=== PATIENT | male | born 1940 | race Caucasian/White ===

== ENCOUNTER → 2023-07-18 08:32 | Outpatient (REF) | payer MEDICARE, SELFPAY ==
[2023-07-18 12:38] LABS: % Basophils 0.5 % (0-2); % Eosinophils 3.6 % (0-6); % Immature Granulocytes 0.3 % (0-0.5); % Lymphocytes 19.4 % (20.5-51.1); % Monocytes 10.6 % (1.7-9.3); % Neutrophils 65.6 % (42.2-75.2); Absolute Eosinophils 0.1 10^3/uL (0-0.7); Absolute Lymphocytes 0.8 10^3/uL (1.2-3.4); Absolute Monocytes 0.4 10^3/uL (0.1-0.6); Absolute Neutrophils 2.5 10^3/uL (1.4-6.5); Hematocrit 30.8 % (39.0-52.0); Hemoglobin 10.4 g/dL (13.0-18.0); Mean Corp Hgb Conc. 33.8 g/dL (33.0-37.0); Mean Corpuscular Hgb 32.5 pg (27.0-31.0); Mean Corpuscular Volume 96.3 fL (80.0-94.0); Mean Platelet Volume 10.2 fL (7.4-10.4); Nucleated Red Blood Cells % 0 % (-); Platelet Count 110 10^3/uL (130-400); White Blood Cell Count 3.9 10^3/uL (4.8-10.8)
[2023-07-18 12:47] LABS: INR 1.18
[2023-07-18 13:00] LABS: ALT (SGPT) 14 U/L (0-50); AST (SGOT) 27 U/L (17-59); Albumin 3.2 g/dl (3.5-5.0); Alkaline Phosphatase 40 U/L (38-126); Blood Urea Nitrogen 20 mg/dl (9-20); Calcium 9.2 mg/dl (8.4-10.2); Carbon Dioxide 22 mmol/L (22-30); Chloride 103 mmol/L (98-107); Glucose 106 mg/dl (70-99); Potassium 4.1 mmol/L (3.5-5.1); Sodium 135 mmol/L (135-145); Total Bilirubin 1.3 mg/dl (0.2-1.3); eGFR 53.84
[2023-07-18 14:50] LABS: Glycohemoglobin (HgbA1c) 5.5 % (4.0-5.6)
[2023-07-18 19:21] LABS: AFP Male/Tumor Marker 1.27 ng/ml
== END ==
LOC: HWLAB 08:32
PROVIDERS: ATTENDING PHYSICIAN Family Medicine
DX: K70.31 Alcoholic cirrhosis of liver with ascites (principal); D64.9 Anemia, unspecified; D69.6 Thrombocytopenia, unspecified; I10 Essential (primary) hypertension; R73.01 Impaired fasting glucose
CPT/HCPCS: 36415; 80053; 82105; 83036; 85025; 85610

== ENCOUNTER → 2023-07-23 10:48 | Outpatient (REF) | payer MEDICARE, SELFPAY ==
[2023-07-23 13:18] LABS: % Basophils 0.2 % (0-2); % Eosinophils 1.8 % (0-6); % Immature Granulocytes 0.2 % (0-0.5); % Monocytes 11.9 % (1.7-9.3); % Neutrophils 70.9 % (42.2-75.2); Absolute Eosinophils 0.1 10^3/uL (0-0.7); Absolute Lymphocytes 0.7 10^3/uL (1.2-3.4); Absolute Monocytes 0.6 10^3/uL (0.1-0.6); Absolute Neutrophils 3.5 10^3/uL (1.4-6.5); Hematocrit 32.3 % (39.0-52.0); Hemoglobin 10.8 g/dL (13.0-18.0); Mean Corp Hgb Conc. 33.4 g/dL (33.0-37.0); Mean Corpuscular Hgb 32.5 pg (27.0-31.0); Mean Corpuscular Volume 97.3 fL (80.0-94.0); Mean Platelet Volume 10.5 fL (7.4-10.4); Nucleated Red Blood Cells % 0 % (-); Platelet Count 119 10^3/uL (130-400); Red Blood Cell Count 3.32 10^6/uL (4.70-6.10); Red Cell Dist. Width 13.9 % (11.5-14.5); White Blood Cell Count 4.9 10^3/uL (4.8-10.8)
[2023-07-23 13:47] LABS: ALT (SGPT) 12 U/L (0-50); AST (SGOT) 26 U/L (17-59); Albumin 3.4 g/dl (3.5-5.0); Alkaline Phosphatase 40 U/L (38-126); Blood Urea Nitrogen 23 mg/dl (9-20); Calcium 9.3 mg/dl (8.4-10.2); Carbon Dioxide 24 mmol/L (22-30); Chloride 104 mmol/L (98-107); Glucose 107 mg/dl (70-99); Potassium 4.6 mmol/L (3.5-5.1); Sodium 137 mmol/L (135-145); Total Bilirubin 0.9 mg/dl (0.2-1.3); Total Protein 6.2 g/dl (6.3-8.2); eGFR 49.25
[2023-07-23 14:15] LABS: PSA, Total - Diagnostic < 0.06 ng/ml (0.0-4.0)
== END ==
LOC: HWLAB 10:48
PROVIDERS: ATTENDING PHYSICIAN Internal Medicine Hematology & Oncology; FAMILY PHYSICIAN Family Medicine
DX: C61 Malignant neoplasm of prostate (principal); C79.51 Secondary malignant neoplasm of bone; D50.9 Iron deficiency anemia, unspecified
CPT/HCPCS: 36415; 80053; 84153; 85025

== ENCOUNTER → 2023-09-12 08:21 | Outpatient (REF) | payer MEDICARE, SELFPAY | LOC: HWRAD 08:21 | PROVIDERS: ATTENDING PHYSICIAN Family Medicine | DX: R06.89 Other abnormalities of breathing (principal) | CPT/HCPCS: 71046 ==

== ENCOUNTER → 2023-09-23 09:53 | Outpatient (REF) | payer MEDICARE, SELFPAY ==
[2023-09-23 10:24] VITALS: BP 136/68; BP_SYST 81
[2023-09-23 11:21] VITALS: BP 154/64
[2023-09-23 12:13] LABS: Body Fluid Glucose 108 mg/dl; Body Fluid LDH < 90 U/L; Body Fluid Protein 2.4 g/dl
[2023-09-23 12:31] LABS: Body Fluid WBC 224 /CUMM
[2023-09-23 12:45] LABS: Body Fluid Second Tech EM
== END ==
LOC: RADI 09:53
PROVIDERS: ATTENDING PHYSICIAN Family Medicine
DX: J90 Pleural effusion, not elsewhere classified (principal); R06.02 Shortness of breath
CPT/HCPCS: 88305; 32555; 71045; 82945; 83615; 84157; 87015; 87070; 87205; 88112; 89051

== ENCOUNTER → 2023-10-04 09:06 | Outpatient (REF) | payer MEDICARE, SELFPAY | LOC: HWRAD 09:06 | PROVIDERS: ATTENDING PHYSICIAN Family Medicine | DX: J90 Pleural effusion, not elsewhere classified (principal) | CPT/HCPCS: 71046 ==

== ENCOUNTER → 2023-10-15 11:02 | Outpatient (REF) | payer MEDICARE, SELFPAY ==
[2023-10-15 15:35] LABS: % Basophils 0.3 % (0-2); % Eosinophils 3.5 % (0-6); % Immature Granulocytes 0.3 % (0-0.5); % Lymphocytes 15.1 % (20.5-51.1); % Monocytes 11.5 % (1.7-9.3); % Neutrophils 69.3 % (42.2-75.2); Absolute Eosinophils 0.2 10^3/uL (0-0.7); Absolute Lymphocytes 0.9 10^3/uL (1.2-3.4); Absolute Monocytes 0.7 10^3/uL (0.1-0.6); Hematocrit 32.6 % (39.0-52.0); Hemoglobin 10.8 g/dL (13.0-18.0); Mean Corp Hgb Conc. 33.1 g/dL (33.0-37.0); Mean Corpuscular Hgb 31.8 pg (27.0-31.0); Mean Corpuscular Volume 95.9 fL (80.0-94.0); Mean Platelet Volume 10.2 fL (7.4-10.4); Nucleated Red Blood Cells % 0 % (-); Platelet Count 120 10^3/uL (130-400); Red Cell Dist. Width 14.7 % (11.5-14.5); White Blood Cell Count 5.8 10^3/uL (4.8-10.8)
[2023-10-15 15:42] LABS: ALT (SGPT) 11 U/L (0-50); AST (SGOT) 27 U/L (17-59); Albumin 3.3 g/dl (3.5-5.0); Alkaline Phosphatase 41 U/L (38-126); Blood Urea Nitrogen 26 mg/dl (9-20); Calcium 9.1 mg/dl (8.4-10.2); Carbon Dioxide 24 mmol/L (22-30); Chloride 104 mmol/L (98-107); Glucose 95 mg/dl (70-99); Potassium 4.3 mmol/L (3.5-5.1); Sodium 134 mmol/L (135-145); Total Bilirubin 1.1 mg/dl (0.2-1.3); Total Protein 6.2 g/dl (6.3-8.2); eGFR 49.25
[2023-10-15 16:11] LABS: PSA, Total - Diagnostic < 0.06 ng/ml (0.0-4.0)
== END ==
LOC: HWLAB 11:02
PROVIDERS: ATTENDING PHYSICIAN Internal Medicine Hematology & Oncology; FAMILY PHYSICIAN Family Medicine
DX: C61 Malignant neoplasm of prostate (principal); C79.51 Secondary malignant neoplasm of bone
CPT/HCPCS: 36415; 80053; 84153; 85025

== ENCOUNTER → 2023-10-29 10:05 | Outpatient (REF) | payer MEDICARE, SELFPAY | LOC: HWRAD 10:05 | PROVIDERS: ATTENDING PHYSICIAN Family Medicine | DX: J90 Pleural effusion, not elsewhere classified (principal) | CPT/HCPCS: 71046 ==

== ENCOUNTER → 2023-12-05 08:22 | Outpatient (REF) | payer MEDICARE, SELFPAY ==
[2023-12-05 09:34] LABS: % Basophils 0.4 % (0-2); % Eosinophils 2.6 % (0-6); % Immature Granulocytes 0.4 % (0-0.5); % Lymphocytes 15.9 % (20.5-51.1); % Neutrophils 69.7 % (42.2-75.2); Absolute Eosinophils 0.1 10^3/uL (0-0.7); Absolute Lymphocytes 0.8 10^3/uL (1.2-3.4); Absolute Monocytes 0.6 10^3/uL (0.1-0.6); Absolute Neutrophils 3.5 10^3/uL (1.4-6.5); Hematocrit 31.4 % (39.0-52.0); Hemoglobin 10.4 g/dL (13.0-18.0); Mean Corp Hgb Conc. 33.1 g/dL (33.0-37.0); Mean Corpuscular Hgb 32.1 pg (27.0-31.0); Mean Corpuscular Volume 96.9 fL (80.0-94.0); Mean Platelet Volume 9.9 fL (7.4-10.4); Nucleated Red Blood Cells % 0 % (-); Platelet Count 107 10^3/uL (130-400); Red Blood Cell Count 3.24 10^6/uL (4.70-6.10); Red Cell Dist. Width 14.5 % (11.5-14.5); White Blood Cell Count 5.1 10^3/uL (4.8-10.8)
[2023-12-05 10:22] LABS: ALT (SGPT) 12 U/L (0-50); AST (SGOT) 29 U/L (17-59); Albumin 3.6 g/dl (3.5-5.0); Alkaline Phosphatase 43 U/L (38-126); Blood Urea Nitrogen 25 mg/dl (9-20); Calcium 9.1 mg/dl (8.4-10.2); Carbon Dioxide 25 mmol/L (22-30); Chloride 106 mmol/L (98-107); Glucose 101 mg/dl (70-99); Potassium 4.8 mmol/L (3.5-5.1); Sodium 138 mmol/L (135-145); Total Bilirubin 1.5 mg/dl (0.2-1.3); Total Protein 6.5 g/dl (6.3-8.2); eGFR 59.26
== END ==
LOC: HWLAB 08:22
PROVIDERS: ATTENDING PHYSICIAN Family Medicine
DX: J90 Pleural effusion, not elsewhere classified (principal); R63.4 Abnormal weight loss; K70.31 Alcoholic cirrhosis of liver with ascites
CPT/HCPCS: 36415; 71046; 80053; 85025

== ENCOUNTER → 2023-12-18 09:49 | Outpatient (REF) | payer MEDICARE, SELFPAY ==
[2023-12-18 12:10] LABS: % Basophils 0.7 % (0-2); % Eosinophils 2.5 % (0-6); % Immature Granulocytes 0.2 % (0-0.5); % Monocytes 10.2 % (1.7-9.3); % Neutrophils 71.4 % (42.2-75.2); Absolute Eosinophils 0.1 10^3/uL (0-0.7); Absolute Lymphocytes 0.9 10^3/uL (1.2-3.4); Absolute Monocytes 0.6 10^3/uL (0.1-0.6); Absolute Neutrophils 4.1 10^3/uL (1.4-6.5); Hematocrit 31.3 % (39.0-52.0); Hemoglobin 10.3 g/dL (13.0-18.0); Mean Corp Hgb Conc. 32.9 g/dL (33.0-37.0); Mean Corpuscular Volume 97.2 fL (80.0-94.0); Mean Platelet Volume 9.9 fL (7.4-10.4); Nucleated Red Blood Cells % 0 % (-); Platelet Count 116 10^3/uL (130-400); Red Blood Cell Count 3.22 10^6/uL (4.70-6.10); Red Cell Dist. Width 14.2 % (11.5-14.5); White Blood Cell Count 5.7 10^3/uL (4.8-10.8)
[2023-12-18 12:21] LABS: INR 1.09; PT 14.1 Sec (11.4-14.6)
[2023-12-18 12:22] LABS: ALT (SGPT) 13 U/L (0-50); AST (SGOT) 30 U/L (17-59); Albumin 3.7 g/dl (3.5-5.0); Alkaline Phosphatase 43 U/L (38-126); Blood Urea Nitrogen 25 mg/dl (9-20); Calcium 8.9 mg/dl (8.4-10.2); Carbon Dioxide 25 mmol/L (22-30); Chloride 105 mmol/L (98-107); Glucose 102 mg/dl (70-99); Potassium 4.5 mmol/L (3.5-5.1); Sodium 137 mmol/L (135-145); Total Bilirubin 1.4 mg/dl (0.2-1.3); Total Protein 6.5 g/dl (6.3-8.2); eGFR 49.25
[2023-12-18 13:05] LABS: AFP Male/Tumor Marker 1.23 ng/ml
== END ==
LOC: HWRAD 09:49
PROVIDERS: ATTENDING PHYSICIAN Internal Medicine Gastroenterology; FAMILY PHYSICIAN Family Medicine
DX: K74.60 Unspecified cirrhosis of liver (principal)
CPT/HCPCS: 36415; 76700; 80053; 82105; 85025; 85610

== ENCOUNTER → 2024-01-14 11:15 | Outpatient (REF) | payer MEDICARE, SELFPAY ==
[2024-01-14 15:43] LABS: % Basophils 0.4 % (0-2); % Eosinophils 2.8 % (0-6); % Immature Granulocytes 0.6 % (0-0.5); % Lymphocytes 16.8 % (20.5-51.1); % Monocytes 10.6 % (1.7-9.3); % Neutrophils 68.8 % (42.2-75.2); Absolute Eosinophils 0.2 10^3/uL (0-0.7); Absolute Lymphocytes 0.9 10^3/uL (1.2-3.4); Absolute Monocytes 0.6 10^3/uL (0.1-0.6); Absolute Neutrophils 3.6 10^3/uL (1.4-6.5); Mean Corp Hgb Conc. 34.5 g/dL (33.0-37.0); Mean Corpuscular Hgb 32.8 pg (27.0-31.0); Mean Corpuscular Volume 95.1 fL (80.0-94.0); Mean Platelet Volume 10.5 fL (7.4-10.4); Nucleated Red Blood Cells % 0 % (-); Platelet Count 118 10^3/uL (130-400); Red Blood Cell Count 3.05 10^6/uL (4.70-6.10); Red Cell Dist. Width 14.2 % (11.5-14.5); White Blood Cell Count 5.3 10^3/uL (4.8-10.8)
[2024-01-14 15:50] LABS: ALT (SGPT) 13 U/L (0-50); AST (SGOT) 28 U/L (17-59); Albumin 3.5 g/dl (3.5-5.0); Alkaline Phosphatase 41 U/L (38-126); Blood Urea Nitrogen 26 mg/dl (9-20); Calcium 9.1 mg/dl (8.4-10.2); Carbon Dioxide 26 mmol/L (22-30); Chloride 106 mmol/L (98-107); Glucose 106 mg/dl (70-99); Sodium 138 mmol/L (135-145); Total Bilirubin 0.9 mg/dl (0.2-1.3); Total Protein 6.2 g/dl (6.3-8.2); eGFR 53.84
[2024-01-14 16:22] LABS: PSA, Total - Diagnostic < 0.06 ng/ml (0.0-4.0)
== END ==
LOC: HWLAB 11:15
PROVIDERS: ATTENDING PHYSICIAN Internal Medicine Hematology & Oncology; FAMILY PHYSICIAN Family Medicine
DX: C61 Malignant neoplasm of prostate (principal); C79.51 Secondary malignant neoplasm of bone
CPT/HCPCS: 36415; 80053; 84153; 85025

== ENCOUNTER 2024-04-02 09:26 | Inpatient (IN) | payer MEDICARE, SELFPAY ==
[2024-04-01] VITALS (10 sets, daily range): BP systolic 110–150; BP diastolic 58–101; PULSE 70–81; BMI 18.9
--- NOTE | 2024-04-01 11:18 | ED.GENMED ---
History of Present Illness
General
Chief Complaint: Rectal Bleeding
Source: patient
Time Seen by Provider: 04/01/24 11:05
History of Present Illness
History of Present Illness:
84-year-old male with past medical history of hypertension, previous prostate cancer and now with radiation proctitis, liver cirrhosis presenting to the emergency department for evaluation of rectal bleeding that has been gradually worsening over
the last 2 weeks, patient noting that initially he would only have 1 bowel movement per day with blood but over the last 48 hours notes he has had 4 or more bowel movements with blood and describes the blood to be bright red in color. Patient
reports that he had a history of an AVM about 20 years ago which required repair but states at the time he was having dark stools. He denies any abdominal pain associated with this. Denies any fevers, chills, rigors. He is also denying any
lightheadedness, dizziness, chest pain, shortness of breath, exertional dyspnea. Patient is not on any anticoagulants.
Past History
Past History
ED Past Medical History: Cancer (Prostate with metastases to the bone, SCC frontal scalp and bone, thrombocytopenia, radiation proctitis), HTN and Other (Esophageal stricture, BPH)
ED Past Surgical History: Urological and Other (Resection of skin cancer)
Social History
Tobacco: Non-smoker
Alcohol: None
Drug: None
Personal:
Living: with family
Review of Systems
Review of Systems
All Other Systems: ROS reviewed and negative except as documented in HPI and ROS
Phy Exam
Physical Exam
Physical Exam:
GENERAL: Alert , thin and appears older than stated age
EYE: clear conjunctiva b/l
HEAD: NCAT
ENT: o/p clr, mmm.
CARDIAC: Regular rate and rhythm .
LUNGS: Clear breath sounds bilaterally, no acute respiratory distress, no wheezes/rales/rhonchi
ABDOMEN: Soft, without focal tenderness, no r/g, no cvat
Rectal exam: Light brown stool, trace positive, no external hemorrhoid
NEUROLOGICAL: Alert and oriented
SKIN: Warm and dry, skin intact.
MUSCULOSKELETAL: No edema, well perfused.
PSYCH: Normal and appropriate interaction.
Scores
Heart Failure Risk
Heart Failure Risk Score: Not Applicable
Heart Score for Chest Pain Patients
STEMI patient?: Not applicable
Withdrawal Assessment of Alcohol
Withdrawal Assessment Completed?: Not applicable
Course
Orders/Labs/Results
Orders:
Orders
04/01/24 11:13
Type+Screen Urgent
Complete Blood Count/With Diff Urgent
Comprehensive Metabolic Panel Urgent
PTT Urgent
Prothrombin Time Urgent
Abnormal Lab Results
04/01/24
11:13
WBC 3.5 L 10^3/uL
(4.8-10.8)
RBC 2.97 L 10^6/uL
(4.70-6.10)
Hgb 10.0 L g/dL
(13.0-18.0)
Hct 28.8 L %
(39.0-52.0)
MCV 97.0 H fL
(80.0-94.0)
MCH 33.7 H pg
(27.0-31.0)
Plt Count 87 L 10^3/uL
(130-400)
Absolute Lymphs (auto) 0.6 L 10^3/uL
(1.2-3.4)
Lymphocytes % 16.5 L %
(20.5-51.1)
Monocytes % 11.7 H %
(1.7-9.3)
BUN 30 H mg/dl
(9-20)
Creatinine 1.4 H mg/dL
(0.7-1.3)
Glucose 104 H mg/dl
(70-99)
Total Bilirubin 1.5 H mg/dl
(0.2-1.3)
Alkaline Phosphatase 32 L U/L
(38-126)
04/01/24 11:13
04/01/24 11:13
Vital Signs
Initial and Last Documented VS:
Initial Vital Signs
Temp Pulse Resp BP Pulse Ox
98.5 F 73 22 126/66 100
04/01/24 09:56 04/01/24 09:56 04/01/24 09:56 04/01/24 09:56 04/01/24 09:56
Last Documented Vital Signs
Temp Pulse Resp BP Pulse Ox
98.5 F 66 12 116/58 99
04/01/24 09:56 04/01/24 12:45 04/01/24 12:45 04/01/24 12:00 04/01/24 12:45
MDM/Problems Addressed
Differential Diagnosis Includes:
Internal/external hemorrhoidal bleeding, diverticular bleed, less concern for upper GI bleed, anemia, less concern for infectious diarrhea
MDM/Problems Addressed:
84-year-old male presenting to the emergency department for evaluation of increasingly bloodied stools over the last 2 weeks. History of radiation proctitis. Patient notes that he has had hemorrhoids in the past. There is also a history of a
small bowel AVM. Patient currently asymptomatic. Hemodynamically patient is stable. Will check labs. Patient known to Dr. Sosa from colorectal surgery and known to GI here as well. Given his age combined with chronic comorbidities patient may
require admission for further evaluation.
Chronic conditions affecting care: Other (Radiation proctitis)
*Pulse Oximetry
Patient hypoxic: no
*Critical Care Note
Total Time (30-74mins, 75-104mins- exclusive of procedures): Not Applicable
Data Reviewed
Review of Other/Old Records Reveals: Labs and Records
Patient Management
Discussion with other providers: Hospitalist
Escalation/DeEscalation of care consider admission/obs:
Patient has a chronic leukopenia. His hemoglobin is 10 which she has been around this in the past but also has had hemoglobins around 11 or 12. Patient also has a mild HANY. Given his age combined with presenting symptom as well as worsening
symptoms over the last 2 weeks will admit for hemoglobin trending as well as possible colorectal consult. Hospitalist team is aware and accepts for continued evaluation and treatment.
ED Attending Note
-
Portions of this chart may have been created with voice recognition software.� Occasional wrong word or��sound alike� substitutions may have occurred due to the inherent limitations of voice recognition software.
Discharge Plan
Departure
Patient Disposition: Admit
Date of Disposition: 04/01/24
Time of Disposition: 12:39
Presentation/result/management discussed w/ accepting MD/DO: Hospitalist
Discharge Problem:
Rectal bleeding, Anemia, HANY (acute kidney injury)
Prescriptions:
No Action
loperamide 2 MG capsule
2 mg PO Q4HPRN PRN (Reason: diarrhea )
omeprazole 20 MG capsule,delayed release(DR/EC)
20 mg PO DAILY
PreserVision AREDS 1 CAP capsule
1 cap PO DAILY
Xgeva 120 MG/1.7 ML solution
120 mg INJ [id number]
Xtandi 40 MG capsule
120 mg PO DAILY
vitamin B complex [B Complete] Tablet
1 tab PO DAILY
diphenhydramine-acetaminophen [Tylenol PM Extra Strength] 25-500 mg Tablet
1 tab PO HSPRN PRN (Reason: sleep)
leuprolide [Lupron] 1 mg/0.2 mL Kit
7.5 mg SC [id number]
Calcium 600 + D(3) 600 mg-5 mcg (200 unit) Capsule
1 cap PO DAILY
furosemide [Lasix] 20 mg tablet
20 mg PO DAILY
spironolactone 50 mg tablet
50 mg PO DAILY
Referrals:
Homar Nguyễn MD [Family Provider] -
Interventions
Interventions:
*Risk Screen - Suicide Last Done: 04/01/24 09:56
*General Assessment Last Done: 04/01/24 09:56
*Neglect/Abuse Screening Last Done: 04/01/24 09:56
*ED COVID-19 Vaccine History Last Done: 04/01/24 11:17
CL-Zvgzmh-Bjhgtxtblg Assessment Last Done: 04/01/24 11:17
ED- Cardiac Assessment Last Done: 04/01/24 11:17
ED- Pulmonary Assessment Last Done: 04/01/24 11:17
Discharge Date and Time
Print Language: JAPANESE
[2024-04-01 11:31] LABS: % Basophils 0.3 % (0-2); % Eosinophils 3.4 % (0-6); % Immature Granulocytes 0.3 % (0-0.5); % Lymphocytes 16.5 % (20.5-51.1); % Monocytes 11.7 % (1.7-9.3); % Neutrophils 67.8 % (42.2-75.2); Absolute Eosinophils 0.1 10^3/uL (0-0.7); Absolute Lymphocytes 0.6 10^3/uL (1.2-3.4); Absolute Monocytes 0.4 10^3/uL (0.1-0.6); Absolute Neutrophils 2.4 10^3/uL (1.4-6.5); Hematocrit 28.8 % (39.0-52.0); Mean Corp Hgb Conc. 34.7 g/dL (33.0-37.0); Mean Corpuscular Hgb 33.7 pg (27.0-31.0); Nucleated Red Blood Cells % 0 % (-); Platelet Count 87 10^3/uL (130-400); Red Blood Cell Count 2.97 10^6/uL (4.70-6.10); Red Cell Dist. Width 14.1 % (11.5-14.5); White Blood Cell Count 3.5 10^3/uL (4.8-10.8)
[2024-04-01 11:40] LABS: ALT (SGPT) 15 U/L (0-50); AST (SGOT) 28 U/L (17-59); Albumin 3.5 g/dl (3.5-5.0); Alkaline Phosphatase 32 U/L (38-126); Blood Urea Nitrogen 30 mg/dl (9-20); Calcium 9.5 mg/dl (8.4-10.2); Carbon Dioxide 26 mmol/L (22-30); Chloride 106 mmol/L (98-107); Glucose 104 mg/dl (70-99); Potassium 4.4 mmol/L (3.5-5.1); Sodium 142 mmol/L (135-145); Total Bilirubin 1.5 mg/dl (0.2-1.3); Total Protein 6.3 g/dl (6.3-8.2); eGFR 48.95
[2024-04-01 11:50] LABS: INR 1.11; PT 14.4 Sec (11.4-14.6)
--- NOTE | 2024-04-01 13:05 | HPS.HSE ---
Family Physician
-
Family Physician: Homar Nguyễn
Chief Complaint
-
bright red blood per rectum
History of Present Illness
Mr. Michael Guy is a 84 yo man with hx metastatic prostate CA, prior GI bleed with AVM and radiation proctitis, liver cirrhosis likely 2/2 history alcohol use, presents to the ER with complaint of rectal bleeding.
Patient states that he has had radiation proctitis and intermittent bleeding for many years. Two weeks ago frequency increased to once every other day, filled up toilet bowl. Then since Saturday has increased to daily and twice a day. Bowel
movements bloody. No fevers/chills. No abdominal pain. No chest pain or shortness of breath. No LE swelling.
He did not have decreased appetite but didn't eat since yesterday lunch and didn't drink anything this morning in preparation for possible procedure.
Medical History
Past Medical History
Past Medical History: Reports Other
Additional Past Medical History:
Prostate Cancer with Metastatic Disease to Bone
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
Depression
Radiation Proctitis
Past Surgical History: Reports Other
Additional Past Surgical History:
Skin Cancer Excision / Plastic Surgery
T&A
Social History
Tobacco: Former Smoker (Quit at age 40, but cites heavy use prior to that of 2 ppd. Total of 40+ pack years.)
Alcohol: Former (History of excessive alcohol intake (drank 'all day') and quit this 2 years ago when metastatic disease diagnosed. Now one drink per week.)
Drug: None
Employment: Retired
Family History
Family History: Other (Brother: Appendiceal Cancer)
Allergies / Home Medications
Allergies reflects when Allergies were last updated in [facility].
Home Medications with original date entered in [facility]
Allergy/Medication List:
Allergies
Allergy/AdvReac Type Severity Reaction Status Date / Time
aspirin AdvReac bleeding Verified 04/01/24 09:55
ciprofloxacin [From Cipro] AdvReac anxiety, Verified 04/01/24 09:55
trembling,
palpatations
ciprofloxacin HCl AdvReac anxiety, Verified 04/01/24 09:55
[From Cipro] trembling,
palpatations
Home Medications
denosumab 120 mg/1.7 mL (70 mg/mL) subcutaneous solution (Xgeva) 120 mg INJ [id number] prostate cancer 11/24/20
enzalutamide 40 mg capsule (Xtandi) 120 mg PO DAILY prostate cancer 11/24/20
loperamide 2 mg capsule 2 mg PO Q4HPRN PRN diarrhea 11/24/20
omeprazole 20 mg capsule,delayed release 20 mg PO DAILY Gastrointestinal issue 11/24/20
vitamins A,C,W-ybhh-tdtlzd 4,296 mcg-226 mg-90 mg capsule (PreserVision AREDS) 1 cap PO DAILY Supplement 11/24/20
calcium 600 mg (as carbonate)-vitamin D3 5 mcg (200 unit) capsule (Calcium 600 + D(3)) 1 cap PO DAILY Supplement 04/01/24
diphenhydramine 25 mg-acetaminophen 500 mg tablet (Tylenol PM Extra Strength) 1 tab PO HSPRN PRN sleep 04/01/24
furosemide 20 mg tablet (Lasix) 20 mg PO DAILY Fluid Retention/Swelling 04/01/24
leuprolide 1 mg/0.2 mL subcutaneous kit 7.5 mg SC [id number] prostate cancer 04/01/24
spironolactone 50 mg tablet 50 mg PO DAILY Blood Pressure 04/01/24
vitamin B complex 1 tab PO DAILY supplement 04/01/24
Review of Systems
-
History Source: Patient
A 12 point ROS was completed and negative except as noted: Yes
Physical Exam
Vital Signs
Vital Signs
Temp Pulse Resp BP Pulse Ox
98.5 F 66 12 116/58 99
04/01/24 09:56 04/01/24 12:45 04/01/24 12:45 04/01/24 12:00 04/01/24 12:45
Physical Exam
General: No Apparent Distress and Other (frail appearing)
HEENT: PERRLA
Respiratory: Clear, Wheezes and Decreased Breath Sounds (right lung base)
Cardiac: S1/S2 and Regular Rhythm
GI: Soft and Non Tender
Musculoskeletal: No Edema
Skin: Warm and Dry; No Rash
Psych: Calm
Laboratory Results
-
04/01/24 11:13
04/01/24 11:13
Laboratory Results
PT 14.4 Sec (11.4-14.6) 04/01/24 11:13
INR 1.11 04/01/24 11:13
APTT 33.0 Sec (23.4-35.0) 04/01/24 11:13
Total Bilirubin 1.5 mg/dl (0.2-1.3) H 04/01/24 11:13
AST 28 U/L (17-59) 04/01/24 11:13
ALT 15 U/L (0-50) 04/01/24 11:13
Alkaline Phosphatase 32 U/L (38-126) L 04/01/24 11:13
Data Reviewed
-
Diagnostic Radiology: Report Reviewed by me
Lab Data: Labs Reviewed by me
Impression/Plan
-
Mr. Michael Guy is a 84 yo man with hx metastatic prostate CA, prior GI bleed with AVM and radiation proctitis, liver cirrhosis likely 2/2 history alcohol use, presents to the ER with complaint of rectal bleeding.
Triage VS: T 98.5, P 73, RR 22, BP 126/66, SpO2 100%
Labs: WBC 3.5, Hg 10.0 (baseline), PLT 87, Na 142, K+ 4.4, BUN 30, Cr 1.4, T. Bili 1.5, AST 28, ALT 15, Alk Phos 32
Bright red blood per rectum
Hx Radiation Proctitis
-patient presents with increased frequency up to twice a day; reassuring Hg stable and VSS
-admit to observation
-trend Hg; s/p type and screen
-patient is not on blood thinners
-clears
-GI consult
Hx Metastatic Prostate CA
-patient on Lupron, Xgeva, Xtandi
Hx Alcoholic Liver disease/cirrhosis
-hold VOLUNTEER SERVICES DIRECTOR lasix/spironolactone in setting of bleed and possible need for prep and NPO
GERD
-VOLUNTEER SERVICES DIRECTOR PPI
DVT PPx SCD
DNR - discussed on admission
--- NOTE | 2024-04-01 14:04 | CON.GI ---
Addendum entered and electronically signed by Edwige James Do, MD 04/01/24 17:03:
I saw and examined the patient.
The HASSOCK MAKER's note was reviewed and I agree with the note.
Comment: Michael is an 84yo M with h/o compensated ETOH cirrhosis and prostate cancer metastatic to the bones who presents for intermittent rectal bleeding. He has remote h/o XRT over 10yrs ago. Denies AC use. There is fecal urgency and leakage.
Vitals stable, exam yellow stool lax sphincter tone. Labs reviewed Hbg 10
Impression
- Rectal bleeding
ddx radiation proctitis, rectal varix or hemorrhoidal
- Fecal incontinence
- ETOH cirrhosis
- Prostate cancer mets to bone and ? pleural effusion
Recommendations
- Golyle prep today
- CLD NPO at [place]
- Plan for colonoscopy with APC tomorrow
- Serial H/H
Will follow with you
Original Note:
Consultation
-
Date/Time Consultation Requested: 04/01/24 1330
Date/Time Consultation Performed: 04/01/24 1400
Requesting Provider: Cynthia Vaughan MD
Performing Provider: TANVI Ace, Edwige Roche MD
Reason for Consultation: rectal bleeding
Medical History
Chief Complaint / HPI
Chief Complaint: rectal bleeding
History of Present Illness:
Pt is 84yo presents with hx prostate CA with prior radiation current therapy( Leuprolide, Xgeva, Xtandi) with mets, squamous cell CA, CKD, AI, Ecoli sepsis/diverticulitis, prior GI bleeding, prior noted AVM radiation proctitis, chronic
diarrhea with Imodium use, cirrhosis with grade I EV on EGD 2021, hx paracentesis several years ago, effusion with prior thoracentesis, humphries's with current admission to ER with rectal bleeding. Pt admits to 10-12 BM daily with use of Imodium
as needed. Stools are loose with feeling of complete evacuation. He states he generally will see streaks of blood in stools and now noted over last 2 week with increased rectal bleeding with entire bowl of blood initially every other day now twice
daily. He did have colonoscopy [address] Bell with noted diverticulosis and 4mmpolyp in sigmoid TA polyp, Erythematous granular mucosa in the sigmoid colon,A few non-bleeding colonic angiectasias consistent with radiation proctitis. Pt also
admits to hx anoscopy done in office with Dr. Sosa with noted similar change of radiation proctitis review of topical therapy.
Pt otherwise admits to pill dysphagia and will get occasional abdominal pain but GERD, nausea, vomiting, constipation or black stools. Pt also with Ct 2021 with adherent stool vs polyp.
-
Past Medical History
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
(aortic insufficiency), Psychiatric (depression) and Other (radiation proctitis, radiation cystitis, ,chronic diarrhea, AVM, cirrhosis, humphries's esophagus, colon polyps, pleural effusion with prior thoracentesis last several months ago, ecoli
sepsis with diverticulitis )
Past Surgical History: Tonsilectomy and Other (mohs and plastic surgery)
Social History
Tobacco: Former Smoker
Alcohol: Former (quit 2-3 years ago)
Drug: None
Personal:
Living: With Family
Employment: Retired
Family History
Family History: Other (brother with colon and appendiceal CA)
Allergies / Home Medications
Allergy/AdvReac Type Severity Reaction Status Date / Time
aspirin AdvReac bleeding Verified 04/01/24 09:55
ciprofloxacin [From Cipro] AdvReac anxiety, Verified 04/01/24 09:55
trembling,
palpatations
ciprofloxacin HCl AdvReac anxiety, Verified 04/01/24 09:55
[From Cipro] trembling,
palpatations
�Medication �Instructions �Recorded
denosumab 120 mg/1.7 mL (70 mg/mL) 120 mg INJ [id number] prostate cancer 11/24/20
subcutaneous solution (Xgeva)
enzalutamide 40 mg capsule (Xtandi) 120 mg PO DAILY prostate cancer 11/24/20
loperamide 2 mg capsule 2 mg PO Q4HPRN PRN diarrhea 11/24/20
omeprazole 20 mg capsule,delayed 20 mg PO DAILY Gastrointestinal 11/24/20
release issue
vitamins A,C,C-cfgt-gyaufs 4,296 1 cap PO DAILY Supplement 11/24/20
mcg-226 mg-90 mg capsule
(PreserVision AREDS)
calcium 600 mg (as 1 cap PO DAILY Supplement 04/01/24
carbonate)-vitamin D3 5 mcg (200
unit) capsule (Calcium 600 + D(3))
diphenhydramine 25 1 tab PO HSPRN PRN sleep 04/01/24
mg-acetaminophen 500 mg tablet
(Tylenol PM Extra Strength)
furosemide 20 mg tablet (Lasix) 20 mg PO DAILY Fluid 04/01/24
Retention/Swelling
leuprolide 1 mg/0.2 mL 7.5 mg SC [id number] prostate cancer 04/01/24
subcutaneous kit
spironolactone 50 mg tablet 50 mg PO DAILY Blood Pressure 04/01/24
vitamin B complex 1 tab PO DAILY supplement 04/01/24
Review of Systems
-
History Source: Patient and Family
EENT: Reports No Symptoms
Respiratory: Reports Trouble Breathing (at times)
Cardiac: Reports No Symptoms
Abdomen/GI: Reports Abdominal Pain, Diarrhea and Bloody Stools
: Reports No Symptoms
Musculoskeletal: Reports No Symptoms
Skin: Reports No Symptoms
Neurological: Reports Weakness
Endocrine: Reports No Symptoms
Hematologic/Lymphatic: Reports Bleeding
Vital Signs
Temp Pulse Resp BP Pulse Ox
98.5 F 66 12 116/58 99
04/01/24 09:56 04/01/24 12:45 04/01/24 12:45 04/01/24 12:00 04/01/24 12:45
Physical Exam
Exam
General: Well Developed, Well Nourished and No Apparent Distress
HEENT: Normocephalic and Anicteric
Respiratory: Other (mild decreased right lung )
Cardiac: Regular Rhythm
GI: Soft, Non Tender and Non Distended
Rectal: Other (per Dr. Roche lax sphincter tone yellow stool, no external skin tags or hemorrhoids, no heme test done)
Genito-urinary: No Costovertebral Tender
Musculoskeletal: No Clubbing and No Cyanosis
Skin: Warm and Dry
Neuro: Awake, Alert and AO x 3
Psych: Calm
Results
WBC 3.5 10^3/uL (4.8-10.8) L 04/01/24 11:13
Hgb 10.0 g/dL (13.0-18.0) L 04/01/24 11:13
Hct 28.8 % (39.0-52.0) L 04/01/24 11:13
MCV 97.0 fL (80.0-94.0) H 04/01/24 11:13
Plt Count 87 10^3/uL (130-400) L 04/01/24 11:13
Absolute Neuts (auto) 2.4 10^3/uL (1.4-6.5) 04/01/24 11:13
PT 14.4 Sec (11.4-14.6) 04/01/24 11:13
INR 1.11 04/01/24 11:13
APTT 33.0 Sec (23.4-35.0) 04/01/24 11:13
Sodium 142 mmol/L (135-145) 04/01/24 11:13
Potassium 4.4 mmol/L (3.5-5.1) 04/01/24 11:13
Chloride 106 mmol/L (98-107) 04/01/24 11:13
Carbon Dioxide 26 mmol/L (22-30) 04/01/24 11:13
BUN 30 mg/dl (9-20) H 04/01/24 11:13
Creatinine 1.4 mg/dL (0.7-1.3) H 04/01/24 11:13
Calcium 9.5 mg/dl (8.4-10.2) 04/01/24 11:13
Total Bilirubin 1.5 mg/dl (0.2-1.3) H 04/01/24 11:13
AST 28 U/L (17-59) 04/01/24 11:13
ALT 15 U/L (0-50) 04/01/24 11:13
Alkaline Phosphatase 32 U/L (38-126) L 04/01/24 11:13
Diagnostic Image Results:
12/2023 US abdomen
1. Mildly nodular hepatic capsular contour and diffuse mildly heterogeneous hepatic echotexture consistent with the given history of cirrhosis. No suspicious focal hepatic lesions identified sonographically.
2. Trace perihepatic ascites and borderline splenomegaly, question portal hypertension. Flow in the main portal vein remains hepatopetal.
3. Cholelithiasis. No findings highly suspicious for acute cholecystitis. There is some mild gallbladder wall thickening, probable combination of underdistention and ascites.
4. Limited evaluation of midline structures secondary to overlying bowel gas as above.
2021 CT Abd/pelvis W Iv Cont; CT Chest Angio W/wo Iv Contras
Moderate to large volume ascites.
Findings suspicious for cirrhosis.
Diverticulosis without acute diverticulitis. No focal collection or abscess. No bowel obstruction. No obstructive uropathy.
Cholelithiasis.
Small to moderate right and small left pleural effusion.
Stable diffuse ectasia of the ascending aorta, measuring up to 4.5 cm. No focal aneurysmal dilatation. No evidence of aortic dissection.
Stable osteosclerotic metastatic disease.
1.5 cm soft tissue nodule along the splenic flexure colonic margin, which may be related to adherent stool. Polyp cannot be excluded. Consider further evaluation with follow-up colonoscopy.
Prior GI Procedures:
EGD: 2021 - Grade I esophageal varices.
- Normal stomach.
- A few duodenal polyps. Biopsied. bx neg
- Normal second portion of the duodenum.
Colonoscopy: [address] Bell with noted diverticulosis and 4mmpolyp in sigmoid TA polyp, Erythematous granular mucosa in the sigmoid colon,A few non-bleeding colonic angiectasias consistent with radiation proctitis
Assessment / Plan
-
Pt is 84yo presents with hx prostate CA with prior radiation with current therapy( Leuprolide, Xgeva, Xtandi) with mets, squamous cell CA, CKD, Ecoli sepsis/diverticulitis, AI, prior GI bleeding, prior noted AVM radiation proctitis, chronic
diarrhea with Imodium use, cirrhosis with grade I EV on EGD 2021, hx paracentesis several years ago, effusion with prior thoracentesis, humphries's with current admission to ER with rectal bleeding. Pt admits to 10-12 BM daily with use of Imodium
as needed. Stools are loose with feeling of complete evacuation. He states he generally will see streaks of blood in stools and now noted over last 2 week with increased rectal bleeding with entire bowl of blood initially every other day now twice
daily. He did have colonoscopy [address] Bell with noted diverticulosis and 4mmpolyp in sigmoid TA polyp, Erythematous granular mucosa in the sigmoid colon,A few non-bleeding colonic angiectasias consistent with radiation proctitis. Pt also
admits to hx anoscopy done in office with Dr. Sosa with noted similar change of radiation proctitis review of topical therapy. On admission hbg 10, platelets 87,000, creat 1.4.
-rectal bleeding
-hx metastatic prostate CA to bone -- prior radiation current Leuprolide, Xgeva, Xtandi
-cirrhosis with hx grade I EV 2021, paracentesis 2021, no HE, AFP 1.23 12/2023
-chronic diarrhea
-anemia
-hx prior noted colonic angioectasia c/w radiation proctitis
-CT 2021 with 1.5 cm soft tissue nodule along splenic flexure adherent stool vs polyp
-thrombocytopenia
other medical problems:
-squamous cell CA
- hx GI bleed
-colon polyp
-humphries's
-Ecoli sepsis diverticulitis
-pleural effusion with prior thoracentesis
-Prior ETOH abuse quit 2-3 years ago
-GERD
-CKD
-aortic insufficiency
PLAN:
etiology of bleeding related to radiation proctitis, hemorrhoids, polyps, rectal varices vs other
plan for colonoscopy tomorrow
if radiation proctitis noted reviewed with pt can consider APC during procedure
hbg stable at 10 cont to trend current MELD
ok for clear diet today
reviewed options as concern for anesthesia but now agreeable to proceed
OP follow up with Dr. Carreon with continued follow for cirrhosis -- current MELD 11
will follow
-
-
Thank you for consultation and allowing me to participate in the patient's care. Please call the salesperson burial needs GI physician during the after hours with any questions or concerns.
[2024-04-01] MEDS: NULYTELY SOLUTION 4 LITERS PO (16:04)
--- NOTE | 2024-04-01 20:25 | PTCARENOTE ---
Patient arrived via stretcher. AAOx3, VSS. Pt ambulated into the room. Incontinent of loose stool. No blood observed in liquid stools. Pt oriented to the unit. Discussed plan of care and NPO status after midnight. Call interiano is within reach.
[2024-04-01 20:48] LABS: Hematocrit 30.2 % (39.0-52.0); Hemoglobin 10.5 g/dL (13.0-18.0)
[2024-04-02] VITALS (11 sets, daily range): BP systolic 89–125; BP diastolic 50–106; BMI 18.9
[2024-04-02 06:04] LABS: Hematocrit 26.4 % (39.0-52.0); Hemoglobin 9.2 g/dL (13.0-18.0); Mean Corp Hgb Conc. 34.8 g/dL (33.0-37.0); Mean Corpuscular Hgb 32.5 pg (27.0-31.0); Mean Corpuscular Volume 93.3 fL (80.0-94.0); Mean Platelet Volume 10.4 fL (7.4-10.4); Platelet Count 78 10^3/uL (130-400); Red Blood Cell Count 2.83 10^6/uL (4.70-6.10)
[2024-04-02 06:36] LABS: ALT (SGPT) 16 U/L (0-50); AST (SGOT) 34 U/L (17-59); Albumin 3.3 g/dl (3.5-5.0); Alkaline Phosphatase 27 U/L (38-126); Blood Urea Nitrogen 30 mg/dl (9-20); Carbon Dioxide 25 mmol/L (22-30); Chloride 105 mmol/L (98-107); Estimated Creatinine Clearance 37 ml/min; Glucose 79 mg/dl (70-99); Potassium 4.3 mmol/L (3.5-5.1); Sodium 140 mmol/L (135-145); Total Bilirubin 1.6 mg/dl (0.2-1.3); Total Protein 5.8 g/dl (6.3-8.2); eGFR 58.89
[2024-04-02] MEDS: PROTONIX 40 MG PO (08:15)
[2024-04-02] MEDS: OCUVITE SOFTGEL 1 CAP PO (08:15)
--- NOTE | 2024-04-02 09:18 | W.PN.HOSP.TC ---
Today's Communication/Plan
-
f/w GI recommendations
monitor H&H
Assessment / Plan
Assessment / Plan
Physical Exam
General: No Apparent Distress and Other (frail appearing)
HEENT: PERRLA
Respiratory: Clear, Wheezes and Decreased Breath Sounds (right lung base)
Cardiac: S1/S2 and Regular Rhythm
GI: Soft and Non Tender
Musculoskeletal: No Edema
Skin: Warm and Dry; No Rash
Psych: Calm
Mr. 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
#Acute blood loss anemia
Bright red blood per rectum
Hx Radiation Proctitis
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
x of Secondary esophageal varices
-ddx radiation proctitis, rectal varix or hemorrhoidal
HGB on admission 10.0, down to 9.2
-s/p type and screen
-patient is not on blood thinners
- No abd pain, had bowel prep, for colonoscopy 04/02
Appreciate GI help
# Chronic thrombocytopenia
# HANY
Creatinine on admission 1.4, coming down to 1.2 today
No flank pain
# Hx Metastatic Prostate CA
Primary oncologist Dr Blackwood and DR Quinteros
-patient on Lupron, Xgeva, Xtandi
Hx Alcoholic Liver cirrhosis
Hx of ascites s/p paracentesis
Thrombocytopenia
-held SUBSTATION WIREMAN lasix/spironolactone in setting of bleed and possible need for prep and NPO
GERD
-SUBSTATION WIREMAN PPI
DVT PPx SCD
DNR - discussed on admission
Total time spent to see the patient on the floor, examine the patient, review data and lab results, discuss treatment plan with patient, nursing staff around 55 minutes
Anticipated Discharge: 24 - 48 hours
Subjective/Interval History
-
Date of Service: April 02, 2024
No chest pain
No sob
No headache
No rectal bleeding, took the Glycol
Objective Data
-
Labs:
Laboratory Results
04/02/24
04:39
WBC 3.0 L
Hgb 9.2 L
Hct 26.4 L
Plt Count 78 L
Sodium 140
Potassium 4.3
Chloride 105
Carbon Dioxide 25
BUN 30 H
Creatinine 1.2
Glucose 79
Calcium 9.0
Total Bilirubin 1.6 H
AST 34
ALT 16
Alkaline Phosphatase 27 L
Vital Signs:
Vital Signs
Temp Pulse Resp BP Pulse Ox
98.0 F 73 18 114/70 98
04/01/24 23:46 04/01/24 23:46 04/01/24 23:46 04/01/24 23:46 04/01/24 23:46
--- NOTE | 2024-04-02 10:25 | PTCARENOTE ---
Dr Roche evaluated patient in PACU for abdominal cramping ( #10/). Instructed to keep patient in PACU until flatus is passed. Instructed to turn patient side to side to expedite flatus, RN assisted patient with this process. No pain medication
ordered at this time. Dr Roche to re-eval patient pain level.
--- NOTE | 2024-04-02 11:27 | W.PN.UPDATE ---
Update Note
Progress Note Update
Post colonoscopy patient updated with results. D/w hospitalist who did contact oncology and colorectal surgery.
Patient later in post op area reported 9-10/10 abd pain
However vitals stable, abdominal exam soft, and he appears comfortable
Recommend ambulation and moving side to side to pass air/gas
AXR upright ordered to r/o free air.
Will follow with you
--- NOTE | 2024-04-02 11:35 | CON.CRS ---
Consultation
-
Date/Time Consultation Requested: 04/02/2024, 11:00
Date/Time Consultation Performed: 04/02/2024, 13:30
Requesting Provider: Esperanza Bang MD
Performing Provider: Elver Sosa MD
Reason for Consultation: colon mass
Medical History
-
Chief Complaint: Rectal bleeding
History of Present Illness:
84-year-old male with a PMH of stage IV prostate cancer, presents to [facility] on 04/01/2024 complaining of rectal bleeding. The patient has had diarrhea upwards of 10-15 times per day for the past several months. He has stage IV prostate
cancer and has bony mets. He is currently on Lupron, Xgeva and Xtandi and is managed by Dr. Blackwood. His previous abdominal surgery included a left groin hernia repair. He underwent a colonoscopy today by Dr. Roche and a large partially obstructing mass
in the descending colon around 50cm from anal verge. Afterwards, the patient complained of severe abdominal pain. Abdominal xray showed free air under the liver. At the bedside, the patient is shaking and complaining of severe LLQ pain. He currently
states his pain is a 9/10 and he has the chills. We have been asked for further surgical evaluation.
Past Medical History
Past Medical History: Cancer (stage IV prostate cancer, (bone mets on lupron/xgeva/xteandi) squamous cell cancer (heck/neck)), Hypercholesterolemia, Psychiatric (depression), Valvular Disease (aortic insufficiency) and Other (radiation proctitis,
renal failure, AVM, cirrhosis, humphries's esophagus)
Past Surgical History: Tonsilectomy and Other (mohs/plastic surgery)
Social History
Tobacco: Former Smoker
Alcohol: Former
Drug: None
Personal:
Living: With Family
Family History
Family History: Cancer (brother- colon and appendiceal cancer)
Allergies / Home Medications
Allergy/AdvReac Type Severity Reaction Status Date / Time
aspirin AdvReac bleeding Verified 04/01/24 09:55
ciprofloxacin [From Cipro] AdvReac anxiety, Verified 04/01/24 09:55
trembling,
palpatations
ciprofloxacin HCl AdvReac anxiety, Verified 04/01/24 09:55
[From Cipro] trembling,
palpatations
�Medication �Instructions �Recorded �Confirmed �Type
denosumab 120 mg/1.7 mL (70 mg/mL) 120 mg INJ [id number] prostate cancer 11/24/20 04/01/24 History
subcutaneous solution (Xgeva)
enzalutamide 40 mg capsule (Xtandi) 120 mg PO DAILY prostate cancer 11/24/20 04/01/24 History
loperamide 2 mg capsule 2 mg PO Q4HPRN PRN diarrhea 11/24/20 04/01/24 History
omeprazole 20 mg capsule,delayed 20 mg PO DAILY Gastrointestinal 11/24/20 04/01/24 History
release issue
vitamins A,C,Q-dsry-jcxfbe 4,296 1 cap PO DAILY Supplement 11/24/20 04/01/24 History
mcg-226 mg-90 mg capsule
(PreserVision AREDS)
calcium 600 mg (as 1 cap PO DAILY Supplement 04/01/24 04/01/24 History
carbonate)-vitamin D3 5 mcg (200
unit) capsule (Calcium 600 + D(3))
diphenhydramine 25 1 tab PO HSPRN PRN sleep 04/01/24 04/01/24 History
mg-acetaminophen 500 mg tablet
(Tylenol PM Extra Strength)
furosemide 20 mg tablet (Lasix) 20 mg PO DAILY Fluid 04/01/24 04/01/24 History
Retention/Swelling
leuprolide 1 mg/0.2 mL 7.5 mg SC [id number] prostate cancer 04/01/24 04/01/24 History
subcutaneous kit
spironolactone 50 mg tablet 50 mg PO DAILY Blood Pressure 04/01/24 04/01/24 History
vitamin B complex 1 tab PO DAILY supplement 04/01/24 04/01/24 History
Review of Systems
-
History Source: Patient
Abdomen/GI: Abdominal Pain, Diarrhea and Bloody Stools
A 10 point review of systems was completed, and was negative except as per HPI.
Physical Exam
Vital Signs
Temp 97.6 F 04/02/24 11:13
Pulse 77 04/02/24 11:13
Resp Rate 18 04/02/24 11:13
Blood pressure 115/58 04/02/24 11:13
SaO2 100 04/02/24 11:13
04/01/24 04/02/24 04/03/24
06:59 06:59 06:59
Actual Weight 59.874 kg
Body Mass Index (BMI) 18.9
Lab Results / Allergies
04/02/24 04:39
WBC 3.0 10^3/uL (4.8-10.8) L 04/02/24 04:39
Hgb 9.2 g/dL (13.0-18.0) L 04/02/24 04:39
Hct 26.4 % (39.0-52.0) L 04/02/24 04:39
Plt Count 78 10^3/uL (130-400) L 04/02/24 04:39
Abs Immat Gran (auto) 0.0 10^3/uL (0-0.05) 04/01/24 11:13
Neutrophils % 67.8 % (42.2-75.2) 04/01/24 11:13
Allergy/AdvReac Type Severity Reaction Status Date / Time
aspirin AdvReac bleeding Verified 04/01/24 09:55
ciprofloxacin [From Cipro] AdvReac anxiety, Verified 04/01/24 09:55
trembling,
palpatations
ciprofloxacin HCl AdvReac anxiety, Verified 04/01/24 09:55
[From Cipro] trembling,
palpatations
Physical Exam
General: Pain and Chills
GI: Tender (LLQ - severe)
Skin: Warm and Dry
Neuro: AO x 3
Psych: Calm
Data Reviewed
-
Medical Tests (Nuc Med, Echo etc): Other (colonoscopy report)
Labs: Labs Reviewed by me and Discussed with Physician
Old Records: Reviewed
Assessment / Plan
-
Assessment: 84 yo male with stage IV prostate cancer with a descending colon mass s/p colonoscopy with biopsies today with free air under the liver
Plan:
-Urgent OR
-NPO
-IV antibiotics
-TEDs/SCDs ordered
-Blood it application support analyst to OR
-Platelets it application support analyst the OR
-Wound RN for stoma marking
[2024-04-02] MEDS: DILAUDID 0.5 MG IV (12:15)
[2024-04-02] MEDS: NSS 500 IV (12:17)
--- NOTE | 2024-04-02 12:21 | PTCARENOTE ---
Patient returned to the GI lab with complaints of severe abdominal pain - diffuse in nature. Abdominal xray done. Hospitalist made aware. 500 ml IV bolus of NSS started. Dilaudid 0.5 mg IV given for pain. Blood consent obtained my MD. Awaiting
results of xray. Patient does have some bloody rectal discharge.
--- NOTE | 2024-04-02 12:32 | W.PN.UPDATE ---
Addendum entered and electronically signed by Esperanza Bang MD 04/02/24 13:22:
Addendum:
Perforated bowel
Patient is going to OR
c/w NPO, IV Zosyn, IV PPI, IVF for now
Transfer to high level care/ ICU-[facility]
will follow closely and manage.
Appreciate surgery help
Original Note:
Update Note
Progress Note Update
I was informed by Dr Roche about pt's post procedure abdominal pain
Saw the patient in 404-1
Pt is in distress, complaining of severe abd pain
Fresh blood per rectum , small amount
Abdomen is diffusely tender, not distended.
Bp 147/ 64
A/P Possible post op perforation, exacerbation of rectal bleeding due to colonic mass that was seen, bleeding from biopsy site Vs others
Stat NS Bolus
Will give Stat IV Dilaudid for pain
H& H checks
Cardiac tele monitoring
Blood consent signed by the patient
X ra of abdomen possible free air seen
Will transfer to higher level of care
Will follow with surgery and GI
Total critical time spent to see the patient on the floor, examine the patient, review data and lab results, discuss treatment plan with patient, GI doctor, oncology, nursing staff around 75 minutes
--- NOTE | 2024-04-02 12:37 | W.PN.UPDATE ---
Update Note
Progress Note Update
D/w radiologist. There is small volume of free air on AXR left lateral decub
Patient shivering and continued abd pain
Evaluated bedside with colorectal surgery and recommendation is for urgent surgery to treat colonic mass, rectal bleeding and perforation
Will transfer pt to ICU/higher level of care.
Two calls made to Talia went to left . Also called daughter listed and left message.
Hospitalist, RN and colorectal team updated.
--- NOTE | 2024-04-02 12:42 | PTCARENOTE ---
Abdominal xray with free air in abdomen. GI and Colorectal surgery at bedside. Patient placed on tele. Currently - Stach/heart rate 108. Patient with tremors of upper body.
[2024-04-02] MEDS: ZOSYN 50 IV ×2 (12:54→18:42)
[2024-04-02 13:09] LABS: Hemoglobin 11.4 g/dL (13.0-18.0)
[2024-04-02] MEDS: D5/0.9% SODIUM CHLORIDE 1000 IV (13:30)
--- NOTE | 2024-04-02 13:33 | WOUNDNOTE ---
[facility] RN NOTE: Patient visited for bilateral stoma marking. Patient c/o of lower abdominal pain and tenderness and was shivering during assessment. Procedure and rationale for stoma siting explained to patient and family. The recuts abdominal muscle
was located and care was taken to avoid creases and folds. Patient and family made aware that surgeon will make final determination of stoma placement. TT with Jodi MEHTA to notify that best place for stoma is below umbilical line due to many
folds in the upper quadrant. Will continue to follow with patient after surgery.
--- NOTE | 2024-04-02 13:43 | PTCARENOTE ---
Report called to OR. Patient will go to ICU after surgery. Vital signs stable.
--- NOTE | 2024-04-02 14:17 | CM ---
Alert awake oriented patient who lives with his Talia in [place] [facility] who lives in an apartment. He is independent in driving and in all activities of daily living.He had colonoscopy this am and will need to be transferred
to ICU with further surgery. LM with and daughter with no call back.
No VN hx / No SNF history
Pharmacy [facility]
PCP DR Zhong
PLAN Will depend on course of hospital stay
--- NOTE | 2024-04-02 14:32 | CM ---
Alert awake oriented patient who lives with his Talia in [facility] independent [facility] who lives in an apartment. He is independent in driving and in all activities of daily living.He had colonoscopy this am and will need to be transferred
to ICU with further surgery. LM with and daughter with no call back.
No VN hx / No SNF history
Pharmacy [facility]
PCP DR Zhong
PLAN Will depend on course of hospital stay
--- NOTE | 2024-04-02 14:40 | CON.INTV ---
Consultation
Consultation Request
Date/Time Consultation Requested: 04/02/2024-3 PM
Date/Time Consultation Performed: 04/02/2024-4 PM
Requesting Provider: Hospitalist
Performing Provider: Dr. Cotto
Reason for Consultation: Postoperative critical care management
Medical History
-
Chief Complaint: Bowel perforation
History of Present Illness:
84-year-old male with a history of stage IV prostate cancer with bone mets, hyperlipidemia, depression, radiation proctitis, cirrhosis and Paulino's esophagus who presented with significant diarrhea for several months and underwent colonoscopy noted
to have a large partially obstructing mass descending colon noted to have perforation and went to the OR-manager relocation consulted for postoperative critical care management 04/02/2024.
Past Medical History
Past Medical History: None (Prostate cancer stage IV with bony mets status post radiation on Lupron/Xgeva/Xtandi. Radiation proctitis. Squamous cell cancer skin. Hyperlipidemia. Depression. Aortic insufficiency. AVM. Cirrhosis. Paulino's
esophagus. Tonsillectomy.)
Social History
Tobacco: Former Smoker
Alcohol: Former
Drug: None
Personal:
Living: With Family
Occupational Exposures: No known asbestos exposure
Environmental Exposures: No known tuberculosis exposure
Family History
Family History: Other (Brother-colon and appendiceal cancer.)
Allergies / Home Medications
Allergies
Allergy/AdvReac Type Severity Reaction Status Date / Time
aspirin AdvReac bleeding Verified 04/01/24 09:55
ciprofloxacin [From Cipro] AdvReac anxiety, Verified 04/01/24 09:55
trembling,
palpatations
ciprofloxacin HCl AdvReac anxiety, Verified 04/01/24 09:55
[From Cipro] trembling,
palpatations
Home Medications
�Medication �Instructions �Recorded �Confirmed �Last Taken �Type
denosumab 120 mg/1.7 mL (70 mg/mL) 120 mg INJ [id number] prostate cancer 11/24/20 04/01/24 1 Month Ago History
subcutaneous solution (Xgeva) ~12/09/21
enzalutamide 40 mg capsule (Xtandi) 120 mg PO DAILY prostate cancer 11/24/20 04/01/24 03/31/24 History
loperamide 2 mg capsule 2 mg PO Q4HPRN PRN diarrhea 11/24/20 04/01/24 11/21/20 History
omeprazole 20 mg capsule,delayed 20 mg PO DAILY Gastrointestinal 11/24/20 04/01/24 03/31/24 History
release issue
vitamins A,C,H-nmxs-nqxijz 4,296 1 cap PO DAILY Supplement 11/24/20 04/01/24 03/31/24 History
mcg-226 mg-90 mg capsule
(PreserVision AREDS)
calcium 600 mg (as 1 cap PO DAILY Supplement 04/01/24 04/01/24 03/31/24 History
carbonate)-vitamin D3 5 mcg (200
unit) capsule (Calcium 600 + D(3))
diphenhydramine 25 1 tab PO HSPRN PRN sleep 04/01/24 04/01/24 Unknown History
mg-acetaminophen 500 mg tablet
(Tylenol PM Extra Strength)
furosemide 20 mg tablet (Lasix) 20 mg PO DAILY Fluid 04/01/24 04/01/24 03/31/24 History
Retention/Swelling
leuprolide 1 mg/0.2 mL 7.5 mg SC [id number] prostate cancer 04/01/24 04/01/24 Unknown History
subcutaneous kit
spironolactone 50 mg tablet 50 mg PO DAILY Blood Pressure 04/01/24 04/01/24 03/31/24 History
vitamin B complex 1 tab PO DAILY supplement 04/01/24 04/01/24 03/31/24 History
Review of Systems
-
Unable to Obtain full review of systems at this time due to: Other (Per HPI)
Vitals / Labs / Diagnostic Testing
Vital Signs
Temp Pulse Resp BP Pulse Ox
97.6 F 77 18 115/58 99
04/02/24 11:13 04/02/24 11:13 04/02/24 11:13 04/02/24 11:13 04/02/24 12:40
Lab Data
04/02/24 04:39
Diagnostic Testing:
Physical Exam
-
Exam:
Well-nourished and well-developed in no apparent distress
HEENT-atraumatic, normocephalic, oral tracheal intubation
Neck-supple, no JVD, no bruit
Heart-regular rate and rhythm-no murmurs, rubs or gallops
Chest-clear to auscultation, no wheezes, crackles, somewhat barrel chested
Abdomen-soft, nontender, nondistended, no hepatosplenomegaly
Extremities-no cyanosis, clubbing, edema and good peripheral pulses
Integument-intact, no rashes, lesions or ecchymosis
Neurology-alert and oriented, nonfocal motor and sensory exam
Assessment
-
84-year-old male with a history of stage IV prostate cancer with bone mets, hyperlipidemia, depression, radiation proctitis, cirrhosis and Paulino's esophagus who presented with significant diarrhea for several months and underwent colonoscopy noted
to have a large partially obstructing mass descending colon noted to have perforation and went to the OR-manager relocation consulted for postoperative critical care management 04/02/2024.
Colonic mass status post colonoscopy/suspected perforation
Emergent OR 04/02/2024-
Fmwikb-qmnafgbetj-cienjdoxcy 10.0
Leukopenia-WBC 3.0
Thrombocytopenia-platelets 78
Mild hyperglycemia
HANY-improved
Elevated total bilirubin
Nodular opacifications posterior lung funes measuring up to 1.2 cm on chest x-ray 11/2023
Conditions present prior to admission:
Prostate cancer stage IV with bony mets status post radiation on Lupron/Xgeva/Xtandi.
Radiation proctitis.
Squamous cell cancer skin.
Hyperlipidemia.
Depression.
Aortic insufficiency.
AVM.
Cirrhosis-former drinker
Former smoker
COPD
Right pleural effusion--1700 mL transudate 09/2023
Paulino's esophagus.
Cholelithiasis
Tonsillectomy.
Plan
Patient will be monitored closely postoperatively in the surgical intensive care unit
Ventilator settings reviewed
Spontaneous breathing trial
Check ABG
Hope to extubate
Aspiration precautions
VAP prevention protocol
Incentive spirometry
Nebulizers if needed-likely history of COPD-currently not bronchospastic
Surgery following-correspondence reviewed
Status post OR
Nasogastric tube per surgery
Wound nurse for stoma
Gastroenterology following
Colonoscopy noted-biopsy pending as well as operative pathology
Follow hemoglobin
Transfuse as needed
Monitor thrombocytopenia-again transfuse as needed
Intravenous fluids
Monitor renal function
DVT prophylaxis
GI prophylaxis
Nutrition per surgery and gastroenterology
Early mobilization
Most recent chest x-ray with 3 nodular opacifications 11/2023-CT chest recommended, repeat chest x-ray this admission reviewed-outpatient pulmonary xqyewi-fp-broxfd has COPD as well
Critical care statement: A total of 55 minutes of critical care time was provided for this patient today. This includes management of unstable vital signs, evaluation of the patient at bedside, reviewing the patient's pertinent medical records
including radiographs, microbiology, laboratory evaluations, and discussion with primary team, consultants, pharmacy, nutrition, physical therapy, case management, charge nurse, critical care nursing, and respiratory therapy.
Diagnostic data:
Chest x-ray-01/04/2022-new pleural-based mass versus right hemidiaphragm eventration versus loculated pleural effusion, COPD changes, osteopenia, mild osteoblastic metastatic disease
Chest x-ray 12/05/2023-small right pleural effusion, 3 nodular opacifications posterior lung funes measuring up to 1.2 cm, repeat CT chest recommended
CT chest 01/08/2022-large volume ascites, suspicious for cirrhosis, diverticulosis, cholelithiasis, moderate right and small left pleural effusion, no pulmonary emboli, no hilar or mediastinal mass or enlarged adenopathy
Thoracentesis 09/23/23-successful 1700 mL clear fluid removal from the right
Echocardiogram 01/09/2022-EF 60-65%, no severe valvular disease
Data Reviewed
-
EKG: Report reviewed by me
Radiology: Report reviewed by me
CT Scan: Report reviewed by me
Ultrasound: Report reviewed by me
Medical Tests (Nuc Med, Echo etc): Report reviewed by me
Labs: Labs reviewed by me
Old Records: Reviewed
Critical Care Time (in minutes): 55
[2024-04-02 16:11] LABS: B.E. - POC -4.6 mmol/L; Glucose - POC 106 mg/dl (70-99); HCO3 - POC 21 mmol/L (21-29); Hematocrit - POC 27 % PCV (42-52); Hemodilution- POC Yes; Hemoglobin Calculated - POC 9.1; Ionized Calcium - POC 1.02 mmol/L (1.12-1.27); Lactate - POC 1.53 mmol/L (0.36-0.75); O2 Saturation %Calculated-POC 99.7 % (92-96); PCO2 - POC 37 mmHg (35-45); PO2 - POC 211 mmHg (80-100); Sodium - POC 140 mmol/L (135-145); pH - POC 7.35 (7.35-7.45)
--- NOTE | 2024-04-02 17:49 | W.OR.COLCA ---
Addendum entered and electronically signed by Robert Regalado MD 04/02/24 19:16:
Correction: was loop rather than an end ileostomy.
Addendum entered and electronically signed by Robert Regalado MD 04/02/24 18:23:
Attempted to contact patient's unsuccessfully. Spoke to patient's daughter, Luly, on phone and updated.
Original Note:
Colon Cancer Post Op Note
Immediate Post Op
Primary Surgeon: Tez Regalado MD
Assisting Surgeon: Jackie Caputo MD
Pre-op Diagnosis: pneumoperitoneum
Post-op Diagnosis: same
Procedure Performed: 1) exploratory laparotomy 2) abdominal colectomy with ileostomy
Anesthesia Type: general plus local
Specimen / Cultures: abdominal colon
Estimated Blood Loss: 750 cc
Complications: no immediate
Operative Findings: 1) perforation of cecum 2) intestinal malrotation 3) splenic flexure mass with associated tattoo 4) small bowel adhesion to rectosigmoid junction 3) very oozy during operation
Colon Resection
Colon Resection
Operation performed with curative intent: No
Tumor Location: Splenic Flexure
Total Abdominal Colectomy: Ileocolic, Right Colic and Middle Colic
[2024-04-02] MEDS: NORMOSOL-R/PLASMALYTE-A 1000 IV ×2 (18:26→23:10)
[2024-04-02] MEDS: DILAUDID 0.25 MG IV (18:42)
--- NOTE | 2024-04-02 18:44 | W.PN.UPDATE ---
Update Note
Progress Note Update
I d/w surgery Dr Regalado , s/p colectomy with ileostomy
Blood loss during surgery
Will order 2 units of blood, consent signed by patient prior to surgery
Pressure support as needed to keep MAP around 65
c/w IVF
Rechecked H&H
Remains critical and intubated, receiving full resuscitative measures (patient agreed)
Check ABG post op and in AM
Chest x ray in AM
Blood work in AM
Will d/w java integration developer
[2024-04-02 18:48] LABS: % Basophils 0.2 % (0-2); % Eosinophils 0.1 % (0-6); % Immature Granulocytes 0.3 % (0-0.5); % Lymphocytes 9.7 % (20.5-51.1); % Monocytes 8.2 % (1.7-9.3); % Neutrophils 81.5 % (42.2-75.2); Absolute Lymphocytes 0.9 10^3/uL (1.2-3.4); Absolute Monocytes 0.8 10^3/uL (0.1-0.6); Absolute Neutrophils 7.9 10^3/uL (1.4-6.5); Hematocrit 24.5 % (39.0-52.0); Hemoglobin 8.5 g/dL (13.0-18.0); Mean Corp Hgb Conc. 34.7 g/dL (33.0-37.0); Mean Corpuscular Hgb 30.9 pg (27.0-31.0); Mean Corpuscular Volume 89.1 fL (80.0-94.0); Mean Platelet Volume 9.4 fL (7.4-10.4); Nucleated Red Blood Cells % 0 % (-); Platelet Count 177 10^3/uL (130-400); Red Blood Cell Count 2.75 10^6/uL (4.70-6.10); Red Cell Dist. Width 14.7 % (11.5-14.5); White Blood Cell Count 9.6 10^3/uL (4.8-10.8)
--- NOTE | 2024-04-02 18:56 | PTCARENOTE ---
Pt received to ICU bed 3368 direct back from OR.
Pt intubated on vent A/C 14/500/60%/5. FiO2 weaned to 40%. SpO2 100% at this time.
Sinus tach with first degree. No edema. Received on 4 mcg/min Levophed, weaned to 3mcg/min. BP via left radial a-line.
New colostomy RLQ. Midline incision with aqualcel C/D/I. NGT to low intermittent suction.
Hicks draining jagjit urine.
[2024-04-02 19:03] LABS: Blood Urea Nitrogen 25 mg/dl (9-20); Calcium 6.7 mg/dl (8.4-10.2); Carbon Dioxide 17 mmol/L (22-30); Chloride 108 mmol/L (98-107); Estimated Creatinine Clearance 50 ml/min; Glucose 129 mg/dl (70-99); Magnesium 1.6 mg/dl (1.6-2.3); Potassium 4.2 mmol/L (3.5-5.1); Sodium 139 mmol/L (135-145); eGFR > 60.00
--- NOTE | 2024-04-02 19:40 | W.PN.UPDATE ---
Update Note
Progress Note Update
Patient currently intubated/ postoperative. Code status discussed with the daughter Luly and changed to full code at the mean time as the patient currently intubated post operative.
--- NOTE | 2024-04-02 20:00 | PTCARENOTE ---
Resumed care of pt this evening. Received pt intubated on vent, settings: 14/500/.40/+5. Pt is drowsy but is arousable to verbal and tactile stimuli. Pt is also able to nod and shake head to yes or no questions. Pt is able to move all 4 extremities.
Pt tolerating vent settings satting at 100% pulse ox. On auscultation pt lungs sound diminished TO. Pt is NSR on tele monitor, has no edema, and pedal pulses are present bilaterally via doppler. Pt is NPO per order. NGT in the right nare and is
connected to low intermittent suctioning. Pt's BS are hypoactive. Abdomen is round and tender. Ileostomy stoma is red and budded. Pt has corley in place draining jagjit colored urine. Pt has a midline abdominal surgical incision that is covered w/ an
aquacell dressing. Some small shadowing is noted on the aquacell dressing.
[2024-04-02] MEDS: CALCIUM GLUCONATE 100 IV (21:10)
[2024-04-02 21:13] LABS: B.E. -6.1 mmol/L; HCO3 18.8 mmol/L (21-28); PCO2 34 mmHg (35-48); PO2 178 mmHg (83-108); pH 7.35 (7.35-7.45)
[2024-04-02 21:25] LABS: PT 16.2 Sec (11.4-14.6)
[2024-04-02 21:26] LABS: APTT 35.5 Sec (23.4-35.0)
[2024-04-02] MEDS: SUBLIMAZE 50 MCG IV (22:46)
[2024-04-03] VITALS (67 sets, daily range): BP systolic 67–131; BP diastolic 45–97; BMI 20.1
[2024-04-03] MEDS: ZOSYN 50 IV ×4 (00:12→18:05)
[2024-04-03 01:04] LABS: Hematocrit 25.4 % (39.0-52.0); Hemoglobin 9.2 g/dL (13.0-18.0)
[2024-04-03] MEDS: SUBLIMAZE 50 MCG IV ×3 (02:34→05:38)
[2024-04-03 04:57] LABS: B.E. -3.8 mmol/L; HCO3 20.4 mmol/L (21-28); PCO2 33 mmHg (35-48); PO2 157 mmHg (83-108)
[2024-04-03 04:58] LABS: O2 Therapy 40%
[2024-04-03 05:24] LABS: Hematocrit 24.8 % (39.0-52.0); Hemoglobin 8.9 g/dL (13.0-18.0); Mean Corp Hgb Conc. 35.9 g/dL (33.0-37.0); Mean Corpuscular Hgb 31.7 pg (27.0-31.0); Mean Corpuscular Volume 88.3 fL (80.0-94.0); Platelet Count 191 10^3/uL (130-400); Red Blood Cell Count 2.81 10^6/uL (4.70-6.10); Red Cell Dist. Width 14.7 % (11.5-14.5); White Blood Cell Count 19.7 10^3/uL (4.8-10.8)
[2024-04-03 05:39] LABS: Blood Urea Nitrogen 28 mg/dl (9-20); Calcium 7.4 mg/dl (8.4-10.2); Carbon Dioxide 19 mmol/L (22-30); Chloride 105 mmol/L (98-107); Estimated Creatinine Clearance 45 ml/min; Glucose 163 mg/dl (70-99); Magnesium 1.7 mg/dl (1.6-2.3); Potassium 4.2 mmol/L (3.5-5.1); Sodium 138 mmol/L (135-145); eGFR > 60.00
[2024-04-03] MEDS: NORMOSOL-R/PLASMALYTE-A 1000 IV (05:47)
--- NOTE | 2024-04-03 06:00 | PTCARENOTE ---
Pt on levo gtt. Titrated up to 6 mcg/min per protocol.
--- NOTE | 2024-04-03 06:37 | W.PN.HOSP.TC ---
Addendum entered and electronically signed by Esperanza Bang MD 04/03/24 12:01:
Addendum
Echo findings d/w Hand Miter Operator
LV thrombus noted
will d /w surgery about AC
Will consult cardiology
End
Original Note:
Today's Communication/Plan
-
Continue to treat with IVF, IV Abx, Pressure support
Possible extubation
Pain control
Will follow
Assessment / Plan
Assessment / Plan
Physical Exam
General: No Apparent Distress and Other (frail appearing)
HEENT: PERRLA
Respiratory: Clear, Wheezes and Decreased Breath Sounds (right lung base)
Cardiac: S1/S2 and Regular Rhythm
GI: Soft and Non Tender
Musculoskeletal: No Edema
Skin: Warm and Dry; No Rash
Psych: Calm
Mr. 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
# Acute bowel perforation post colonoscopy
s/p exploratory laparotomy, abdominal colectomy with loop ileostomy by Dr Regalado on 04/02 for perforated cecum, intestinal malrotation, splenic flexure mass, small bowel adhesion
continue post op care with bowel rest until resuming function
Order IVF, replace electrolytes as appropriate, will follow blood work until stabilizing
C/W IV Zosyn
Appreciate colorectal Surgery help
# Shock
Hard to blame one reason, I think it is a combination of hypovolemic/ hemorrhagic / septic shock/ also sedative medicine can play a role
Will do Echocardiogram to know LVEF, Last echo in 2021 showed normal LVEF.
Treating with transfusion, IVF, IV Abx, and we controlled source of bleeding ( tumor is out)
Will wean off Levophed as possible.
#Acute blood loss anemia
He presented with bright red blood per rectum and blood loss during the surgery
Order blood transfusion. Goal to keep HGB around 7.5- 8 ( hx of cirrhosis)
S/p platelet transfusion, 2 units
HGB seems to stabilize
# Operative and post op intubation
Will try to extubate today, he is following commands, although he is on pressure support for now
# Hx Radiation Proctitis
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
Hx of Secondary esophageal varices
Order IV PPI
# Chronic thrombocytopenia
Plt count is good
# HANY
Creatinine on admission 1.4, coming down to 1.2 today
No flank pain
# Hx Metastatic Prostate CA
Primary oncologist Dr Blackwood and DR Quinteros
-patient on Lupron, Xgeva, Xtandi, holding for now
Updated Dr Blackwood.
Hx Alcoholic Liver cirrhosis
Hx of ascites s/p paracentesis
Thrombocytopenia
-held RURAL CARRIER ASSOCIATE lasix/spironolactone in setting of bleeding, NPO
# Hypocalcemia, replace
#GERD
- PPI
DVT PPx SCD
DNR - discussed on admission
Total time spent to see the patient on the floor, examine the patient, review data and lab results, discuss treatment plan with patient, nursing staff around 55 minutes
Anticipated Discharge: > 48 hours
Subjective/Interval History
-
Date of Service: April 03, 2024
Post op intubated
reports abd discomfort and Endotrac tube discomfort
Objective Data
-
Labs:
Laboratory Results
04/02/24 04/02/24 04/02/24
18:28 19:23 21:03
WBC 9.6 Cancelled
Hgb 8.5 L D Cancelled
Hct 24.5 L Cancelled
Plt Count 177 D Cancelled
PT 16.2 H
INR 1.30
APTT 35.5 H
HCO3 18.8 L
Sodium 139
Potassium 4.2
Chloride 108 H
Carbon Dioxide 17 L
BUN 25 H
Creatinine 0.9
Glucose 129 H
Calcium 6.7 L* D
04/03/24 04/03/24
00:56 04:46
WBC 19.7 H
Hgb 9.2 L 8.9 L
Hct 25.4 L 24.8 L
Plt Count 191
PT
INR
APTT
HCO3 20.4 L
Sodium 138
Potassium 4.2
Chloride 105
Carbon Dioxide 19 L
BUN 28 H
Creatinine 1.0
Glucose 163 H
Calcium 7.4 L
Vital Signs:
Vital Signs
Temp Pulse Resp BP Pulse Ox
97.6 F 100 19 99/59 100
04/03/24 03:18 04/03/24 06:00 04/03/24 06:00 04/03/24 06:00 04/03/24 06:00
I&O
04/01/24 04/02/24 04/03/24
06:59 06:59 06:59
Intake Total / 2010.
Output Total 680 / 680
Balance 1331.5 / 1331.5
[2024-04-03] MEDS: D5/0.9% SODIUM CHLORIDE 1000 IV ×2 (08:40→16:47)
[2024-04-03 08:44] LABS: Absolute Neutrophils -Man Diff 16.1 10^3/uL (1.4-6.5); Anisocytosis 1+; Band Neutrophils 23 % (0-3); Lymphocytes 3 % (20-51); Metamyelocytes 7 % (-); Monocytes 8 % (2-9); Normal RBC Morphology No; Platelets Checked Yes; Segmented Neutrophils 59 % (42-75)
[2024-04-03] MEDS: PROTONIX IV 40 MG IV (08:44)
[2024-04-03 08:45] LABS: Ovalocytes 1+; Total Cells Counted 100
[2024-04-03] MEDS: NSS (PRESERVATIVE FREE) 10 ML IV (08:45)
[2024-04-03] MEDS: FLUSH (NSS) 1 FLUSH IV ×2 (08:47→16:13)
--- NOTE | 2024-04-03 08:54 | W.PN.CRS1 ---
Today's Communication / Plan
-
extubate per upper marker
lovenox
continue ngt if extubated
wean levophed gtt
continue zosyn
Assessment/Plan
-
POD#1 1) exploratory laparotomy 2) abdominal colectomy with ileostomy
-Hgb 8.9 from 9.2. Likey from blood loss anemia (750ml loss in OR).
-Extubate per pulmonology. Currently on a spontaneous breathing trial.
-OOB with PT if extubated.
-Wound RN for stoma care. Continue stoma benjie until outpatient.
-Keep corley for I/O's today.
-Start Lovenox for DVT prophylaxis. TEDS/SCDS in place.
-If extubated, remain NPO on IVFS. Keep NGT if extubated.
-Pain control: on fentanyl gtt (due to intubation).
-Wean Levophed gtt as tolerated
-Continue IV Zosyn.
-OR pathology pending.
Subjective Data
Procedure
04/02/24- 1) exploratory laparotomy 2) abdominal colectomy with ileostomy
Subjective Data
Date of Service: April 03, 2024
Patient is intubated but awake. He is able to nod 'yes' or 'no'. When asked if he has pain, he says yes. He is motioning that he wants the ETT out.
Objective Data
-
Vital Signs
Temp Pulse Resp BP Pulse Ox
97.6 F 99 16 99/59 100
04/03/24 08:30 04/03/24 08:02 04/03/24 08:02 04/03/24 06:00 04/03/24 08:02
Intake & Output
04/02/24 04/03/24 04/04/24
06:59 06:59 06:59
Intake Total
Output Total 680 / 680
Balance 1331.5 / 1331.5
Intake:
IV fluids (Total) 196. /
Levo 161.5 / 161.5
Normosol-R/Plasmalyte-A 1,000 1800 / 1800
ml @ 150 mls/hr IV .[id number] SHEBA
Rx#:[id number]
IV piggybacks 50 / 50
Output:
Urine, Voided 680 / 680
Other:
Number of approximated MODERATE 2
amounts of urine
Number of unmeasured liquid
stools
Rectum 5
Lab Results
04/03/24 04:46
04/03/24 04:46
Physical Exam
-
General: No Acute Distress and AOx3
Abdomen: Soft, Non Distended, Tender (around incision) and Other (ostomy warm and pink with stoma benjie in place, no flatus or bowel movements in the bag)
Skin: Warm and Dry
--- NOTE | 2024-04-03 09:00 | PTCARENOTE ---
Rec'd pt at 0800 resting in bed. Dozing at intervals but easily awakens and is alert and appropriate. Soft wrist restraints on for pt safety but currently is cooperative. Admits to very slight abd soreness but mostly c/o throat pain. Explanations
given to pt. [place]. Nodding and gesturing appropriately. Skin is pale wm and dry. Respirs- rec'd pt intubated . #8 Ett 24 cm daniela. - changed to the center of the mouth. BS are sl decreased throughout. Pt was on AC settings overnight but at 0800
changed to CPAP 5/PS 5 wean and currently tolerating well with RR 12-13 and TV 380-520. Sats 98%. ABG sent at [address] in the 102-104 range. + pulses. as documented. No edema. L Radial A line is intact-site wnl. Zeroed and
recalibrated. Waveform as documented. Good CMS checks to distal extrem. Congruent with cuff BP. VS as documented. Rec'd pt on IV Levophed at 7 mcg with goal of MAP >65- currently at 7 mcg as MAP's tending to run 61-62. Abd is sl tender. No BS
auscultated. R nare salem NG at 55 cm - small amt of tannish drainage to low intermittent suction. Irrigated without diff. RLQ ileostomy with small amt of brownish drainage. Stoma is pink/budded- has red rubber tube within soma. Midline abd incision
with Aquacell dressing that has some shadowing of old drainage. Hicks intact for yellow urine. IV Levophed infusing via L wrist IV site along with IV fluids- changed to D5NS at 125 ml/hr. Capped ints intact RAC and R hand sites wnl. Turned and
repositioned. Mouth care given. Plan of care reviewed with pt. Call interiano in reach.
[2024-04-03 09:07] LABS: B.E. -3.1 mmol/L; HCO3 20.6 mmol/L (21-28); PCO2 31 mmHg (35-48); PO2 161 mmHg (83-108); pH 7.43 (7.35-7.45)
--- NOTE | 2024-04-03 10:00 | PTCARENOTE ---
Tolerating wean. Will update Dr. Cotto on ABG results. ECHO being done presently.
--- NOTE | 2024-04-03 10:00 | CARDSERVDEF ---
Echocardiogram with Definity completed after protocol screening completed. Allergies verified.
Patent IV site: __R AC___
IV site flushed with 0.9% NaCl pre and post administration.
Diluted bolus method utilized to enhance visualization of ventricular roth.
Total volume given: __2__ mL
Patient tolerated all procedures well without complications.
--- NOTE | 2024-04-03 10:32 | PTCARENOTE ---
Extubated at 1020 to 2l nc with sats of 98%. Initally on extubation coughed up a large amt of thick tannish secretions with old blood. States he was just frustrated that he couldn't talk with the tube in. Speech is clear. Restraints removed
[2024-04-03] MEDS: DILAUDID 0.25 MG IV ×3 (11:50→21:25)
--- NOTE | 2024-04-03 11:50 | PTCARENOTE ---
Tolerating 2L nc with sats of 98%, Medicated currently with Dilaudid 0.25 mg IV for c/o 5/10 abd pain. Complete CHG bath given. Mouth care given. Pt remains very oriented and asks questions. Abd dressing is unchanged. Remains on IV Levophed
currently at 8 mcg. Assessment unchanged otherwise. NG flushes without diff but no drainage. Urine outputs as documented.
--- NOTE | 2024-04-03 12:11 | W.PN.GI.CBS2 ---
Addendum entered and electronically signed by Osbaldo Whitehead MD 04/03/24 15:32:
I saw and examined the patient.
The MARKETING ROTATION ASSOCIATE or PA's note was reviewed and I agree with the note.
Comment:
This patient is a 4-year-old man who is status post perforation with a finding of a colon mass and a prior history of prostate cancer. Currently he is doing well. He is not intubated and has no acute complaints.
abd: bandage and ostomy
impression:
cirrhosis
colon mass
colonic perforation
plan:
continue antibiotics
await path
other management per surgery
Original Note:
Today's Communication / Plan
-
events of 04/02 as above
now in ICU s/p extubation and doing well -- still on pressor support
cont post -op per surgery, NGT/NPO etc
cont abx
wean pressors as tolerated
await path
trend labs-- repeat MELD in AM with hx cirrhosis MELD 11 prior to surgery
support given and updated Dr. Carreon -- known OP GI following
Assessment / Plan
-
Pt is 84yo presents with hx prostate CA with prior radiation with current therapy( Leuprolide, Xgeva, Xtandi) with mets, squamous cell CA, CKD, Ecoli sepsis/diverticulitis, AI, prior GI bleeding, prior noted AVM radiation proctitis, chronic
diarrhea with Imodium use, cirrhosis with grade I EV on EGD 2021, hx paracentesis several years ago, effusion with prior thoracentesis, humphries's with current admission to ER with rectal bleeding and increased stool frequency with use of Imodium
and need for depends. He has been recommended colonoscopy Dr. Carreon with prior abnormal CT 2021 with concern for soft tissue nodularity in splenic flexure. 04/02 s/p colon with partially obs mass unable to pass, post x ray with small amount
free air, s/p exp lap ileostomy for cecal perf, malrotation and splenic flex mass, SB adhesions
04/02 colonoscopy - large internal hemorrhoids, lax sphincter tone, large partially obstructing mass descending colon unable to reach past transverse colon diverticulosis
04/02 abd X ray-Findings suspicious for small volume free air.
04/02 s/p exp lap, colectomy with ileostomy, perforation of cecum, intestinal malrotation, splenic flexure mass with tattoo, SB adhesion at rectosigmoid Junction, oozing during surgery
) exploratory laparotomy 2) abdominal colectomy with ileostomy
-s/p colonoscopy for bleeding with concern for perforation with mass and exp lap with ileostomy
-rectal bleeding with chronic diarrhea prior to admission
-hx metastatic prostate CA to bone -- prior radiation current Leuprolide, Xgeva, Xtandi
-cirrhosis with hx grade I EV 2021, paracentesis 2021, no HE, AFP 1.23 12/2023
-anemia
-hx prior noted colonic angioectasia c/w radiation proctitis
-CT 2021 with 1.5 cm soft tissue nodule along splenic flexure adherent stool vs polyp
-thrombocytopenia
other medical problems:
-squamous cell CA
- hx GI bleed
-colon polyp
-humphries's
-Ecoli sepsis diverticulitis
-pleural effusion with prior thoracentesis
-Prior ETOH abuse quit 2-3 years ago
-GERD
-CKD
-aortic insufficiency
PLAN:
events of 04/02 as above
now in ICU s/p extubation and doing well -- still on pressor support
cont post -op per surgery, NGT/NPO etc
cont abx
wean pressors as tolerated
await path
trend labs-- repeat MELD in AM with hx cirrhosis MELD 11 prior to surgery
support given and updated Dr. Carreon -- known OP GI following
Subjective
Subjective
Date of Service: April 03, 2024
NPO, no stool in ileostomy, s/p extubation and remains awake and alert
Objective
Data Reviewed
Laboratory Data:
Laboratory Results
04/03/24 04:46
04/03/24 04:46
Laboratory Results
PT 16.2 Sec (11.4-14.6) H 04/02/24 21:03
INR 1.30 04/02/24 21:03
APTT 35.5 Sec (23.4-35.0) H 04/02/24 21:03
Magnesium 1.7 mg/dl (1.6-2.3) 04/03/24 04:46
Total Bilirubin 1.6 mg/dl (0.2-1.3) H 04/02/24 04:39
AST 34 U/L (17-59) 04/02/24 04:39
ALT 16 U/L (0-50) 04/02/24 04:39
Alkaline Phosphatase 27 U/L (38-126) L 04/02/24 04:39
Vital Signs and I&O:
Vital Signs
Temp Pulse Resp BP Pulse Ox
98.2 F 95 22 98/63 100
04/03/24 11:59 04/03/24 11:00 04/03/24 11:00 04/03/24 11:00 04/03/24 11:00
I&O
04/02/24 04/03/24 04/04/24
06:59 06:59 06:59
Intake Total 2010.5 / 2184.0 673.8 / 673.8
Output Total 680 / 680 225 / 225
Balance 1331.5 / 1504.0 448.8 / 448.8
Physical Exam
Physical Exam
HEENT: Anicteric and Moist mucous membranes
Cardiology: Normal Sinus Rhythm
Pulmonary: Clear
GI: Soft, Non Distended and Tender (minimal -- mid abdominal incision intact with dressing, no drainage in ileostomy)
Extremities: No Edema
Neuro: Non Focal
--- NOTE | 2024-04-03 13:00 | PTCARENOTE ---
Pain 3/ post Dilaudid. Capped int dc'd from RAC due to leaking. Getting 1800 on IS. Levophed at 9 mcg to maintain MAP's. [place] MAP's tend to run a little lower than the cuff MAP's- will update Dr. Cotto. Pt states he normally has a somewhat low
bP.
--- NOTE | 2024-04-03 13:12 | WOUNDNOTE ---
[facility] RN NOTE: Reviewed chart and met with patient. Patient is s/p exploratory laparotomy and abdominal colectomy with ileostomy. Patient is awake and alert and asking appropriate questions. Midline dressing intact and stoma is light pink and slightly
budded. Stoma supplies ordered to room and booklet of information left for patient. Patient gave permission to order [employer] Secure Start kit to home. KIRK Rubalcava given update. Will continue to follow with patient.
--- NOTE | 2024-04-03 13:19 | CM ---
Addendum entered by Jason Benoit 04/03/24 16:01:
Eliquis 5mg BID walls checked:
30 day supplies - $120.00 co-pay
90 day supplies - $249.00 co-pay
30 day free coupon provided.
Original Note:
CM following re: discharge planning.
Discussed in rounds, reviewed pt's chart, met with pt. Per rounds meeting, pt intubated yesterday s/p operation, pt extubated this morning, remains NPO, NGT in place, continue supportive care.
Pt reports she lives with spouse at [facility], has 3 supportive children. 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 No DME, VN or SNF history.
PT and OT will evaluate the pt when clinically appropriate to determine a level of care at discharge.
D/c plan: pt possibly will need SNF level of care at [facility]. PT/OT evaluations pending.
CM will follow with discharge plan updates as hospitalization progresses
--- NOTE | 2024-04-03 14:00 | PTCARENOTE ---
INt removed from R wrist due to leaking and infiltration at the site <1inch. Family in to see pt and updated. Per Dr. Kirti bland to use cuff BP's for MAP's
[2024-04-03] MEDS: LEVOPHED 250 IV ×2 (14:02→21:24)
--- NOTE | 2024-04-03 14:30 | PTCARENOTE ---
Weaned to RA at 1430 and currently sats are 97%
--- NOTE | 2024-04-03 14:49 | CON.CAR ---
Addendum entered and electronically signed by Tanmay Man DO 04/03/24 18:13:
I saw and examined the patient.
The Public Events Facilities Rental Manager's note was reviewed and I agree with the note.
Comment:
Patient is a 84M with history of met prostate CA, cirrhosis, GERD, HTN, Paulino's, prior ETOH use who underwent colonoscopy 04/02 found to have partial obstructing mass of desc colon. Patient found to have evidence of colonic perforation and
underwent surgery (exlap colectomy, ileostomy). Post-operatively, patient noted to have hypotension, EF 40% with global hypokinesis and concern for LV thrombus. Patient reports chronic SOB but denies cp, palpitations, PND, orthopnea, edema,
distention or weakness. Patient without prior dumper bulk system but wishes to follow with our office, specifically Dr King whom his follows with as well.
Patient will likely need further evaluation for etiology of CM. For now, conservative therapy. When able and no longer hypotensive, patient to benefit from initiation of GDMT in staged fashion.
With concern for LV thrombus, patient to start OAC when able from surgical perspective. Eventual repeat TTE as OP for reassessment of LV function and thrombus.
Monitor on telemetry
Further recommendations to follow clinical course
Original Note:
Consultation
Consultation Request
Date/Time Consultation Requested: 04/03/2024
Date/Time Consultation Performed: 04/03/2024 at 1445
Requesting Provider: Dr. Bang
Performing Provider: Sofie Conley PA-C for Dr. Man
Reason for Consultation: LV thrombus on echo, reduced EF
Medical History
-
History of Present Illness:
HPI: Michael is an 84 year old male with PMH of metastatic prostate cancer, cirrhosis, GERD, HTN, Paulino's esophagus, and prior ETOH abuse who presented to [facility] for evaluation of rectal bleeding. He underwent colonoscopy 04/02 for evaluation and was
noted to have a partially obstructing mass in the descending colon. Post-procedurally, he was noted to have abdominal pain that continued to worsen and abdominal xray showed evidence of free air. He ultimately was seen by colorectal surgery and
underwent exploratory laparotomy with colectomy and ileostomy. Given shock and persistent hypotension, echo was ordered to assess EF. Echo 04/03 showed EF 40% with small, 1.0 cm LV thrombus. Cardiology consulted for evaluation. Patient reports he
has had chronic SOB for 5 years that has been unchanged. He denies any chest pain, dizziness, lightheadedness, or SOB. Currently only complaints are abdominal discomfort related to recent surgery as well as some soreness in his mouth, likely from
intubation.
PMH:
Metastatic prostate cancer
h/o XRT, on lupron, Xgeva, Xtandi
h/o cirrhosis
GERD
Paulino's Esophagus
HTN
h/o ETOH abuse
Past Medical History
Past Medical History: Other (In HPI)
Past Surgical History: Other (colectomy w/ ileostomy 04/02/2024, hernia repair 05/2022, cataract surgery, skin cancer excision)
Social History
Tobacco: Non-Smoker
Alcohol: Former
Drug: None
Personal:
Living: With Family
Employment: Retired
Family History
Family History: Cancer
Allergies / Home Medications
Allergy/AdvReac Type Severity Reaction Status Date / Time
aspirin AdvReac bleeding Verified 04/01/24 09:55
ciprofloxacin [From Cipro] AdvReac anxiety, Verified 04/01/24 09:55
trembling,
palpatations
�Medication �Instructions �Recorded �Confirmed �Type
denosumab 120 mg/1.7 mL (70 mg/mL) 120 mg INJ [id number] prostate cancer 11/24/20 04/01/24 History
subcutaneous solution (Xgeva)
enzalutamide 40 mg capsule (Xtandi) 120 mg PO DAILY prostate cancer 11/24/20 04/01/24 History
loperamide 2 mg capsule 2 mg PO Q4HPRN PRN diarrhea 11/24/20 04/01/24 History
omeprazole 20 mg capsule,delayed 20 mg PO DAILY Gastrointestinal 11/24/20 04/01/24 History
release issue
vitamins A,C,U-nzep-ddraax 4,296 1 cap PO DAILY Supplement 11/24/20 04/01/24 History
mcg-226 mg-90 mg capsule
(PreserVision AREDS)
calcium 600 mg (as 1 cap PO DAILY Supplement 04/01/24 04/01/24 History
carbonate)-vitamin D3 5 mcg (200
unit) capsule (Calcium 600 + D(3))
diphenhydramine 25 1 tab PO HSPRN PRN sleep 04/01/24 04/01/24 History
mg-acetaminophen 500 mg tablet
(Tylenol PM Extra Strength)
furosemide 20 mg tablet (Lasix) 20 mg PO DAILY Fluid 04/01/24 04/01/24 History
Retention/Swelling
leuprolide 1 mg/0.2 mL 7.5 mg SC [id number] prostate cancer 04/01/24 04/01/24 History
subcutaneous kit
spironolactone 50 mg tablet 50 mg PO DAILY Blood Pressure 04/01/24 04/01/24 History
vitamin B complex 1 tab PO DAILY supplement 04/01/24 04/01/24 History
Review of Systems
-
History Source: Patient
All other systems: Negative unless noted
Physical Exam
Vital Signs
Temp Pulse Resp BP Pulse Ox
98.2 F 95 22 98/63 98
04/03/24 11:59 04/03/24 11:00 04/03/24 11:00 04/03/24 11:00 04/03/24 14:00
Lab Results
04/03/24 04:46
04/03/24 04:46
Physical Exam
General: Well Developed, Well Nourished and No Apparent Distress
HEENT: Normocephalic, Anicteric and Moist Mucous Membranes
Respiratory: Clear and Non Labored Respirations
Cardiac: S1/S2 and Regular Rhythm
Musculoskeletal: No Clubbing, No Cyanosis and No Edema
Skin: Warm and Dry
Neuro: AO x 3 and Nonfocal/Grossly Intact
Psych: Calm
Impression / Plan
-
PCP: Dr. Patiño
Resource Specialist Teacher: None, follows w/ Dr. King
Impression:
Presented with rectal bleeding
Anemia
Cardiomyopathy, EF 40% by echo 04/03
LV thrombus
Colonic mass, perforated cecum s/p colectomy and ileostomy
Metastatic prostate cancer
h/o XRT, on lupron, Xgeva, Xtandi
h/o cirrhosis
GERD
Paulino's Esophagus
HTN
h/o ETOH abuse
Echo 01/09/2022: EF 60 to 65%, trace MR
Echo 04/03/2024: EF 40%, akinesis of the distal myocardial segments with apical dyskinesis with aneurysmal formation with small LV thrombus present at the apex, approximately 1.0 cm, trivial anterior pericardial effusion, mildly dilated aortic root,
measuring 4.4 cm at sinus of Valsalva
Plan:
-Presented with rectal bleeding. Found to have partially obstructing mass on colonoscopy.
-Severe pain post procedure, xray findings concerning for free air. Found to have perforation of the cecum during exploratory laparotomy, and underwent colectomy with ileostomy 04/02/2024.
-Ongoing hypotension and shock, on levophed. Echo checked to assess EF and found to have LV thrombus with EF 40%
-Would recommend starting AC for LV thrombus once safe from a surgical standpoint, likely 48h post op.
-Hgb 8.9 04/03. Follow closely. He has received 1 unit PRBCs, 2 units platelets this admission.
-Will have CM assess the cost of Eliquis 5mg BID. Follow up echo as OP to reassess.
-EF newly reduced, down to 40% by echo 04/03. On spironolactone as OP due to cirrhosis, on hold currently due to shock, hypotension.
-Ideally once BP improves and off pressors, would start beta louise and uptitrate GDMT as able.
-EKG reviewed, SR with 1st degree AV block.
-Continue post op care
HPI: Michael is an 84 year old male with PMH of metastatic prostate cancer, cirrhosis, GERD, HTN, Paulino's esophagus, and prior ETOH abuse who presented to [facility] for evaluation of rectal bleeding. He underwent colonoscopy 04/02 for evaluation and was
noted to have a partially obstructing mass in the descending colon. Post-procedurally, he was noted to have abdominal pain that continued to worsen and abdominal xray showed evidence of free air. He ultimately was seen by colorectal surgery and
underwent exploratory laparotomy and was found to have perforation of the cecum and underwent colectomy and ileostomy. Given shock and persistent hypotension, echo was ordered to assess EF. Echo 04/03 showed EF 40% with small, 1.0 cm LV thrombus.
Cardiology consulted for evaluation. Patient reports he has had chronic SOB for 5 years that has been unchanged. He denies any chest pain, dizziness, lightheadedness, or SOB. Currently only complaints are abdominal discomfort related to recent
surgery as well as some soreness in his mouth, likely from intubation.
Data Reviewed
-
EKG: Tracing Personally Visualized and interpreted
Radiology: Report Reviewed by me
Medical Tests (Nuc Med, Echo etc): Report Reviewed by me
Labs: Labs Reviewed by me
Old Records: Reviewed
--- NOTE | 2024-04-03 14:55 | PTCARENOTE ---
WOC RN in to speak with pt and family
--- NOTE | 2024-04-03 15:07 | PN.CDI ---
Addendum entered and electronically signed by Esperanza Bang MD 04/03/24 15:31:
cachexia
Original Note:
CDI
- -
CDI:
Physician Documentation Request
Admit Date: 04/02/24 09:26
Dear Doctor Merritt
Please review the following and provide your response in the progress notes.
Clinical Indicators:
Height: 5 ft 10 in
Weight:132
BMI:18.9
Other Clinical Notes:' (frail appearing)'
If possible, please provide an associated diagnosis related to the abnormal BMI, such as:
BMI < or = to 19
Underweight
Cachectic
- Other
Use of terms such as suspected, likely, concern for, or probable (associated with a specific diagnosis that is being evaluated, monitored, or treated as if it exists) are acceptable and can be coded in the inpatient setting, when documented at the
time of discharge.
Thank you,
Sharron Amaral RN
CDI Specialist
[place] [facility]
Please use your independent medical judgment in providing your response.
--- NOTE | 2024-04-03 15:09 | PN.CDI ---
Addendum entered and electronically signed by Esperanza Bang MD 04/03/24 15:31:
Pancytopenia
Original Note:
CDI
- -
CDI:
Physician Documentation Request
Admit Date: 04/02/24 09:26
Dear Doctor Merritt,
Please review the following and provide your response in the progress notes.
Clinical Indicators:
Pt admitted with rectal bleeding/ ABLA/ Chronic Thrombocytopenia
Trended labs below
Laboratory Tests
04/01/24 04/02/24
11:13 04:39
WBC 3.5 L 3.0 L
Hgb 10.0 L 9.2 L
Hct 28.8 L 26.4 L
Plt Count 87 L 78 L
Please provide a diagnosis for the above lab findings:
Pancytopenia
ABLA/Thrombocytopenia only
Other
Use of terms such as suspected, likely, concern for, or probable (associated with a specific diagnosis that is being evaluated, monitored, or treated as if it exists) are acceptable and can be coded in the inpatient setting, when documented at the
time of discharge.
Thank you,
Sharron Amaral RN
CDI Specialist
[place] [facility]
Please use your independent medical judgment in providing your response.
--- NOTE | 2024-04-03 17:00 | PTCARENOTE ---
Family in to visit and updated. Pt resting. Overall assessment is unchanged. Remains on RA with sats of 97%. VS as documented. Ok given to use cuff BP if needed for MAP's- Levophed weaned back down to 8 mcg at 1500 and Bp was ok then Medicated with
Dilaudid 0.25 mg IV at 1615 and Bp at 1634 dipped to the 70's via danna and 67 syst via cuff with MAP's in the 50's. Levophed put back up to 9 mcg and with some stimulation BP back up. as documented. Currently MAP 68 via cuff. Infusing via L wrist
IV site. New #22 capped int placed R wrist with excellent blood return. ABd dressing unchanged. ABd with very few hypoactive BS. NG draining small amt of tannish drainage. Hicks draining yellow urine. Ileostomy stoma is pink. Small amt of brownish
drainage. Repostioned. Call interiano in reach. Mouth care given.
--- NOTE | 2024-04-03 17:00 | PTCARENOTE ---
Family in to visit and updated. Pt resting. Overall assessment is unchanged. Remains on RA with sats of 97%. VS as documented. Ok given to use cuff BP if needed for MAP's- Levophed weaned back down to 8 mcg at 1500 and Bp was ok then Medicated with
Dilaudid 0.25 mg IV at 1615 and Bp at 1634 dipped to the 70's via danna and 67 syst via cuff with MAP's in the 50's. Levophed put back up to 9 mcg and with some stimulation BP back up. as documented. Currently MAP 68 via cuff. Infusing via L wrist
IV site. New #22 capped int placed R wrist with excellent blood return. ABd dressing unchanged. ABd with very few hypoactive BS. NG draining small amt of tannish drainage. Hicks draining yellow urine. Ileostomy stoma is pink. Small amt of bloody
brownish drainage. Repostioned. Call interiano in reach. Mouth care given.
[2024-04-03] MEDS: LOVENOX 40 MG SC (18:05)
--- NOTE | 2024-04-03 18:26 | PTCARENOTE ---
Resting, states pain med helped him and feels better. VS as documented. Remains on 9 mcg of Levophed. No other changes.
--- NOTE | 2024-04-03 18:50 | PTCARENOTE ---
Dr. Regalado in and updated.
--- NOTE | 2024-04-03 20:00 | PTCARENOTE ---
Pt Aox3, PERRY, ST on monitor HR 105-112, RA, c/o 5/10 lower abdominal pain at incision site. PRN mediation. Remains on Levophed 9mcg/33.8 mls. Left Carbon maintaining MAP 65. D5NS infusing @ 125ml/hr. Midline incision with Aquacel dressing with old
drainage. Scant jagjit output from colostomy. NGT to LIS clear brown output, irrigated with tap water. Hicks in place adequate urine output. Pt assisted with turn to sleep on right side. Pt able to make small adjustments to positioning.
[2024-04-04] VITALS (35 sets, daily range): BP systolic 85–166; BP diastolic 44–118; BMI 21.0
--- NOTE | 2024-04-04 00:30 | PTCARENOTE ---
Levophed titrated based on danna MAP. PRN pain meds, otherwise assessment unchanged.
[2024-04-04] MEDS: D5/0.9% SODIUM CHLORIDE 1000 IV ×3 (00:36→19:59)
[2024-04-04] MEDS: ZOSYN 50 IV ×5 (00:36→23:50)
[2024-04-04] MEDS: LEVOPHED 250 IV ×2 (02:07→06:30)
[2024-04-04] MEDS: DILAUDID 0.25 MG IV ×5 (02:07→21:13)
[2024-04-04 04:32] LABS: Hemoglobin 7.4 g/dL (13.0-18.0); Mean Corp Hgb Conc. 36.5 g/dL (33.0-37.0); Mean Corpuscular Hgb 32.7 pg (27.0-31.0); Mean Corpuscular Volume 89.8 fL (80.0-94.0); Mean Platelet Volume 9.7 fL (7.4-10.4); Platelet Count 118 10^3/uL (130-400); Red Blood Cell Count 2.26 10^6/uL (4.70-6.10); Red Cell Dist. Width 14.7 % (11.5-14.5); White Blood Cell Count 14.3 10^3/uL (4.8-10.8)
[2024-04-04 04:33] LABS: Hematocrit 21.1 % (39.0-52.0)
[2024-04-04 04:34] LABS: INR 1.43; PT 17.3 Sec (11.4-14.6)
[2024-04-04 04:50] LABS: ALT (SGPT) 15 U/L (0-50); AST (SGOT) 35 U/L (17-59); Albumin 2.1 g/dl (3.5-5.0); Alkaline Phosphatase < 20 U/L (38-126); Blood Urea Nitrogen 26 mg/dl (9-20); Calcium 6.8 mg/dl (8.4-10.2); Carbon Dioxide 21 mmol/L (22-30); Chloride 108 mmol/L (98-107); Estimated Creatinine Clearance 43 ml/min; Glucose 186 mg/dl (70-99); Potassium 3.3 mmol/L (3.5-5.1); Sodium 136 mmol/L (135-145); Total Bilirubin 2.9 mg/dl (0.2-1.3); Total Protein 4.3 g/dl (6.3-8.2); eGFR > 60.00
[2024-04-04 05:53] LABS: Magnesium 1.8 mg/dl (1.6-2.3)
[2024-04-04] MEDS: CALCIUM GLUCONATE 130 MG IV (06:04)
[2024-04-04] MEDS: KCL 270 MEQ IV (06:29)
--- NOTE | 2024-04-04 06:45 | W.PN.HOSP.TC ---
Today's Communication/Plan
-
Replace calcium and potassium, recheck bmp
Goal to start Systemic AC once safe. Likely 04/05
wean off Levophed if possible
IV Abx
Assessment / Plan
Assessment / Plan
Physical Exam
General: No Apparent Distress and Other (frail appearing)
HEENT: PERRLA, NG
Respiratory: Clear, Wheezes and Decreased Breath Sounds
Cardiac: S1/S2 and Regular Rhythm
GI: Soft and Non Tender, + ileostomy
Musculoskeletal: No Edema
Skin: Warm and Dry; No Rash
Psych: Calm
Mr. 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
# Acute bowel perforation post colonoscopy
s/p exploratory laparotomy, abdominal colectomy with loop ileostomy by Dr Regalado on 04/02 for perforated cecum, intestinal malrotation, splenic flexure mass, small bowel adhesion
continue post op care with bowel rest until resuming function
Ordered IVF, replace electrolytes as appropriate, will follow blood work until stabilizing
C/W IV Zosyn
NG on suction,
Appreciate colorectal Surgery help
# LV Thrombus
Possible chronic in LV
Goal to start Systemic AC once safe. Likely 04/05
# Shock
Hard to blame one reason, I think it is a combination of hypovolemic/ hemorrhagic / septic shock/
Echo showed LVEF 40%, Last echo in 2021 showed normal LVEF.
Treating with transfusion, Gentle IVF, IV Abx, and we controlled source of bleeding ( tumor is out)
Will wean off Levophed as possible.
#Acute blood loss anemia
He presented with bright red blood per rectum and blood loss during the surgery
Order blood transfusion for today, total 1 unit RBCs, 2 units platelets
Goal to keep HGB around 8 ( hx of cirrhosis)
# Operative and post op intubation
Extubated on 04/03
# Hx Radiation Proctitis
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
Hx of Secondary esophageal varices
Ordered IV PPI
# Chronic thrombocytopenia/ pancytopenia
Plt count is good
WBC is up to 14.3 post shock
# HANY
Creatinine on admission 1.4, coming down to 1.2 today
No flank pain
# Hx Metastatic Prostate CA
Primary oncologist Dr Blackwood and DR Quinteros
-patient on Lupron, Xgeva, Xtandi, holding for now
Updated Dr Blackwood.
Hx Alcoholic Liver cirrhosis
Hx of ascites s/p paracentesis
Thrombocytopenia
-held SCHOOL AIDE lasix/spironolactone in setting of bleeding, NPO
# Hypokalemia, replace
# Hypocalcemia, replace
#GERD
- PPI
DVT PPx SCD
DNR - discussed on admission
Total time spent to see the patient on the floor, examine the patient, review data and lab results, discuss treatment plan with patient and family, nursing staff around 55 minutes
Anticipated Discharge: > 48 hours
Subjective/Interval History
-
Date of Service: April 04, 2024
No fevers
Still on Levophed
Objective Data
-
Labs:
Laboratory Results
04/04/24 04/04/24
04:13 12:00
WBC 14.3 H
Hgb 7.4 L
Hct 21.1 L
Plt Count 118 L D
PT 17.3 H
INR 1.43
Sodium 136 Pending
Potassium 3.3 L Pending
Chloride 108 H Pending
Carbon Dioxide 21 L Pending
BUN 26 H Pending
Creatinine 1.1 Pending
Glucose 186 H Pending
Calcium 6.8 L* Pending
Total Bilirubin 2.9 H D
AST 35
ALT 15
Alkaline Phosphatase < 20 L
Vital Signs:
Vital Signs
Temp Pulse Resp BP Pulse Ox
98.6 F 106 26 116/64 91
04/03/24 23:45 04/04/24 04:40 04/04/24 04:40 04/04/24 04:30 04/04/24 04:40
I&O
04/02/24 04/03/24 04/04/24
06:59 06:59 06:59
Intake Total 2011.5 / 2184.0 4328.1 / 4328.1
Output Total 680 / 680 1485 / 1485
Balance 1331.5 / 1504.0 2843.1 / 2843.1
--- NOTE | 2024-04-04 07:32 | W.PN.INTV ---
Today's Communication / Plan
Recommendations
Transfuse
Wean norepinephrine
Tolerated extubation
Monitor throat pain-likely related to nasogastric tube and ET tube
Norepinephrine wean
If able to be weaned off norepinephrine then could be downgraded to telemetry-call pulmonary if respiratory issues arise
Assessment
-
84-year-old male with a history of stage IV prostate cancer with bone mets, hyperlipidemia, depression, radiation proctitis, cirrhosis and Paulino's esophagus who presented with significant diarrhea for several months and underwent colonoscopy noted
to have a large partially obstructing mass descending colon noted to have perforation and went to the OR-oil pipe inspector helper consulted for postoperative critical care management 04/02/2024.
Colonic mass status post colonoscopy/suspected perforation
Emergent OR 04/02/2024-
Uvywqo-uhcehaatzr-szecfnzopq 10.0
Leukopenia-WBC 3.0
Thrombocytopenia-platelets 78
Mild hyperglycemia
HANY-improved
Elevated total bilirubin
Nodular opacifications posterior lung funes measuring up to 1.2 cm on chest x-ray 11/2023
Conditions present prior to admission:
Prostate cancer stage IV with bony mets status post radiation on Lupron/Xgeva/Xtandi.
Radiation proctitis.
Squamous cell cancer skin.
Hyperlipidemia.
Depression.
Aortic insufficiency.
AVM.
Cirrhosis-former drinker
Former smoker
COPD
Right pleural effusion--1700 mL transudate 09/2023
Paulino's esophagus.
Cholelithiasis
Tonsillectomy.
Plan
Respiratory status improved-tolerated extubation-still critical on pressors
Wean FiO2
Aspiration precautions
Incentive spirometry encouraged
Nebulizers if needed-likely history of COPD-currently not bronchospastic
Surgery following-correspondence reviewed
Status post OR
Nasogastric tube per surgery
Wound nurse for stoma
Gastroenterology following
Colonoscopy noted-biopsy pending as well as operative pathology
Follow hemoglobin
Transfuse as needed-will receive additional unit PRBC today
Monitor thrombocytopenia-again transfuse as needed
Resume systemic anticoagulation when safe-likely 04/05/2024
Intravenous fluids
Monitor renal function
Norepinephrine wean
If throat pain persist-suspect related to nasogastric tube and endotracheal tube then consider ENT evaluation
DVT prophylaxis
GI prophylaxis
Nutrition per surgery and gastroenterology
Early mobilization
If able to be weaned off norepinephrine then transfer out of ICU-call pulmonary if respiratory issues arise
Most recent chest x-ray with 3 nodular opacifications 11/2023-CT chest recommended, repeat chest x-ray this admission reviewed-outpatient pulmonary [id number] has COPD as well
Critical care statement: A total of 40 minutes of critical care time was provided for this patient today. This includes management of unstable vital signs, evaluation of the patient at bedside, reviewing the patient's pertinent medical records
including radiographs, microbiology, laboratory evaluations, and discussion with primary team, consultants, pharmacy, nutrition, physical therapy, case management, charge nurse, critical care nursing, and respiratory therapy.
Diagnostic data:
Chest x-ray-01/04/2022-new pleural-based mass versus right hemidiaphragm eventration versus loculated pleural effusion, COPD changes, osteopenia, mild osteoblastic metastatic disease
Chest x-ray 12/05/2023-small right pleural effusion, 3 nodular opacifications posterior lung funes measuring up to 1.2 cm, repeat CT chest recommended
CT chest 01/08/2022-large volume ascites, suspicious for cirrhosis, diverticulosis, cholelithiasis, moderate right and small left pleural effusion, no pulmonary emboli, no hilar or mediastinal mass or enlarged adenopathy
Thoracentesis 09/23/23-successful 1700 mL clear fluid removal from the right
Echocardiogram 01/09/2022-EF 60-65%, no severe valvular disease
Echocardiogram 04/03/2024: EF 40%, akinesis of the distal myocardial segments with apical dyskinesis with aneurysmal formation with small LV thrombus present at the apex, approximately 1.0 cm, trivial anterior pericardial effusion, mildly dilated
aortic root, measuring 4.4 cm at sinus of Valsalva
Subjective Dataa
Subjective Data
Date of Service:
Date of Service: April 04, 2024
Chief Complaint: Tool And Die Repair Follow Up, Pulmonary Follow Up and Vent Management Follow Up
Subjective:
Tolerated extubation, complains of a sore throat, no complaints of shortness of breath, abdominal pain controlled,
Review of Systems
General: Other (Per HPI)
Objective Data
Data Reviewed
Vital Signs / I&O / Oxygen:
Vital Signs
Temp Pulse Resp BP Pulse Ox
99.9 F 106 26 116/64 91
04/04/24 07:00 04/04/24 04:40 04/04/24 04:40 04/04/24 04:30 04/04/24 04:40
Intake and Output
04/03/24 04/04/24 04/05/24
06:59 06:59 06:59
Intake Total 2011.5 / 2184.0 4328.1 / 4328.1
Output Total 680 / 680 1485 / 1485
Balance 1331.5 / 1504.0 2843.1 / 2843.1
SaO2 [CPAP/PSV] 98
SaO2 [A/C] 100
SaO2 91
Nasal Cannula flow liters per 1
minute
Physical Exam
General: Respiratory Distress (n) and Comfortable
HEENT: Normocephalic, Anicteric and Moist Mucous Membranes
Cardiovascular: Regular Rhythm
Respiratory: Wheeze (n), Crackles (n), Rhonchi (n), Non-Labored Respirations, Accessory Resp Muscle Use (n) and Stridor (n)
GI: Soft, Distended and Tender
Neurology: Awake, Alert and No Motor Deficits
Skin: Warm, Good Color, Cyanosis (n), Jaundice (n) and Rash (n)
Labs/Micro/Reports
Lab Data
04/04/24 04:13
Laboratory Results
04/03/24 04/04/24
08:57 04:13
PT 17.3 H
INR 1.43
pH 7.43
pCO2 31 L
pO2 161 H
HCO3 20.6 L
O2 Delivery Level
--- NOTE | 2024-04-04 07:58 | W.PN.CARDCBS ---
Today's Communication / Plan
-
Wean vasopressors as tolerated; would initiate BB therapy first when able
Hbg downtrending; may require further transfusion; given thrombus, start OAC when safely able
Impression / Plan
-
PCP: Dr. Patiño
Pulp Grinder: None, follows w/ Dr. King
Impression:
Presented with rectal bleeding
Anemia, worsening
- Hbg 8.9 04/03 now 7.4 04/04
Cardiomyopathy, EF 40% by echo 04/03
LV thrombus
Colonic mass, perforated cecum s/p colectomy and ileostomy
Metastatic prostate cancer
h/o XRT, on lupron, Xgeva, Xtandi
h/o cirrhosis
GERD
Paulino's Esophagus
HTN
h/o ETOH abuse
Echo 01/09/2022: EF 60 to 65%, trace MR
Echo 04/03/2024: EF 40%, akinesis of the distal myocardial segments with apical dyskinesis with aneurysmal formation with small LV thrombus present at the apex, approximately 1.0 cm, trivial anterior pericardial effusion, mildly dilated aortic root,
measuring 4.4 cm at sinus of Valsalva
Plan:
-Presented with rectal bleeding. Found to have partially obstructing mass on colonoscopy.
-Severe pain post procedure, xray findings concerning for free air. Found to have perforation of the cecum during exploratory laparotomy, and underwent colectomy with ileostomy 04/02/2024.
-Ongoing hypotension and shock, on levophed. Echo checked to assess EF and found to have LV thrombus with EF 40%
-Would recommend starting AC for LV thrombus once safe from a surgical standpoint, likely 48h post op.
-Hgb 8.9 04/03. Follow closely. He has received 1 unit PRBCs, 2 units platelets this admission.; may require further transfusion, defer to surgical service
-Will have CM assess the cost of Eliquis 5mg BID. Follow up echo as OP to reassess.
-EF newly reduced, down to 40% by echo 04/03. On spironolactone as OP due to cirrhosis, on hold currently due to shock, hypotension.
-Ideally once BP improves and off pressors, would start beta louise and initiate GDMT as able.
-EKG reviewed, SR with 1st degree AV block. tele SR/ST
-Continue post op care
HPI: Michael is an 84 year old male with PMH of metastatic prostate cancer, cirrhosis, GERD, HTN, Paulino's esophagus, and prior ETOH abuse who presented to [facility] for evaluation of rectal bleeding. He underwent colonoscopy 04/02 for evaluation and was
noted to have a partially obstructing mass in the descending colon. Post-procedurally, he was noted to have abdominal pain that continued to worsen and abdominal xray showed evidence of free air. He ultimately was seen by colorectal surgery and
underwent exploratory laparotomy and was found to have perforation of the cecum and underwent colectomy and ileostomy. Given shock and persistent hypotension, echo was ordered to assess EF. Echo 04/03 showed EF 40% with small, 1.0 cm LV thrombus.
Cardiology consulted for evaluation. Patient reports he has had chronic SOB for 5 years that has been unchanged. He denies any chest pain, dizziness, lightheadedness, or SOB. Currently only complaints are abdominal discomfort related to recent
surgery as well as some soreness in his mouth, likely from intubation.
Progress Note - Pulp Grinder
Subjective
Date of Service: April 04, 2024
Patient seen and examined this morning. No acute events overnight. Patient reporting abdominal pain. Denies cp, sob, palpitations, or weakness. Remains on levophed for BP support. Tele SR/ST. Hbg 7.4 from 8.9.
Objective
Labs:
04/04/24 04:13
Labs
Hgb 7.4 g/dL (13.0-18.0) L 04/04/24 04:13
Hct 21.1 % (39.0-52.0) L 04/04/24 04:13
Plt Count 118 10^3/uL (130-400) L D 04/04/24 04:13
PT 17.3 Sec (11.4-14.6) H 04/04/24 04:13
INR 1.43 04/04/24 04:13
APTT 35.5 Sec (23.4-35.0) H 04/02/24 21:03
Sodium 136 mmol/L (135-145) 04/04/24 04:13
Potassium 3.3 mmol/L (3.5-5.1) L 04/04/24 04:13
BUN 26 mg/dl (9-20) H 04/04/24 04:13
Creatinine 1.1 mg/dL (0.7-1.3) 04/04/24 04:13
Glucose 186 mg/dl (70-99) H 04/04/24 04:13
Vital Signs and I&O:
Vital Signs
Temp Pulse Resp BP Pulse Ox
99.9 F 106 26 116/64 91
04/04/24 07:00 04/04/24 04:40 04/04/24 04:40 04/04/24 04:30 04/04/24 04:40
Vital Signs
Temp Pulse Resp BP Pulse Ox
99.9 F 106 26 116/64 91
04/04/24 07:00 04/04/24 04:40 04/04/24 04:40 04/04/24 04:30 04/04/24 04:40
Intake & Output
04/02/24 04/03/24 04/04/24 04/05/24
06:59 06:59 06:59 06:59
Intake Total 2010.5 / 2184.0 4328.1 / 4328.1
Output Total 680 / 680 1485 / 1485
Balance 1331.5 / 1504.0 2843.1 / 2843.1
Physical Exam
Physical Exam
GENERAL: no acute distress, cacectic
EYE: sclera anicteric
NECK: Supple, no JVD
ENT: normal nose, moist mucosal membranes; NGT in place
CARDIAC: Regular rate and rhythm, +S1/S2, no murmur, rubs, or gallops
CHEST/PULMONARY: Normal effort, clear breath sounds; distant
ABDOMEN: hypoactive sounds, tender to palpation
NEUROLOGICAL: Alert and oriented x3
SKIN: Warm and dry, no rash
PSYCH: Normal and appropriate interaction.
[2024-04-04] MEDS: PROTONIX IV 40 MG IV (08:17)
[2024-04-04] MEDS: NSS (PRESERVATIVE FREE) 10 ML IV (08:17)
--- NOTE | 2024-04-04 08:30 | PTCARENOTE ---
Assumed care of pt at 0715 following shift report. Pt asleep- woken to name for assessment and care. Ox3, conversation appropriate. Reports continued generalized abdominal discomfort and pain in roof of mouth s/p ETT. Pt aware of timing for next prn
pain med. Comfort care provided. Oral care, Hicks hygiene and physical assessment completed. Tapering Levophed gtt per ordered parameters. Call interiano w/in pt reach and safe environment provided. Phone call received from pt's daughter- updated as
requested and questions answered.
--- NOTE | 2024-04-04 11:30 | PTCARENOTE ---
Pt resting quietly in bed- requesting pain med prior to time due. TT sent to Colorectal surgery PA about pt's pain control- new orders received. Pt repositioned and comfort care provided. No change from previous assessment findings. Pt's and
daughter here to visit.
[2024-04-04] MEDS: OFIRMEV 100 IV ×3 (12:05→23:54)
--- NOTE | 2024-04-04 13:56 | W.PN.GS2 ---
Addendum entered and electronically signed by Keshawn Gant MD 04/04/24 15:56:
I saw and examined the patient.
The Fiberglass Tube Molder's note was reviewed and I agree with the note.
Comment: Pain improved. Stoma producing liquid stool and flatus, minimal NGT output, denies n/v. Clamp trial initiated. Would start sips and chips if he passes. Hb trending down to 7.4 today, would hold AC until stable, SCDs for DVT ppx.
Original Note:
Today's Communication / Plan
-
NGT clamping trial
Assessment / Plan
-
84 yo male with a history of metastatic prostate cancer (tx XRT, lupron, xgeva, xtandi, cirrhosis and prior ETOH who initially presented for colonoscopy on 04/02 with partially obstructing mass of the descending colon noted with bowel perforation
during procedure taken for emergent surgery.
POD #2 exploratory laparotomy with total abdominal colectomy and diverting loop ileostomy
Afebrile
Pressors still being weaned, mild tachycarida
Extubated and on 2L NC
Pain present but decreased from previous with analgesic adjustments
NGT with minimal output; stoma functioning with flatus/liquid stool in appliance
Echo with LV thrombus
Acute anemia secondary to expected procedural losses and hemodilution; transfuse one unit this am. Previously received platelets x2 and 1 unit of PRBC's on 04/02.
--Clamp NGT and remove if tolerates/residuals low later this evening
--NPO with ice chips for comfort
--Follow CBC's
--Hold full AC until h/h stable post op
--Multimodal analgesics: ofirmev/dilaudid
--Continue to wean pressors
--Healthcare Consulting Manager, cable armorer, GI and hospitalist following as well
Subjective Data
-
Date of Service: April 04, 2024
Patient seen and examined at bedside with family present. Notes severe pain yesterday which is improving slowly (03/26 to 11/24). Reports he had mouth pain which is gone. Denies n/v.
Objective Data
-
Intake and Output
04/03/24 04/04/24 04/05/24
06:59 06:59 06:59
Intake Total 2011.5 / 2184.0 4328.1 / 4498.1 834.5 / 834.5
Output Total 680 / 680 1485 / 1585 290 / 290
Balance 1331.5 / 1504.0 2843.1 / 2913.1 544.5 / 544.5
Intake:
IV fluids (Total) 1961.5 / 2134.0 3988.1 / 4158.1 517.0 / 517.0
D5/0.9% Sodium Chloride 1,000 2750 / 2875 375 / 375
ml @ 125 mls/hr IV .Q8H [facility] Rx#
:[id number]
Levo 161.5 / 184.0 938.1 / 983.1 142.0 / 142.0
Normosol-R/Plasmalyte-A 1,000 1800 / 1950 300 / 300
ml @ 150 mls/hr IV .Q6H40M [facility]
Rx#:[id number]
IV piggybacks 50 / 50 150 / 150 67.5 / 67.5
Amount instilled into GI Tube ( 190 / 190
Total)
[place] Sump 190 / 190
Blood Product Amount Infused ( 250 / 250
mL)
Packed Rbc Leukoreduced Unit 250 / 250
[id number]
Output:
Gastrointestinal tube output ( 50 / 50
Total)
[place] Sump 50 / 50
Urine, Hicks 1435 / 1535 290 / 290
Urine, Voided 680 / 680
Vital Signs
Temp Pulse Resp BP Pulse Ox
98.4 F 102 24 105/44 96
04/04/24 12:27 04/04/24 12:27 04/04/24 12:27 04/04/24 12:27 04/04/24 11:00
Lab Results
04/04/24 04:13
Calcium 6.8 mg/dl (8.4-10.2) L* 04/04/24 04:13
Magnesium 1.8 mg/dl (1.6-2.3) 04/04/24 04:13
Total Bilirubin 2.9 mg/dl (0.2-1.3) H D 04/04/24 04:13
AST 35 U/L (17-59) 04/04/24 04:13
ALT 15 U/L (0-50) 04/04/24 04:13
Alkaline Phosphatase < 20 U/L (38-126) L 04/04/24 04:13
Total Protein 4.3 g/dl (6.3-8.2) L D 04/04/24 04:13
Albumin 2.1 g/dl (3.5-5.0) L 04/04/24 04:13
Physical Exam
-
NAD
ABD soft, generalized tenderness to light palpation, ND
Stoma pink/viable with flexible bridge and productive of stool/flatus
NGT with low output light gastric outputs
--- NOTE | 2024-04-04 15:07 | PTCARENOTE ---
Dr Gant in room to see pt. NGT clamped at 1445 per verbal order. Pt in chair position in bed. Attempted to wean down Levophed- currently at 6mcg/min- while maintaining MAP >65. IV Team RN to room to place Midline- pt tolerated well and Levophed
relocated to infuse through midline. Lt radial Joan remains in place; waveform wnl- leveled and zero balanced. Pt's and daughter gone home at this time. Pt encouraged in using IS- pulling [phone]. Call laisha w/in pt reach.
[2024-04-04 15:17] LABS: Blood Urea Nitrogen 22 mg/dl (9-20); Calcium 7.5 mg/dl (8.4-10.2); Carbon Dioxide 18 mmol/L (22-30); Chloride 111 mmol/L (98-107); Estimated Creatinine Clearance 50 ml/min; Glucose 153 mg/dl (70-99); Potassium 4.1 mmol/L (3.5-5.1); Sodium 135 mmol/L (135-145); eGFR > 60.00
[2024-04-04] MEDS: LOVENOX 40 MG SC (18:07)
--- NOTE | 2024-04-04 19:48 | PTCARENOTE ---
Pt AOx3, NSR/ST on monitor, pain well controlled with Ofirmev. Levophed titrated for MAP >65. 2Lit o2 sats 92-94%, lungs diminished, encouraging IS. Right nare NGT Clamped, will check residual at 2100. Pt denies N/V. Abdominal incision intact, old
drainage. Ileostomy out put green bile. Hicks in place, jagjit urine. Hicks care complete. Pt appears comfortable at this time, Q2hour turns with pillows.
--- NOTE | 2024-04-04 21:29 | PTCARENOTE ---
NGT with no residual, pt has NO nausea or vomiting. NGT pulled at 2130. Pt also passed small gelatinous blood tinged mucus via rectum.
[2024-04-05] VITALS (29 sets, daily range): BP systolic 85–128; BP diastolic 45–87; BMI 21.8
[2024-04-05] MEDS: D5/0.9% SODIUM CHLORIDE IV ×2 (00:07→18:15)
[2024-04-05] MEDS: LEVOPHED 250 IV (01:00)
[2024-04-05] MEDS: D5/0.9% SODIUM CHLORIDE 1000 IV (04:00)
[2024-04-05] MEDS: DILAUDID 0.25 MG IV (04:06)
[2024-04-05 05:05] LABS: Hematocrit 23.9 % (39.0-52.0); Hemoglobin 8.4 g/dL (13.0-18.0); Mean Corp Hgb Conc. 35.1 g/dL (33.0-37.0); Mean Corpuscular Hgb 31.6 pg (27.0-31.0); Mean Corpuscular Volume 89.8 fL (80.0-94.0); Red Blood Cell Count 2.66 10^6/uL (4.70-6.10); Red Cell Dist. Width 15.3 % (11.5-14.5); White Blood Cell Count 6.2 10^3/uL (4.8-10.8)
[2024-04-05 05:08] LABS: Blood Urea Nitrogen 18 mg/dl (9-20); Calcium 7.3 mg/dl (8.4-10.2); Carbon Dioxide 18 mmol/L (22-30); Chloride 112 mmol/L (98-107); Estimated Creatinine Clearance 50 ml/min; Glucose 146 mg/dl (70-99); Magnesium 1.8 mg/dl (1.6-2.3); Potassium 3.6 mmol/L (3.5-5.1); Sodium 138 mmol/L (135-145); eGFR > 60.00
[2024-04-05 05:37] LABS: Mean Platelet Volume 10.1 fL (7.4-10.4)
[2024-04-05 05:38] LABS: Platelet Count 66 10^3/uL (130-400)
[2024-04-05] MEDS: ZOSYN 50 IV ×4 (06:08→23:35)
--- NOTE | 2024-04-05 06:54 | W.PN.HOSP.TC ---
Today's Communication/Plan
-
DC A line if possible
Star low dose Midodrine
Wean off Levophed/ Patient runs low BP at baseline
Out of bed protocol
Surgery recommends to hold on AC for today
Assessment / Plan
Assessment / Plan
Physical Exam
General: No Apparent Distress and Other (frail appearing)
HEENT: PERRLA, off NG, nasal O2
Respiratory: Clear, Wheezes and Decreased Breath Sounds
Cardiac: S1/S2 and Regular Rhythm
GI: Soft and Non Tender, + ileostomy
Musculoskeletal: No Edema
Skin: Warm and Dry; No Rash
Psych: Calm
Mr. 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
# Acute bowel perforation post colonoscopy
s/p exploratory laparotomy, abdominal colectomy with loop ileostomy by Dr Regalado on 04/02 for perforated cecum, intestinal malrotation, splenic flexure mass, small bowel adhesion
continue post op care with bowel rest until resuming function
Ordered IVF, replace electrolytes as appropriate, Can try liquids
C/W IV Zosyn, total 5 days, day # 3
WBC normalized
OR culture no growth,
NG is removed
Appreciate colorectal Surgery help
# LV Thrombus
Possible chronic in LV
Goal to start Systemic AC, will reach out to surgery today
# Shock
Hard to blame one reason, I think it is a combination of hypovolemic/ hemorrhagic / septic shock/
Echo showed LVEF 40%, Last echo in 2021 showed normal LVEF.
S/P 3 units total of RBCs transfusion, IVF, IV Abx and we controlled source of bleeding ( tumor is out)
Will wean off Levophed as possible. Start oral Midodrine
#Acute blood loss anemia
He presented with bright red blood per rectum and blood loss during the surgery
Order blood transfusion for today, total 1 unit RBCs, 2 units platelets
Goal to keep HGB around 8 ( hx of cirrhosis)
# Operative and post op intubation
Extubated on 04/03
# Hx Radiation Proctitis
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
Hx of Secondary esophageal varices
Ordered IV PPI
# Chronic thrombocytopenia/ pancytopenia
Plt count is good
WBC is up to 14.3 post shock
# HANY
Creatinine on admission 1.4, coming down to 1.2 today
No flank pain
# Hx Metastatic Prostate CA
Primary oncologist Dr Blackwood and DR Quinteros
-patient on Lupron, Xgeva, Xtandi, holding for now
Updated Dr Blackwood.
Hx Alcoholic Liver cirrhosis
Hx of ascites s/p paracentesis
Thrombocytopenia
-held OUT OF TOWN COLLECTION CLERK lasix/spironolactone in setting of bleeding, NPO
# Hypokalemia, replace
# Hypocalcemia, replace
#GERD
- PPI
DVT PPx SCD
DNR - discussed on admission
Total time spent to see the patient on the floor, examine the patient, review data and lab results, discuss treatment plan with patient and family, nursing staff around 55 minutes
Anticipated Discharge: > 48 hours
Subjective/Interval History
-
Date of Service: April 05, 2024
Objective Data
-
Labs:
Laboratory Results
04/05/24
04:18
WBC 6.2
Hgb 8.4 L
Hct 23.9 L
Plt Count 66 L D
Sodium 138
Potassium 3.6
Chloride 112 H
Carbon Dioxide 18 L
BUN 18
Creatinine 1.0
Glucose 146 H
Calcium 7.3 L
Vital Signs:
Vital Signs
Temp Pulse Resp BP Pulse Ox
98.0 F 92 24 92/59 93
04/05/24 03:38 04/05/24 06:45 04/05/24 06:45 04/04/24 13:19 04/05/24 06:45
I&O
04/03/24 04/04/24 04/05/24
06:59 06:59 06:59
Intake Total 2011.5 / 2184.0 4328.1 / 4498.1 3910.0 / 3910.0
Output Total 680 / 680 1485 / 1585 1465 / 1465
Balance 1331.5 / 1504.0 2843.1 / 2913.1 2445.0 / 2445.0
--- NOTE | 2024-04-05 07:47 | W.PN.INTV ---
Today's Communication / Plan
Recommendations
Wean pressors
Wean oxygen
Antibiotics
Activity of diet per surgery
If able to be weaned off pressors then transfer out of ICU-call pulmonary if respiratory issues arise
Assessment
-
84-year-old male with a history of stage IV prostate cancer with bone mets, hyperlipidemia, depression, radiation proctitis, cirrhosis and Paulino's esophagus who presented with significant diarrhea for several months and underwent colonoscopy noted
to have a large partially obstructing mass descending colon noted to have perforation and went to the OR-aeronautical project engineer consulted for postoperative critical care management 04/02/2024.
Colonic mass status post colonoscopy/suspected perforation
Emergent OR 04/02/2024-
Lcgssq-pedsblmcps-fcyfdmqeck 10.0
Leukopenia-WBC 3.0
Thrombocytopenia-platelets 78
Mild hyperglycemia
HANY-improved
Elevated total bilirubin
Nodular opacifications posterior lung funes measuring up to 1.2 cm on chest x-ray 11/2023
Conditions present prior to admission:
Prostate cancer stage IV with bony mets status post radiation on Lupron/Xgeva/Xtandi.
Radiation proctitis.
Squamous cell cancer skin.
Hyperlipidemia.
Depression.
Aortic insufficiency.
AVM.
Cirrhosis-former drinker
Former smoker
COPD
Right pleural effusion--1700 mL transudate 09/2023
Paulino's esophagus.
Cholelithiasis
Tonsillectomy.
Plan
Remains critically ill on pressors
Wean FiO2
Aspiration precautions
Incentive spirometry encouraged
Nebulizers if needed-likely history of COPD-currently not bronchospastic
Surgery following-correspondence reviewed
Status post OR
Nasogastric tube per surgery
Wound nurse for stoma
Discontinue arterial line
Wean and norepinephrine
Low-dose midodrine initiated
Gastroenterology following
Colonoscopy noted-biopsy pending as well as operative pathology
Follow hemoglobin
Transfuse as needed-will receive additional unit PRBC today
Monitor thrombocytopenia-again transfuse as needed
Resume systemic anticoagulation when safe-likely 04/05/2024
Intravenous fluids
Monitor renal function
If throat pain persist-suspect related to nasogastric tube and endotracheal tube then consider ENT evaluation
DVT prophylaxis-on Lovenox
GI prophylaxis-on pantoprazole
Nutrition per surgery and gastroenterology
Early mobilization
If able to be weaned off norepinephrine then transfer out of ICU-call pulmonary if respiratory issues arise
Most recent chest x-ray with 3 nodular opacifications 11/2023-CT chest recommended, repeat chest x-ray this admission reviewed-outpatient pulmonary [id number] has COPD as well
Critical care statement: A total of 40 minutes of critical care time was provided for this patient today. This includes management of unstable vital signs, evaluation of the patient at bedside, reviewing the patient's pertinent medical records
including radiographs, pressor management, microbiology, laboratory evaluations, and discussion with primary team, consultants, pharmacy, nutrition, physical therapy, case management, charge nurse, critical care nursing, and respiratory therapy.
Diagnostic data:
Chest x-ray-01/04/2022-new pleural-based mass versus right hemidiaphragm eventration versus loculated pleural effusion, COPD changes, osteopenia, mild osteoblastic metastatic disease
Chest x-ray 12/05/2023-small right pleural effusion, 3 nodular opacifications posterior lung funes measuring up to 1.2 cm, repeat CT chest recommended
CT chest 01/08/2022-large volume ascites, suspicious for cirrhosis, diverticulosis, cholelithiasis, moderate right and small left pleural effusion, no pulmonary emboli, no hilar or mediastinal mass or enlarged adenopathy
Thoracentesis 09/23/23-successful 1700 mL clear fluid removal from the right
Echocardiogram 01/09/2022-EF 60-65%, no severe valvular disease
Echocardiogram 04/03/2024: EF 40%, akinesis of the distal myocardial segments with apical dyskinesis with aneurysmal formation with small LV thrombus present at the apex, approximately 1.0 cm, trivial anterior pericardial effusion, mildly dilated
aortic root, measuring 4.4 cm at sinus of Valsalva
Subjective Dataa
Subjective Data
Date of Service:
Date of Service: April 05, 2024
Chief Complaint: Lens Matcher Follow Up, Pulmonary Follow Up and Vent Management Follow Up
Subjective:
Feels better with nasogastric tube out, less throat pain, some mild shortness of breath, no chest pain
Review of Systems
General: Other (Per HPI)
Objective Data
Data Reviewed
Vital Signs / I&O / Oxygen:
Vital Signs
Temp Pulse Resp BP Pulse Ox
97.4 F 92 24 92/59 93
04/05/24 07:00 04/05/24 06:45 04/05/24 06:45 04/04/24 13:19 04/05/24 06:45
Intake and Output
04/04/24 04/05/24 04/06/24
06:59 06:59 06:59
Intake Total 4328.1 / 4498.1 3910.0 / 3910.0
Output Total 1485 / 1585 1465 / 1465
Balance 2843.1 / 2913.1 2445.0 / 2445.0
SaO2 [CPAP/PSV] 98
SaO2 [A/C] 100
SaO2 93
Nasal Cannula flow liters per 2
minute
Physical Exam
General: Respiratory Distress (n) and Comfortable
HEENT: Normocephalic, Anicteric and Moist Mucous Membranes
Cardiovascular: Regular Rhythm
Respiratory: Wheeze (n), Crackles (n), Rhonchi (n), Non-Labored Respirations, Accessory Resp Muscle Use (n) and Stridor (n)
GI: Soft, Distended and Tender
Neurology: Awake, Alert and No Motor Deficits
Skin: Warm, Good Color, Cyanosis (n), Jaundice (n) and Rash (n)
Labs/Micro/Reports
Lab Data
04/05/24 04:18
04/05/24 04:18
--- NOTE | 2024-04-05 08:10 | W.PN.CARDCBS ---
Today's Communication / Plan
-
GDMT when able; levophed remains at 2
Monitor PLT/HH; currently stable without signs of bleeding; OAC for thrombus when OK with surgery
Impression / Plan
-
PCP: Dr. Patiño
Pecan Grower: None, follows w/ Dr. King
Impression:
Presented with rectal bleeding
Anemia, worsening
- Hbg 8.9 04/03 now 7.4 04/04, 8.4 04/05
Thrombocytopenia
- Plt 66 04/05 (prev 118; history of low plt during this admission)
Cardiomyopathy, EF 40% by echo 04/03
LV thrombus
Colonic mass, perforated cecum s/p colectomy and ileostomy
Metastatic prostate cancer
h/o XRT, on lupron, Xgeva, Xtandi
h/o cirrhosis
GERD
Paulino's Esophagus
HTN
h/o ETOH abuse
Echo 01/09/2022: EF 60 to 65%, trace MR
Echo 04/03/2024: EF 40%, akinesis of the distal myocardial segments with apical dyskinesis with aneurysmal formation with small LV thrombus present at the apex, approximately 1.0 cm, trivial anterior pericardial effusion, mildly dilated aortic root,
measuring 4.4 cm at sinus of Valsalva
Plan:
-Presented with rectal bleeding. Found to have partially obstructing mass on colonoscopy.
-Severe pain post procedure, xray findings concerning for free air. Found to have perforation of the cecum during exploratory laparotomy, and underwent colectomy with ileostomy 04/02/2024.
-Ongoing hypotension and shock, on levophed. Echo checked to assess EF and found to have LV thrombus with EF 40%
-Would recommend starting AC for LV thrombus once safe from a surgical standpoint, likely 48h post op.
-Hgb 8.9 04/03, 8.4 04/05. Follow closely. He has received 1 unit PRBCs, 2 units platelets this admission.; may require further transfusion, defer to surgical service
-Will have CM assess the cost of Eliquis 5mg BID. Follow up echo as OP to reassess.
-EF newly reduced, down to 40% by echo 04/03. On spironolactone as OP due to cirrhosis, on hold currently due to shock, hypotension which has been improving
-Ideally once BP improves and off pressors, would start beta louise and initiate GDMT as able.
-EKG reviewed, SR with 1st degree AV block. tele SR/ST
-Continue post op care
HPI: Michael is an 84 year old male with PMH of metastatic prostate cancer, cirrhosis, GERD, HTN, Paulino's esophagus, and prior ETOH abuse who presented to [facility] for evaluation of rectal bleeding. He underwent colonoscopy 04/02 for evaluation and was
noted to have a partially obstructing mass in the descending colon. Post-procedurally, he was noted to have abdominal pain that continued to worsen and abdominal xray showed evidence of free air. He ultimately was seen by colorectal surgery and
underwent exploratory laparotomy and was found to have perforation of the cecum and underwent colectomy and ileostomy. Given shock and persistent hypotension, echo was ordered to assess EF. Echo 04/03 showed EF 40% with small, 1.0 cm LV thrombus.
Cardiology consulted for evaluation. Patient reports he has had chronic SOB for 5 years that has been unchanged. He denies any chest pain, dizziness, lightheadedness, or SOB. Currently only complaints are abdominal discomfort related to recent
surgery as well as some soreness in his mouth, likely from intubation.
Progress Note - Pecan Grower
Subjective
Date of Service: April 05, 2024
Patient seen and examined. No acute events overnight. Patient reporting improved abdominal pain. No cp, sob, or weakness. Notes pain with back on position changes. NGT removed 04/04. On Levophed 2
Objective
Labs:
04/05/24 04:18
04/05/24 04:18
Labs
Hgb 8.4 g/dL (13.0-18.0) L 04/05/24 04:18
Hct 23.9 % (39.0-52.0) L 04/05/24 04:18
Plt Count 66 10^3/uL (130-400) L D 04/05/24 04:18
PT 17.3 Sec (11.4-14.6) H 04/04/24 04:13
INR 1.43 04/04/24 04:13
APTT 35.5 Sec (23.4-35.0) H 04/02/24 21:03
Sodium 138 mmol/L (135-145) 04/05/24 04:18
Potassium 3.6 mmol/L (3.5-5.1) 04/05/24 04:18
BUN 18 mg/dl (-) 04/05/24 04:18
Creatinine 1.0 mg/dL (0.7-1.3) 04/05/24 04:18
Glucose 146 mg/dl (70-99) H 04/05/24 04:18
Vital Signs and I&O:
Vital Signs
Temp Pulse Resp BP Pulse Ox
97.4 F 92 24 92/59 93
04/05/24 07:00 04/05/24 06:45 04/05/24 06:45 04/04/24 13:19 04/05/24 06:45
Vital Signs
Temp Pulse Resp BP Pulse Ox
97.4 F 92 24 92/59 93
04/05/24 07:00 04/05/24 06:45 04/05/24 06:45 04/04/24 13:19 04/05/24 06:45
Intake & Output
04/03/24 04/04/24 04/05/24 04/06/24
06:59 06:59 06:59 06:59
Intake Total 2011.5 / 2184.0 4328.1 / 4498.1 3910.0 / 3910.0
Output Total 680 / 680 1485 / 1585 1465 / 1465
Balance 1331.5 / 1504.0 2843.1 / 2913.1 2445.0 / 2445.0
Physical Exam
Physical Exam
GENERAL: no acute distress, cacectic
EYE: sclera anicteric
NECK: Supple, no JVD
ENT: normal nose, moist mucosal membranes
CARDIAC: Regular rate and rhythm, +S1/S2, no murmur, rubs, or gallops
CHEST/PULMONARY: Normal effort, clear breath sounds; distant
ABDOMEN:+ sounds, mild tender to palpation
NEUROLOGICAL: Alert and oriented x3
SKIN: Warm and dry, no rash
PSYCH: Normal and appropriate interaction.
[2024-04-05] MEDS: PROTONIX IV 40 MG IV (08:18)
[2024-04-05] MEDS: NSS (PRESERVATIVE FREE) 10 ML IV (08:18)
[2024-04-05] MEDS: OFIRMEV 100 IV (08:19)
--- NOTE | 2024-04-05 08:20 | PTCARENOTE ---
Addendum entered by Deja García RN 04/05/24 14:46:
Lt radial A-line removed per Dr Cotto. Pressure held at site until hemostasis achieved. Dressing applied to site.
Addendum entered by Deja García RN 04/05/24 14:44:
Original Note:
Assumed care of pt at 0715 following shift report. Pt awake and resting quietly, reports generalized abdominal discomfort while at rest- rates 3/10. Denies nausea. Ofirmev given (see MAR). Pt remains on O2 at 3l/min w/ POx 92-95%. No respiratory
distress. Pt using IS to pull 750ml- encouraged to use q1hr x10 or more frequently. Physical assessment completed as documented. Comfort care/hygiene provided. Call interiano w/in pt reach and safe environment maintained.
[2024-04-05] MEDS: CALCIUM GLUCONATE 100 IV (08:45)
[2024-04-05] MEDS: KCL 270 MEQ IV (08:59)
[2024-04-05] MEDS: ProAmatine 2.5 MG PO (09:55)
--- NOTE | 2024-04-05 12:00 | PTCARENOTE ---
Pt OOB to chair w/ assist of two staff. Pt tolerated increased activity w/o complication. Pt asking if O2 can be removed- POx 97%. RA Pox 90-94%. Call interiano w/in pt reach- pt instructed to notify staff at onset of any SOB. No additional changes from
previous assessment findings.
[2024-04-05] MEDS: ROXICODONE 5 MG PO (12:15)
--- NOTE | 2024-04-05 12:25 | W.PN.GS2 ---
Addendum entered and electronically signed by Keshawn Gant MD 04/05/24 12:41:
I saw and examined the patient.
The Ore Grader's note was reviewed and I agree with the note.
Comment: Improving. Off pressors. Responded approp to 1u PRBC yesterday. Denies n/v. stool and flatus in appliance. Plan to trial CLD.
Original Note:
Today's Communication / Plan
-
Trial of clears
Assessment / Plan
-
84 yo male with a history of metastatic prostate cancer (tx XRT, lupron, xgeva, xtandi, cirrhosis and prior ETOH who initially presented for colonoscopy on 04/02 with partially obstructing mass of the descending colon noted with bowel perforation
during procedure taken for emergent surgery.
POD #3 exploratory laparotomy with total abdominal colectomy and diverting loop ileostomy
Afebrile
Mild hypotension off pressors
H/H stable s/p one unit of blood on 04/04
Pain present but decreased from previous with analgesic adjustments
Echo with LV thrombus
Acute anemia secondary to expected procedural losses and hemodilution; transfuse one unit this am. Previously received platelets x2 and 1 unit of PRBC's on 04/02.
--Trial of clears
--Continue with full AC on hold, anticipate being able to resume tomorrow if h/h remains stable
--Follow CBC's
--Multimodal analgesics: tylenol/oxycodone/dilaudid
--Stoma nurse consult
--Cattle Farmer, slip injector and applicator, GI and hospitalist following as well
Subjective Data
-
Date of Service: April 05, 2024
Patient seen and examined at bedside with Dr. Gant. Denies n/v. Report pain present but better than yesterday. Passed some air and old blood rectally overnight.
Objective Data
-
Intake and Output
04/04/24 04/05/24 04/06/24
06:59 06:59 06:59
Intake Total 4328.1 / 4498.1 3910.0 / 3910.0
Output Total 1485 / 1585 1465 / 1465
Balance 2843.1 / 2913.1 2445.0 / 2445.0
Intake:
IV fluids (Total) 3988.1 / 4158.1 3240.0 / 3240.0
D5/0.9% Sodium Chloride 1,000 2750 / 2875 2625 / 2625
ml @ 125 mls/hr IV .Q8H SHEBA Rx#
:[id number]
Levo 938.1 / 983.1 615.0 / 615.0
Normosol-R/Plasmalyte-A 1,000 300 / 300
ml @ 150 mls/hr IV .Q6H40M SHEBA
Rx#:[id number]
IV piggybacks 150 / 150 420.0 / 420.0
Amount instilled into GI Tube ( 190 / 190
Total)
[place] Sump 190 / 190
Blood Product Amount Infused ( 250 / 250
mL)
Packed Rbc Leukoreduced Unit 250 / 250
[id number]
Output:
Liquid stool amount 330 / 330
Ileostomy 330 / 330
Gastrointestinal tube output ( 50 / 50
Total)
[place] Sump 50 / 50
Urine, Hicks 1435 / 1535 1135 / 1135
Vital Signs
Temp Pulse Resp BP Pulse Ox
97.9 F 91 24 89/54 93
04/05/24 11:00 04/05/24 09:55 04/05/24 06:45 04/05/24 09:55 04/05/24 06:45
Lab Results
04/05/24 04:18
04/05/24 04:18
Calcium 7.3 mg/dl (8.4-10.2) L 04/05/24 04:18
Magnesium 1.8 mg/dl (1.6-2.3) 04/05/24 04:18
Total Bilirubin 2.9 mg/dl (0.2-1.3) H D 04/04/24 04:13
AST 35 U/L (17-59) 04/04/24 04:13
ALT 15 U/L (0-50) 04/04/24 04:13
Alkaline Phosphatase < 20 U/L (38-126) L 04/04/24 04:13
Total Protein 4.3 g/dl (6.3-8.2) L D 04/04/24 04:13
Albumin 2.1 g/dl (3.5-5.0) L 04/04/24 04:13
Physical Exam
-
NAD
ABD soft, generalized tenderness to light palpation, ND
Stoma pink/viable with flexible bridge and productive of stool/flatus
[2024-04-05] MEDS: TYLENOL 650 MG PO ×3 (15:50→23:39)
[2024-04-05] MEDS: ProAmatine 5 MG PO (15:50)
[2024-04-05] MEDS: LASIX 40 MG IV (15:50)
--- NOTE | 2024-04-05 16:00 | PTCARENOTE ---
Levophed gtt restarted at 1244 for MAP in low 60's and SBP in 80's (see worklist intervention). Pt remained OOB in chair visiting w/ family until 1500 when returned to bed x2 assist. Pt w/ increasing O2 demand- RA to requiring O2 at 6l/min to keep
POx >90%. Urine output has been marginal this shift and pt w/ noted increased wt since admission. TT to Dr Bang w/ findings. Order for Lasix received and administered and IVF d/c'ed.
[2024-04-05] MEDS: LOVENOX 40 MG SC (17:51)
--- NOTE | 2024-04-05 18:10 | PTCARENOTE ---
Pt's Pox improved to 97% on 6l/min O2 w/in an hour of Lasix administration. O2 decreased to 4l/min w/ POx 94%. Pts urine output improving w/ urine now pale clear yellow (previously jagjit). Hicks catheter removed per protocol. Pt resting quietly
since previous dose of Tylenol PO. No additional changes or new complaints.
--- NOTE | 2024-04-05 20:00 | PTCARENOTE ---
Rec'd pt resting in bed, cooperative, tylenol 650 mg po given for incis pain, ST, to keep MAP > 65 w/ levophed, presently at 2 sulma, see flow sheet for titrations, weak distal pulses, skin warm/dry, O2 6 litersnc, lungs decr, enc to use IS- reaches
750ml, hypo bowel sounds, ileostomy w/ green/brown liquid drainage, sm amt mucous via rectum, antione fluids, voiding jagjit urine
[2024-04-06] VITALS (77 sets, daily range): BP systolic 84–146; BP diastolic 42–91; PULSE 95–96; BMI 21.6
--- NOTE | 2024-04-06 | PTCARENOTE ---
sys reviewed, changes noted, CHG bath done, linens changed, tylenol 650mg po given for pain
--- NOTE | 2024-04-06 03:46 | PTCARENOTE ---
sys reviewed, changes noted, weaning levo as antione
[2024-04-06 04:26] LABS: Hematocrit 24.3 % (39.0-52.0); Hemoglobin 8.6 g/dL (13.0-18.0); Mean Corp Hgb Conc. 35.4 g/dL (33.0-37.0); Mean Corpuscular Hgb 30.6 pg (27.0-31.0); Mean Corpuscular Volume 86.5 fL (80.0-94.0); Red Blood Cell Count 2.81 10^6/uL (4.70-6.10); Red Cell Dist. Width 15.4 % (11.5-14.5); White Blood Cell Count 7.1 10^3/uL (4.8-10.8)
[2024-04-06 04:38] LABS: Blood Urea Nitrogen 21 mg/dl (9-20); Calcium 7.9 mg/dl (8.4-10.2); Carbon Dioxide 19 mmol/L (22-30); Chloride 112 mmol/L (98-107); Estimated Creatinine Clearance 47 ml/min; Glucose 112 mg/dl (70-99); Magnesium 1.7 mg/dl (1.6-2.3); Potassium 3.9 mmol/L (3.5-5.1); Sodium 139 mmol/L (135-145); eGFR > 60.00
[2024-04-06 04:42] LABS: Mean Platelet Volume 10.8 fL (7.4-10.4); Platelet Count 77 10^3/uL (130-400)
[2024-04-06] MEDS: ZOSYN 50 IV ×4 (05:45→23:24)
[2024-04-06] MEDS: ROXICODONE 5 MG PO ×3 (06:59→21:41)
[2024-04-06] MEDS: PROTONIX IV 40 MG IV (08:00)
[2024-04-06] MEDS: NSS (PRESERVATIVE FREE) 10 ML IV (08:00)
--- NOTE | 2024-04-06 08:10 | W.PN.CARDCBS ---
Today's Communication / Plan
-
New CM with EF 40% and and LV thrombus.
-Start anticoagulation for LV thrombus once ok from a surgical standpoint, possibly next 24 hrs.
-CM to assess the cost of Eliquis 5mg BID.
-Follow up echo as OP to reassess LV function and thrombus.
-Once off pressors and if bp remains stable, consider initiation of Coreg
-GDMT as bp will allow
Impression / Plan
-
.
PCP: Dr. Patiño
Hide Selector: None, follows w/ Dr. King
Impression:
Presented with rectal bleeding
Colonic mass, perforated cecum s/p colectomy and ileostomy
Anemia
- Hbg 8.9 04/03 now 7.4 04/04, 8.4 04/05, 8.6 on 04/06
Thrombocytopenia
- Plt 66 04/05 (prev 118; history of low plt during this admission)
Cardiomyopathy, EF 40% by echo 04/03
LV thrombus
Metastatic prostate cancer
h/o XRT, on lupron, Xgeva, Xtandi
Hx cirrhosis
GERD with Paulino's Esophagus
HTN
Hx ETOH abuse
Echo 01/09/2022: EF 60 to 65%, trace MR
Echo 04/03/2024: EF 40%, akinesis of the distal myocardial segments with apical dyskinesis with aneurysmal formation with small LV thrombus present at the apex, approximately 1.0 cm, trivial anterior pericardial effusion, mildly dilated aortic root,
measuring 4.4 cm at sinus of Valsalva
Plan:
-Presented with rectal bleeding. Found to have partially obstructing mass on colonoscopy. Severe pain post procedure, xray findings concerning for free air. Found to have perforation of the cecum during exploratory laparotomy, and underwent
colectomy with ileostomy 04/02/2024.
Cont post op care. Surgery to advance diet
Wean IV Levophed. HR and bp stable.
New CM with EF 40% and and LV thrombus.
-Start anticoagulation for LV thrombus once ok from a surgical standpoint, possibly next 24 hrs.
-CM to assess the cost of Eliquis 5mg BID.
-Follow up echo as OP to reassess LV function and thrombus.
-Once off pressors and if bp remains stable, consider initiation of Coreg
-GDMT as bp will allow
Post op anemia. Hemoglobin overall stable. Hb 8.6 Apr 06. He received 1 unit PRBCs, 2 units platelets this admission; may require further transfusion, defer to surgical service
Remains sinus
He wants to follow with Dr King after d/c.
Discussed with nursing.
HPI: Michael is an 84 year old male with PMH of metastatic prostate cancer, cirrhosis, GERD, HTN, Paulino's esophagus, and prior ETOH abuse who presented to [facility] for evaluation of rectal bleeding. He underwent colonoscopy 04/02 for evaluation and was
noted to have a partially obstructing mass in the descending colon. Post-procedurally, he was noted to have abdominal pain that continued to worsen and abdominal xray showed evidence of free air. He ultimately was seen by colorectal surgery and
underwent exploratory laparotomy and was found to have perforation of the cecum and underwent colectomy and ileostomy. Given shock and persistent hypotension, echo was ordered to assess EF. Echo 04/03 showed EF 40% with small, 1.0 cm LV thrombus.
Cardiology consulted for evaluation. Patient reports he has had chronic SOB for 5 years that has been unchanged. He denies any chest pain, dizziness, lightheadedness, or SOB. Currently only complaints are abdominal discomfort related to recent
surgery as well as some soreness in his mouth, likely from intubation.
Progress Note - Hide Selector
Subjective
Date of Service: April 06, 2024
Pt seen and examined. No complaints. No chest pain or shortness of breath.
Objective
Labs:
04/06/24 03:35
04/06/24 03:35
Labs
Hgb 8.6 g/dL (13.0-18.0) L 04/06/24 03:35
Hct 24.3 % (39.0-52.0) L 04/06/24 03:35
Plt Count 77 10^3/uL (130-400) L 04/06/24 03:35
PT 17.3 Sec (11.4-14.6) H 04/04/24 04:13
INR 1.43 04/04/24 04:13
APTT 35.5 Sec (23.4-35.0) H 04/02/24 21:03
Sodium 139 mmol/L (135-145) 04/06/24 03:35
Potassium 3.9 mmol/L (3.5-5.1) 04/06/24 03:35
BUN 21 mg/dl (9-20) H 04/06/24 03:35
Creatinine 1.1 mg/dL (0.7-1.3) 04/06/24 03:35
Glucose 112 mg/dl (70-99) H 04/06/24 03:35
Vital Signs and I&O:
Vital Signs
Temp Pulse Resp BP Pulse Ox
98.3 F 91 29 146/77 94
04/06/24 03:46 04/06/24 05:45 04/06/24 05:45 04/06/24 05:45 04/06/24 05:45
Vital Signs
Temp Pulse Resp BP Pulse Ox
98.3 F 91 29 146/77 94
04/06/24 03:46 04/06/24 05:45 04/06/24 05:45 04/06/24 05:45 04/06/24 05:45
Intake & Output
04/04/24 04/05/24 04/06/24 04/07/24
06:59 06:59 06:59 06:59
Intake Total 4328.1 / 4498.1 3910.0 / 4042.5 2168.9 / 2168.9
Output Total 1485 / 1585 1465 / 1465 2009
Balance 2843.1 / 2913.1 2445.0 / 2577.5 158.9 / 158.9
Physical Exam
Physical Exam
General: No acute distress, AAOX3
Neck: Negative JVD
Heart: Regular, Negative S3 positive S1/S2, Negative S4, No murmur
Lungs: CTA b/l, negative wheezes/rales/rhonchi
Abd: Positive BS, NT/ND, neg rebound/rigidity/guarding
Ext: Negative cyanosis/clubbing/edema
Neuro: nonfocal
[2024-04-06] MEDS: TYLENOL 650 MG PO (08:21)
--- NOTE | 2024-04-06 09:39 | W.PN.HOSP.TC ---
Today's Communication/Plan
-
IV antibiotics. Postop care.
Assessment / Plan
Assessment / Plan
Physical Exam
General: No Apparent Distress and Other (frail appearing)
HEENT: PERRLA, off NG, nasal O2
Respiratory: Clear, Wheezes and Decreased Breath Sounds
Cardiac: S1/S2 and Regular Rhythm
GI: Soft and Non Tender, + ileostomy and postop findings.
Musculoskeletal: No Edema
Skin: Warm and Dry; No Rash
Psych: Calm
A/P:
Mr. 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
# Acute bowel perforation post colonoscopy
s/p exploratory laparotomy, abdominal colectomy with loop ileostomy by Dr Regalado on 04/02 for perforated cecum, intestinal malrotation, splenic flexure mass, small bowel adhesion
continue post op care with bowel rest until resuming function
Pressors as needed
C/W IV Zosyn
WBC normalized but follow-up trend
OR culture no growth,
NG is removed
Appreciate colorectal Surgery help
Discussed with Colorectal today via [place] text and gave clearance to start Eliquis-cardiology aware. Recommended to keep on clear diet and increased pain medications.
# LV Thrombus
Possible chronic in LV
Goal to start Systemic AC
# Shock
Hard to blame one reason, I think it is a combination of hypovolemic/ hemorrhagic / septic shock/
Echo showed LVEF 40%, Last echo in 2021 showed normal LVEF.
S/P 3 units total of RBCs transfusion, IVF, IV Abx and we controlled source of bleeding ( tumor is out)
Will wean off Levophed as possible. Start oral Midodrine
#Acute blood loss anemia
He presented with bright red blood per rectum and blood loss during the surgery
Order blood transfusion for today, total 1 unit RBCs, 2 units platelets
Goal to keep HGB around 8 ( hx of cirrhosis)
Hemoglobin today at 8.6
# Operative and post op intubation
Extubated on 04/03
# Hx Radiation Proctitis
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
Hx of Secondary esophageal varices
Back to oral PPI
# Chronic thrombocytopenia/ pancytopenia
Platelet count 77 today
Continue to monitor
# HANY
Creatinine on admission 1.4, coming down to 1.1 today
No flank pain
# Hx Metastatic Prostate CA
Primary oncologist Dr Blackwood and Dr Quinteros
-patient on Lupron, Xgeva, Xtandi, holding for now
Updated Dr Blackwood by Dr. Bang.
Hx Alcoholic Liver cirrhosis
Hx of ascites s/p paracentesis
Thrombocytopenia
-held [employer]OR OF [employer] lasix/spironolactone in setting of bleeding, NPO
# Hypokalemia, replace
# Hypocalcemia, replace
#GERD
- PPI
DVT PPx SCD
DNR - discussed on admission
Total time spent to see the patient on the floor, examine the patient, review data and lab results, discuss treatment plan with patient and family, nursing staff around 55 minutes
Anticipated Discharge: > 48 hours
Subjective/Interval History
-
Date of Service: April 06, 2024
Patient feels better overall. No nausea or vomiting. Pain on and off but tolerable. Generalized weakness. Afebrile
Objective Data
-
Labs:
Laboratory Results
04/06/24
03:35
WBC 7.1
Hgb 8.6 L
Hct 24.3 L
Plt Count 77 L
Sodium 139
Potassium 3.9
Chloride 112 H
Carbon Dioxide 19 L
BUN 21 H
Creatinine 1.1
Glucose 112 H
Calcium 7.9 L
Vital Signs:
Vital Signs
Temp Pulse Resp BP Pulse Ox
97.5 F 91 29 146/77 94
04/06/24 08:12 04/06/24 05:45 04/06/24 05:45 04/06/24 05:45 04/06/24 05:45
I&O
04/05/24 04/06/24 04/07/24
06:59 06:59 06:59
Intake Total 3910.0 / 4042.5 2176.4 / 2183.9 262.5 / 262.5
Output Total 1465 / 1465 2009
Balance 2445.0 / 2577.5 166.4 / 173.9 262.5 / 262.5
--- NOTE | 2024-04-06 10:22 | W.PN.GI.CBS2 ---
Today's Communication / Plan
-
management per surgery
Assessment / Plan
-
Pt is 84yo presents with hx prostate CA with prior radiation with current therapy( Leuprolide, Xgeva, Xtandi) with mets, squamous cell CA, CKD, Ecoli sepsis/diverticulitis, AI, prior GI bleeding, prior noted AVM radiation proctitis, chronic
diarrhea with Imodium use, cirrhosis with grade I EV on EGD 2021, hx paracentesis several years ago, effusion with prior thoracentesis, humphries's with current admission to ER with rectal bleeding and increased stool frequency with use of Imodium
and need for depends. He has been recommended colonoscopy Dr. Carreon with prior abnormal CT 2021 with concern for soft tissue nodularity in splenic flexure. 04/02 s/p colon with partially obs mass unable to pass, post x ray with small amount
free air, s/p exp lap ileostomy for cecal perf, malrotation and splenic flex mass, SB adhesions
04/02 colonoscopy - large internal hemorrhoids, lax sphincter tone, large partially obstructing mass descending colon unable to reach past transverse colon diverticulosis
04/02 abd X ray-Findings suspicious for small volume free air.
04/02 s/p exp lap, colectomy with ileostomy, perforation of cecum, intestinal malrotation, splenic flexure mass with tattoo, SB adhesion at rectosigmoid Junction, oozing during surgery
) exploratory laparotomy 2) abdominal colectomy with ileostomy
-s/p colonoscopy for bleeding with concern for perforation with mass and exp lap with ileostomy
-rectal bleeding with chronic diarrhea prior to admission
-hx metastatic prostate CA to bone -- prior radiation current Leuprolide, Xgeva, Xtandi
-cirrhosis with hx grade I EV 2021, paracentesis 2021, no HE, AFP 1.23 12/2023
-anemia
-hx prior noted colonic angioectasia c/w radiation proctitis
-CT 2021 with 1.5 cm soft tissue nodule along splenic flexure adherent stool vs polyp
-thrombocytopenia
other medical problems:
-squamous cell CA
- hx GI bleed
-colon polyp
-humphries's
-Ecoli sepsis diverticulitis
-pleural effusion with prior thoracentesis
-Prior ETOH abuse quit 2-3 years ago
-GERD
-CKD
-aortic insufficiency
PLAN:
continue post op care as per surgery
f/u path
outpatient f/u with Dr Carreon
will sign off call with questions
Subjective
Subjective
Date of Service: April 06, 2024
Pt sitting up in chair, no specific complaints
Objective
Data Reviewed
Laboratory Data:
Laboratory Results
04/06/24 03:35
04/06/24 03:35
Laboratory Results
PT 17.3 Sec (11.4-14.6) H 04/04/24 04:13
INR 1.43 04/04/24 04:13
APTT 35.5 Sec (23.4-35.0) H 04/02/24 21:03
Magnesium 1.7 mg/dl (1.6-2.3) 04/06/24 03:35
Total Bilirubin 2.9 mg/dl (0.2-1.3) H D 04/04/24 04:13
AST 35 U/L (17-59) 04/04/24 04:13
ALT 15 U/L (0-50) 04/04/24 04:13
Alkaline Phosphatase < 20 U/L (38-126) L 04/04/24 04:13
Vital Signs and I&O:
Vital Signs
Temp Pulse Resp BP Pulse Ox
97.5 F 91 29 146/77 97
04/06/24 08:12 04/06/24 05:45 04/06/24 05:45 04/06/24 05:45 04/06/24 08:17
I&O
04/05/24 04/06/24 04/07/24
06:59 06:59 06:59
Intake Total 3910.0 / 4042.5 2176.4 / 2183.9 262.5 / 262.5
Output Total 1465 / 1465 2009
Balance 2445.0 / 2577.5 166.4 / 173.9 262.5 / 262.5
Physical Exam
Physical Exam
Neuro: Other (alert, conversant)
[2024-04-06] MEDS: ROXICODONE 10 MG PO (11:03)
--- NOTE | 2024-04-06 13:53 | W.PN.CRS1 ---
Today's Communication / Plan
-
Increased pain medication
Okay to start Eliquis
Keep on clears
Assessment/Plan
-
84 yo male with a history of metastatic prostate cancer (tx XRT, lupron, xgeva, xtandi, cirrhosis and prior ETOH who initially presented for colonoscopy on 04/02 with partially obstructing mass of the descending colon noted with bowel perforation
during procedure taken for emergent surgery.
POD #4 exploratory laparotomy with total abdominal colectomy and diverting loop ileostomy
Afebrile
Mild hypotension off pressors
H/H stable s/p one unit of blood on 04/04
Pain present but decreased from previous with analgesic adjustments
Echo with LV thrombus
Acute anemia secondary to expected procedural losses and hemodilution; transfuse one unit this am. Previously received platelets x2 and 1 unit of PRBC's on 04/02.
-- Continue clear liquids. Patient is not hungry.
-- Okay to restart Eliquis. Cardiology and hospitalist notified. I have increased Roxicodone given pain.
--Follow CBC's
--Multimodal analgesics: tylenol/oxycodone/dilaudid
--Stoma nurse consult
--Middle School Teacher, cushion filler, GI and hospitalist following as well
Subjective Data
Procedure
04/02/24- 1) exploratory laparotomy 2) abdominal colectomy with ileostomy
Subjective Data
Date of Service: April 06, 2024
Patient states he has no nausea or vomiting. He has pain about a 5-6 out of 10. He is tolerating clears but he states he is not hungry at all. He states he feels 'weak'.
Objective Data
-
Vital Signs
Temp Pulse Resp BP Pulse Ox
97.5 F 96 21 96/59 97
04/06/24 08:12 04/06/24 12:15 04/06/24 12:15 04/06/24 12:15 04/06/24 12:15
Intake & Output
04/05/24 04/06/24 04/07/24
06:59 06:59 06:59
Intake Total 3910.0 / 4042.5 2176.4 / 2183.9 517.5 / 517.5
Output Total 1465 / 1465 2009 / 2009
Balance 2445.0 / 2577.5 166.4 / 173.9 517.5 / 517.5
Intake:
Oral fluids 370 / 370 480 / 480
IV fluids (Total) 3240.0 / 3372.5 1286.4 / 1293.9 37.5 / 37.5
D5/0.9% Sodium Chloride 1,000 2625 / 2750 1075 / 1075
ml @ 75 mls/hr IV .[id number]
Rx#:[id number]
Levo 615.0 / 622.5 211.4 / 218.9 37.5 / 37.5
IV piggybacks 420.0 / 420.0 520.0 / 520.0
Blood Product Amount Infused ( 250 / 250
mL)
Packed Rbc Leukoreduced Unit 250 / 250
[id number]
Output:
Liquid stool amount 330 / 330 210 / 210
Ileostomy 330 / 330 210 / 210
Urine, Hicks 1135 / 1135 850 / 850
Urine, Voided 950 / 950
Lab Results
04/06/24 03:35
04/06/24 03:35
Physical Exam
-
General: No Acute Distress and AOx3
Abdomen: Soft, Non Distended and Non Tender
--- NOTE | 2024-04-06 14:30 | WOUNDNOTE ---
WON RN NOTE: Appliance changed and teaching done, Lewis and daughter Luly at bedside. Extensive teaching done with patient and family, answered all questions. Stoma pink, top part budded, less budded distally, red rubber bridge intact.
Peristomal skin intact. Midline incisional dressing changed, confirmed with TYSON Crowell. Eric and olivier intact, dry dressing applied. Appliance with moderate amt of brown liquid stool. Patient very concerned with leakage, states 'My brother
had an ostomy and had to change his pouch several times a day due to leakage.' Support and encouragement given, high output 2 3/4' 2 piece applied. Had patient open and close tail end of HO pouch and drainable pouch, also demonstrated
capability. Will determine wear time of HP appliance and if successful will bring additional supplies with a night time drainage system. Nurse made aware of the above and will follow.
--- NOTE | 2024-04-06 15:11 | CM ---
CM following re: discharge planning.
Reviewed pty's chart, met with pt. Pt stated his family just left.
PT and OT evaluations noted - SNF level of care recommended. pt is aware, expressed his agreement and pt requested [facility]F.
A referral to [facility] made.
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
D/C plan: [facility] SNF when medically stable.
CM will follow to assist pt with discharge to [facility].
--- NOTE | 2024-04-06 15:17 | PTCARENOTE ---
Pt received in bed @ 0700. PRN Tylenol and Roxicodone administered for pain. Generalized weakness. Able to ambulate with minimal assistance to chair. Ambulated in room with physical therapy to window and door and back to chair. SaO2 97% on 3L NC.
Lungs diminished. 700ml witnessed in incentive spirometer. Hypoactive bowel sounds with poor appetite. Illeostomy with large brown green liquid output. C nurse with bedside education on ostomy care to patient and family, understanding
demonstrated. Voiding into urinal with episode of incontinent attempting to use. Sacral foam in place. Midline abdominal dressing with old blood drainage. Levophed gtt with goal of MAP > 65; turned off @ 11:00 and remains off.
[2024-04-06] MEDS: ELIQUIS 5 MG PO (20:08)
[2024-04-06] MEDS: DILAUDID 0.5 MG IV (22:55)
[2024-04-07] VITALS (63 sets, daily range): BP systolic 80–151; BP diastolic 39–96; PULSE 87; BMI 21.4
--- NOTE | 2024-04-07 00:04 | PTCARENOTE ---
Pt med with dilaudid when roxicodone ineffective. Pt sleeping afterwards. MAP 55. Levophed restarted at 2mcg. Will continue to monitor.
[2024-04-07] MEDS: NSS 500 IV (03:56)
[2024-04-07 04:52] LABS: % Basophils 0.3 % (0-2); % Eosinophils 4.6 % (0-6); % Monocytes 13.6 % (1.7-9.3); % Neutrophils 69.5 % (42.2-75.2); Absolute Eosinophils 0.4 10^3/uL (0-0.7); Absolute Immature Granulocytes 0.1 10^3/uL (0-0.05); Absolute Lymphocytes 1.1 10^3/uL (1.2-3.4); Absolute Monocytes 1.3 10^3/uL (0.1-0.6); Absolute Neutrophils 6.7 10^3/uL (1.4-6.5); Hematocrit 24.6 % (39.0-52.0); Hemoglobin 8.6 g/dL (13.0-18.0); Mean Corpuscular Hgb 31.2 pg (27.0-31.0); Mean Corpuscular Volume 89.1 fL (80.0-94.0); Mean Platelet Volume 10.2 fL (7.4-10.4); Nucleated Red Blood Cells % 0 % (-); Platelet Count 108 10^3/uL (130-400); Red Blood Cell Count 2.76 10^6/uL (4.70-6.10); Red Cell Dist. Width 15.8 % (11.5-14.5); White Blood Cell Count 9.6 10^3/uL (4.8-10.8)
[2024-04-07 05:10] LABS: Blood Urea Nitrogen 27 mg/dl (9-20); Calcium 7.6 mg/dl (8.4-10.2); Carbon Dioxide 21 mmol/L (22-30); Chloride 110 mmol/L (98-107); Estimated Creatinine Clearance 39 ml/min; Glucose 117 mg/dl (70-99); Potassium 3.7 mmol/L (3.5-5.1); Sodium 138 mmol/L (135-145)
[2024-04-07] MEDS: ZOSYN 50 IV ×3 (05:10→17:03)
--- NOTE | 2024-04-07 05:37 | PTCARENOTE ---
Levophed titrated to 6mg. Discussed with house [employer] that MAP still < 65. 500 NSS bolus over 6 hours ordered. Pt had been sleeping soundly with lower BPs. Pt awake and BP now 138/68 with MAP 89.
[2024-04-07] MEDS: LEVOPHED 250 IV (05:47)
--- NOTE | 2024-04-07 07:37 | PTCARENOTE ---
On walking rounds pt laying side ways in bed on Bipap , corley in place. Incont stool . Confused at this time NSS@125 hr. Pt now sleeping no distress
--- NOTE | 2024-04-07 07:42 | PTCARENOTE ---
Pt AAOx 3, ileostomy in place with brown stool. using urinal 200 out ,Pt on 4l O2 Midline incision CDI. Leco titrated for MAP. Now on 5cg
[2024-04-07] MEDS: ELIQUIS 5 MG PO ×2 (08:11→22:34)
[2024-04-07] MEDS: PROTONIX 40 MG PO (08:12)
--- NOTE | 2024-04-07 09:39 | W.PN.HOSP.TC ---
Today's Communication/Plan
-
IV antibiotics. Pressors.
Assessment / Plan
Assessment / Plan
Physical Exam
General: No Apparent Distress and Other (frail appearing)
HEENT: PERRLA, off NG, nasal O2
Respiratory: Clear, Wheezes and Decreased Breath Sounds
Cardiac: S1/S2 and Regular Rhythm
GI: Soft and Non Tender, + ileostomy and postop findings.
Musculoskeletal: No Edema
Skin: Warm and Dry; No Rash
Psych: Calm
A/P:
Mr. 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
# Acute bowel perforation post colonoscopy
s/p exploratory laparotomy, abdominal colectomy with loop ileostomy by Dr Regalado on 04/02 for perforated cecum, intestinal malrotation, splenic flexure mass, small bowel adhesion
continue post op care
cont IV Zosyn
WBC normalized
OR culture no growth
Appreciate colorectal Surgery help
Clear liquid diet--> advance to full liquid diet today
Pain medications
# LV Thrombus
Possible chronic in LV
Goal to start Systemic AC
Eliquis restarted on 04/06 evening
New cardiomyopathy--> acute HFrEF with EF 40%:
Follow-up echo as outpatient to reassess left ventricular function and thrombus
Plan to initiate Coreg once off pressors and GDMT as blood pressure allows
Cardiology following
# Shock
Multifactorial hypovolemic/ hemorrhagic / septic shock/cardiogenic
Echo showed LVEF 40%, Last echo in 2021 showed normal LVEF.
S/P 3 units total of RBCs transfusion, IVF, IV Abx and we controlled source of bleeding ( tumor is out)
Will wean off Levophed as possible.
#Acute blood loss anemia
He presented with bright red blood per rectum and blood loss during the surgery
Status post blood transfusion and platelets
Goal to keep HGB around 8 ( hx of cirrhosis)
Hemoglobin today at 8.6
# Operative and post op intubation
Extubated on 04/03
# Hx Radiation Proctitis
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
Hx of Secondary esophageal varices
Back to oral PPI
# Chronic thrombocytopenia/ pancytopenia
Platelet count 108 today
Continue to monitor
# HANY
Creatinine on admission 1.4, coming down to 1.3 today
No flank pain
# Hx Metastatic Prostate CA
Primary oncologist Dr Blackwood and Dr Quinteros
-patient on Lupron, Xgeva, Xtandi, holding for now
Updated Dr Blackwood by Dr. Bang.
Hx Alcoholic Liver cirrhosis
Hx of ascites s/p paracentesis
Thrombocytopenia
-held HOME HOSPICE AIDE lasix/spironolactone in setting of bleeding
# Hypokalemia, replace
# Hypocalcemia, replace
#GERD
- PPI
DVT PPx on Eliquis
CODE STATUS:
DNR
Total time spent to see the patient on the floor, examine the patient, review data and lab results, discuss treatment plan with patient and family, nursing staff around 55 minutes
Anticipated Discharge: > 48 hours
Subjective/Interval History
-
Date of Service: April 07, 2024
Patient feels better overall. No nausea or vomiting. Abdominal pain on and off but improved. Decreased appetite.
Objective Data
-
Labs:
Laboratory Results
04/07/24
04:28
WBC 9.6
Hgb 8.6 L
Hct 24.6 L
Plt Count 108 L D
Sodium 138
Potassium 3.7
Chloride 110 H
Carbon Dioxide 21 L
BUN 27 H
Creatinine 1.3
Glucose 117 H
Calcium 7.6 L
Vital Signs:
Vital Signs
Temp Pulse Resp BP Pulse Ox
97.9 F 88 18 109/58 99
04/07/24 08:26 04/07/24 08:30 04/07/24 08:30 04/07/24 08:30 04/07/24 08:30
I&O
04/06/24 04/07/24 04/08/24
06:59 06:59 06:59
Intake Total 2176.4 / 2183.9 1897.5 / 1897.5
Output Total 2009 275 / 275 200 / 200
Balance 166.4 / 173.9 1622.5 / 1622.5 -200 / -200
[2024-04-07] MEDS: ROXICODONE 10 MG PO ×3 (10:19→20:23)
--- NOTE | 2024-04-07 10:30 | W.PN.CARDCBS ---
Today's Communication / Plan
-
-Presented with rectal bleeding. Found to have partially obstructing mass on colonoscopy. Severe pain post procedure, xray findings concerning for free air. Found to have perforation of the cecum during exploratory laparotomy, and underwent
colectomy with ileostomy 04/02/2024.
Cont post op care. Surgery to advance diet
Continue attempts to wean off IV Levophed. HR and bp stable.
New CM with EF 40% and and LV thrombus.
-Eliquis started PM Apr 05 2024 as ok for surgery for LV thrombus
-CM to assess the cost of Eliquis 5mg BID.
-Follow up echo as OP to reassess LV function and thrombus.
-Once off pressors and if bp remains stable, consider initiation of Coreg
-GDMT as bp will allow
Impression / Plan
-
.
PCP: Dr. Patiño
Tattoo Technician: None, follows w/ Dr. King
Impression:
Presented with rectal bleeding
Colonic mass, perforated cecum s/p colectomy and ileostomy
Anemia
- Hbg 8.9 04/03 now 7.4 04/04, 8.4 04/05, 8.6 on 04/06
Thrombocytopenia
- Plt 66 04/05 (prev 118; history of low plt during this admission)
Cardiomyopathy, EF 40% by echo 04/03
LV thrombus
Metastatic prostate cancer
h/o XRT, on lupron, Xgeva, Xtandi
Hx cirrhosis
GERD with Paulino's Esophagus
HTN
Hx ETOH abuse
Echo 01/09/2022: EF 60 to 65%, trace MR
Echo 04/03/2024: EF 40%, akinesis of the distal myocardial segments with apical dyskinesis with aneurysmal formation with small LV thrombus present at the apex, approximately 1.0 cm, trivial anterior pericardial effusion, mildly dilated aortic root,
measuring 4.4 cm at sinus of Valsalva
Plan:
-Presented with rectal bleeding. Found to have partially obstructing mass on colonoscopy. Severe pain post procedure, xray findings concerning for free air. Found to have perforation of the cecum during exploratory laparotomy, and underwent
colectomy with ileostomy 04/02/2024.
Cont post op care. Surgery to advance diet
Continue attempts to wean off IV Levophed. HR and bp stable.
New CM with EF 40% and and LV thrombus.
-Eliquis started PM Apr 05 2024 as ok for surgery for LV thrombus
-CM to assess the cost of Eliquis 5mg BID.
-Follow up echo as OP to reassess LV function and thrombus.
-Once off pressors and if bp remains stable, consider initiation of Coreg
-GDMT as bp will allow
Post op anemia. Hemoglobin overall stable. Hb 8.6 Apr 07 and . He received 1 unit PRBCs, 2 units platelets
Remains sinus
He wants to follow with Dr King after d/c.
Discussed with nursing.
HPI: Michael is an 84 year old male with PMH of metastatic prostate cancer, cirrhosis, GERD, HTN, Paulino's esophagus, and prior ETOH abuse who presented to [facility] for evaluation of rectal bleeding. He underwent colonoscopy 04/02 for evaluation and was
noted to have a partially obstructing mass in the descending colon. Post-procedurally, he was noted to have abdominal pain that continued to worsen and abdominal xray showed evidence of free air. He ultimately was seen by colorectal surgery and
underwent exploratory laparotomy and was found to have perforation of the cecum and underwent colectomy and ileostomy. Given shock and persistent hypotension, echo was ordered to assess EF. Echo 04/03 showed EF 40% with small, 1.0 cm LV thrombus.
Cardiology consulted for evaluation. Patient reports he has had chronic SOB for 5 years that has been unchanged. He denies any chest pain, dizziness, lightheadedness, or SOB. Currently only complaints are abdominal discomfort related to recent
surgery as well as some soreness in his mouth, likely from intubation.
Progress Note - Tattoo Technician
Subjective
Date of Service: April 07, 2024
Pt seen and examined. No chest pain or shortness of breath.
Objective
Labs:
04/07/24 04:28
04/07/24 04:28
Labs
Hgb 8.6 g/dL (13.0-18.0) L 04/07/24 04:28
Hct 24.6 % (39.0-52.0) L 04/07/24 04:28
Plt Count 108 10^3/uL (130-400) L D 04/07/24 04:28
PT 17.3 Sec (11.4-14.6) H 04/04/24 04:13
INR 1.43 04/04/24 04:13
APTT 35.5 Sec (23.4-35.0) H 04/02/24 21:03
Sodium 138 mmol/L (135-145) 04/07/24 04:28
Potassium 3.7 mmol/L (3.5-5.1) 04/07/24 04:28
BUN 27 mg/dl (9-20) H 04/07/24 04:28
Creatinine 1.3 mg/dL (0.7-1.3) 04/07/24 04:28
Glucose 117 mg/dl (70-99) H 04/07/24 04:28
Vital Signs and I&O:
Vital Signs
Temp Pulse Resp BP Pulse Ox
97.9 F 88 18 109/58 99
04/07/24 08:26 04/07/24 08:30 04/07/24 08:30 04/07/24 08:30 04/07/24 08:30
Vital Signs
Temp Pulse Resp BP Pulse Ox
97.9 F 88 18 109/58 99
04/07/24 08:26 04/07/24 08:30 04/07/24 08:30 04/07/24 08:30 04/07/24 08:30
Intake & Output
04/05/24 04/06/24 04/07/24 10/23/24
06:59 06:59 06:59 06:59
Intake Total 3910.0 / 4042.5 2176.4 / 2183.9 1897.5 / 1897.5
Output Total 1465 / 1465 2009 275 / 275 275 / 275
Balance 2445.0 / 2577.5 166.4 / 173.9 1622.5 / 1622.5 -275 / -275
Physical Exam
Physical Exam
General: No acute distress, AAOX3
Neck: Negative JVD
Heart: Regular, Negative S3 positive S1/S2, Negative S4, No murmur
Lungs: CTA b/l, negative wheezes/rales/rhonchi
Abd: Positive BS, NT/ND, neg rebound/rigidity/guarding
Ext: Negative cyanosis/clubbing/edema
Neuro: nonfocal
--- NOTE | 2024-04-07 12:36 | CM ---
CM following re: discharge planning.
Reviewed pty's chart, met with pt.
PT and OT continue to recommend SNF level of care.
[facility]F offered a bed when pt is medically stable.
Pt lives with spouse at [facility] and pt described himself as independent in all areas [employer].
D/C plan: [facility] when medically stable.
CM will follow to assist pt with discharge to [facility].
--- NOTE | 2024-04-07 14:06 | W.PN.CRS1 ---
Today's Communication / Plan
-
Full liquid diet
Assessment/Plan
-
84 yo male with a history of metastatic prostate cancer (tx XRT, lupron, xgeva, xtandi, cirrhosis and prior ETOH who initially presented for colonoscopy on 04/02 with partially obstructing mass of the descending colon noted with bowel perforation
during procedure taken for emergent surgery.
POD #5 exploratory laparotomy with total abdominal colectomy and diverting loop ileostomy
Afebrile
Mild hypotension- on levophed
H/H stable s/p one unit of blood on 04/04
Pain present but decreased from previous with analgesic adjustments
Echo with LV thrombus
Acute anemia secondary to expected procedural losses and hemodilution; transfuse one unit this am. Previously received platelets x2 and 1 unit of PRBC's on 04/02.
-- Advance to full liquid diet with Ensure. Will need to monitor his nutrition given he has only been on clears or n.p.o. over the last 5 days.
-- Eliquis restarted on 04/06
--Follow CBC's
--Multimodal analgesics: tylenol/oxycodone/dilaudid
--Stoma nurse consult
--Judge, trauma doctor, GI and hospitalist following as well
Subjective Data
Procedure
04/02/24- 1) exploratory laparotomy 2) abdominal colectomy with ileostomy
Subjective Data
Date of Service: April 07, 2024
Peripheral patient states he feels better. He has no nausea or vomiting. He states he still has absolutely no appetite. His pain is still present but better today.
Objective Data
-
Vital Signs
Temp Pulse Resp BP Pulse Ox
97.7 F 97 26 111/63 97
04/07/24 12:08 04/07/24 11:00 04/07/24 11:00 04/07/24 11:00 04/07/24 09:30
Intake & Output
04/06/24 04/07/24 04/08/24
06:59 06:59 06:59
Intake Total 2176.4 / 2183.9 1897.5 / 1897.5 50 / 50
Output Total 2009 275 / 275 275 / 275
Balance 166.4 / 173.9 1622.5 / 1622.5 -225 / -225
Intake:
Oral fluids 370 / 370 1160 / 1160
IV fluids (Total) 1286.4 / 1293.9 137.5 / 137.5
D5/0.9% Sodium Chloride 1,000 1075 / 1075
ml @ 75 mls/hr IV .[id number]
Rx#:[id number]
Levo 211.4 / 218.9 137.5 / 137.5
IV piggybacks 520.0 / 520.0 600 / 600 50 / 50
Output:
Liquid stool amount 210 / 210 75 / 75
Ileostomy 210 / 210 75 / 75
Urine, Hicks 850 / 850
Urine, Voided 950 / 950 200 / 200 275 / 275
Other:
How many times incontinent 1
MODERATE amount urine
Lab Results
04/07/24 04:28
04/07/24 04:28
Physical Exam
-
General: No Acute Distress and AOx3
Abdomen: Soft, Non Distended, Tender (Mild around incision) and Other (Ileostomy warm pink with function)
Skin: Warm and Dry
--- NOTE | 2024-04-07 15:32 | W.PN.GI.CBS2 ---
Today's Communication / Plan
-
Added ensure BID
Encouraged PO intake
Results of pathology confirming adenoCa of the colon discussed with pt.
Will follow with you
Assessment / Plan
-
Michael is a 84yo M who presents with hx prostate CA with prior radiation with current therapy( Leuprolide, Xgeva, Xtandi) with mets, squamous cell CA, CKD, Ecoli sepsis/diverticulitis, AI, prior GI bleeding, prior noted AVM radiation proctitis,
chronic diarrhea with Imodium use, cirrhosis with grade I EV on EGD 2021, hx paracentesis several years ago, effusion with prior thoracentesis, humphries's with current admission to ER with rectal bleeding and increased stool frequency with use of
Imodium and need for depends. He has been recommended colonoscopy Dr. Carreon with prior abnormal CT 2021 with concern for soft tissue nodularity in splenic flexure. 04/02 s/p colon with partially obs mass unable to pass, post x ray with small
amount free air, s/p exp lap ileostomy for cecal perf, malrotation and splenic flex mass, SB adhesions
04/02 colonoscopy - large internal hemorrhoids, lax sphincter tone, large partially obstructing mass descending colon unable to reach past transverse colon diverticulosis
04/02 abd X ray-Findings suspicious for small volume free air.
04/02 s/p exp lap, colectomy with ileostomy, perforation of cecum, intestinal malrotation, splenic flexure mass with tattoo, SB adhesion at rectosigmoid Junction, oozing during surgery
) exploratory laparotomy 2) abdominal colectomy with ileostomy
Impression
-Colon cancer and perforation s/p colonoscopy on 04/02
-LV thrombus
-hx metastatic prostate CA to bone -- prior radiation current Leuprolide, Xgeva, Xtandi
-cirrhosis with hx grade I EV 2021, paracentesis 2021, no HE, AFP 1.23 12/2023
-anemia
-hx prior noted colonic angioectasia c/w radiation proctitis
-CT 2021 with 1.5 cm soft tissue nodule along splenic flexure adherent stool vs polyp
-thrombocytopenia
-squamous cell CA
-hx GI bleed
-colon polyp
-humphries's
-Ecoli sepsis diverticulitis
-pleural effusion with prior thoracentesis
-Prior ETOH abuse quit 2-3 years ago
-GERD
-CKD
-aortic insufficiency
Recommendation
- Advanced to FLD by CRC
- Added ensure live chocolate BID to improve nutrition
- Pathology from colonoscopy returned confirming invasive adenoCa of the colon. Report given to the patient. Still awaiting results from surgical pathology. Will relay info to Dr Blackwood his oncologist
- OOB ambulate
Will follow with you
Subjective
Subjective
Date of Service: April 07, 2024
He has no appetite. Drinks ensure chocolate at home. Advanced to FLD today by colorectal surgery. Walked around room today and worked with PT. Denies nausea/vomiting.
Objective
Data Reviewed
Laboratory Data:
Laboratory Results
04/07/24 04:28
04/07/24 04:28
Laboratory Results
PT 17.3 Sec (11.4-14.6) H 04/04/24 04:13
INR 1.43 04/04/24 04:13
APTT 35.5 Sec (23.4-35.0) H 04/02/24 21:03
Magnesium 1.7 mg/dl (1.6-2.3) 04/06/24 03:35
Total Bilirubin 2.9 mg/dl (0.2-1.3) H D 04/04/24 04:13
AST 35 U/L (17-59) 04/04/24 04:13
ALT 15 U/L (0-50) 04/04/24 04:13
Alkaline Phosphatase < 20 U/L (38-126) L 04/04/24 04:13
Vital Signs and I&O:
Vital Signs
Temp Pulse Resp BP Pulse Ox
97.7 F 102 26 122/70 99
04/07/24 12:08 04/07/24 15:00 04/07/24 15:00 04/07/24 15:00 04/07/24 14:30
I&O
04/06/24 04/07/24 04/08/24
06:59 06:59 06:59
Intake Total 2176.4 / 2183.9 1897.5 / 1897.5 50 / 50
Output Total 2009 275 / 275 275 / 275
Balance 166.4 / 173.9 1622.5 / 1622.5 -225 / -225
Physical Exam
Physical Exam
GEN: No acute distress, conversant, pleasant
HEENT: anicteric, extraocular movements intact, clear oropharynx without exudates
GI: soft, non-distended, mildly tender to palpation, ostomy with dark brown output, dressings c/d/i normal active bowel sounds, no hepatosplenomegaly
EXT: warm, well perfused, trace edema bilaterally
NEURO: AAOx3, non-focal
--- NOTE | 2024-04-07 18:31 | PTCARENOTE ---
Pt Bp dropped , recycled still map 59 . Levo restarted at 2mcg
--- NOTE | 2024-04-07 21:30 | PTCARENOTE ---
Resumed care of pt his evening. Received pt on levo gtt infusing at 3 mcg/min via right midline. Pt is A&Ox3, can move all 4 extremities, and can make needs known. Pt is NSR on tele monitor, has no edema, and palpable pedal pulses. Pt on 4L of O2
and is satting at 95%. On auscultation pt lungs sound diminished TO. Pt tolerating full liquid diet. Pt's BS are hypoactive. Abdomen is tender and tender to palp. Ileostomy draining loose green BM. Midline abdominal surgical dressing C/D/I.
[2024-04-08] VITALS (51 sets, daily range): BP systolic 86–139; BP diastolic 41–80; PULSE 104–105; O2SAT 96–97; BMI 21.4
[2024-04-08] MEDS: ZOSYN 50 IV ×4 (00:21→17:16)
[2024-04-08] MEDS: ROXICODONE 10 MG PO ×5 (00:35→21:19)
[2024-04-08 06:55] LABS: % Basophils 0.2 % (0-2); % Immature Granulocytes 1.9 % (0-0.5); % Lymphocytes 9.3 % (20.5-51.1); % Monocytes 11.6 % (1.7-9.3); Absolute Eosinophils 0.4 10^3/uL (0-0.7); Absolute Immature Granulocytes 0.2 10^3/uL (0-0.05); Absolute Lymphocytes 0.8 10^3/uL (1.2-3.4); Absolute Neutrophils 6.4 10^3/uL (1.4-6.5); Hematocrit 25.5 % (39.0-52.0); Hemoglobin 8.9 g/dL (13.0-18.0); Mean Corp Hgb Conc. 34.9 g/dL (33.0-37.0); Mean Corpuscular Hgb 32.1 pg (27.0-31.0); Mean Corpuscular Volume 92.1 fL (80.0-94.0); Mean Platelet Volume 10.2 fL (7.4-10.4); Nucleated Red Blood Cells % 0 % (-); Platelet Count 114 10^3/uL (130-400); Red Blood Cell Count 2.77 10^6/uL (4.70-6.10); Red Cell Dist. Width 15.5 % (11.5-14.5); White Blood Cell Count 8.9 10^3/uL (4.8-10.8)
[2024-04-08 07:55] LABS: Blood Urea Nitrogen 27 mg/dl (9-20); Calcium 7.5 mg/dl (8.4-10.2); Carbon Dioxide 19 mmol/L (22-30); Chloride 108 mmol/L (98-107); Estimated Creatinine Clearance 46 ml/min; Glucose 120 mg/dl (70-99); Potassium 3.7 mmol/L (3.5-5.1); Sodium 137 mmol/L (135-145); eGFR > 60.00
[2024-04-08] MEDS: PROTONIX 40 MG PO (07:57)
[2024-04-08] MEDS: ELIQUIS 5 MG PO ×2 (07:57→19:54)
--- NOTE | 2024-04-08 08:08 | W.PN.CARDCBS ---
Today's Communication / Plan
-
Wean IV pressor
Eliquis, cont
Eventual Coreg if bp can tolerate once off pressor
Impression / Plan
-
.
PCP: Dr. Patiño
Rouge Sifter: None, follows w/ Dr. King
Impression:
Presented with rectal bleeding
Colonic mass, perforated cecum s/p colectomy and ileostomy
Anemia
- Hbg 8.9 04/03 now 7.4 04/04, 8.4 04/05, 8.6 on 04/06
Thrombocytopenia
- Plt 66 04/05 (prev 118; history of low plt during this admission)
Cardiomyopathy, EF 40% by echo 04/03
LV thrombus
Metastatic prostate cancer
h/o XRT, on lupron, Xgeva, Xtandi
Hx cirrhosis
GERD with Paulino's Esophagus
HTN
Hx ETOH abuse
Echo 01/09/2022: EF 60 to 65%, trace MR
Echo 04/03/2024: EF 40%, akinesis of the distal myocardial segments with apical dyskinesis with aneurysmal formation with small LV thrombus present at the apex, approximately 1.0 cm, trivial anterior pericardial effusion, mildly dilated aortic root,
measuring 4.4 cm at sinus of Valsalva
Plan:
-Presented with rectal bleeding. Found to have partially obstructing mass on colonoscopy. Severe pain post procedure, xray findings concerning for free air. Found to have perforation of the cecum during exploratory laparotomy, and underwent
colectomy with ileostomy 04/02/2024.
Cont post op care. Taking POs
Continue attempts to wean off IV Levophed. HR and bp stable. IV Levo resumed last 24 hrs.
New CM with EF 40% and and LV thrombus.
-Eliquis started PM Apr 05 2024 as ok for surgery for LV thrombus, pt understands this is off-label use and would like to continue over coumadin.
-CM to assess the cost of Eliquis 5mg BID.
-Follow up echo as OP to reassess LV function and thrombus.
-Once off pressors and if bp remains stable, consider initiation of Coreg
-GDMT as bp will allow
Post op anemia. Hemoglobin overall stable. Hb 8.9 on Apr 08, 8.6 Apr 07 and . He received 1 unit PRBCs, 2 units platelets
Remains sinus
He wants to follow with Dr King after d/c.
Discussed with nursing and primary service.
CCT: 31 min
HPI: Michael is an 84 year old male with PMH of metastatic prostate cancer, cirrhosis, GERD, HTN, Paulino's esophagus, and prior ETOH abuse who presented to [facility] for evaluation of rectal bleeding. He underwent colonoscopy 04/02 for evaluation and was
noted to have a partially obstructing mass in the descending colon. Post-procedurally, he was noted to have abdominal pain that continued to worsen and abdominal xray showed evidence of free air. He ultimately was seen by colorectal surgery and
underwent exploratory laparotomy and was found to have perforation of the cecum and underwent colectomy and ileostomy. Given shock and persistent hypotension, echo was ordered to assess EF. Echo 04/03 showed EF 40% with small, 1.0 cm LV thrombus.
Cardiology consulted for evaluation. Patient reports he has had chronic SOB for 5 years that has been unchanged. He denies any chest pain, dizziness, lightheadedness, or SOB. Currently only complaints are abdominal discomfort related to recent
surgery as well as some soreness in his mouth, likely from intubation.
Progress Note - Rouge Sifter
Subjective
Date of Service: April 08, 2024
Pt seen and examined. No complaints. No chest pain or shortness of breath.
Objective
Labs:
04/08/24 06:30
04/08/24 06:30
Labs
Hgb 8.9 g/dL (13.0-18.0) L 04/08/24 06:30
Hct 25.5 % (39.0-52.0) L 04/08/24 06:30
Plt Count 114 10^3/uL (130-400) L 04/08/24 06:30
PT 17.3 Sec (11.4-14.6) H 04/04/24 04:13
INR 1.43 04/04/24 04:13
APTT 35.5 Sec (23.4-35.0) H 04/02/24 21:03
Sodium 137 mmol/L (135-145) 04/08/24 06:30
Potassium 3.7 mmol/L (3.5-5.1) 04/08/24 06:30
BUN 27 mg/dl (9-20) H 04/08/24 06:30
Creatinine 1.1 mg/dL (0.7-1.3) 04/08/24 06:30
Glucose 120 mg/dl (70-99) H 04/08/24 06:30
Vital Signs and I&O:
Vital Signs
Temp Pulse Resp BP Pulse Ox
97.9 F 83 18 104/48 97
04/08/24 03:24 04/08/24 06:00 04/08/24 06:00 04/08/24 06:00 04/08/24 06:00
Vital Signs
Temp Pulse Resp BP Pulse Ox
97.9 F 83 18 104/48 97
04/08/24 03:24 04/08/24 06:00 04/08/24 06:00 04/08/24 06:00 04/08/24 06:00
Intake & Output
04/06/24 04/07/24 04/08/24 04/09/24
06:59 06:59 06:59 06:59
Intake Total 2176.4 / 2183.9 1897.5 / 1897.5 100 / 100
Output Total 2009 275 / 275 725 / 725
Balance 166.4 / 173.9 1622.5 / 1622.5 -625 / -625
Physical Exam
Physical Exam
General: No acute distress, AAOX3
Neck: Negative JVD
Heart: Regular, Negative S3 positive S1/S2, Negative S4, No murmur
Lungs: CTA b/l, negative wheezes/rales/rhonchi
Abd: Positive BS, NT/ND, neg rebound/rigidity/guarding
Ext: Negative cyanosis/clubbing/edema
Neuro: nonfocal
--- NOTE | 2024-04-08 09:00 | PTCARENOTE ---
Pt received in bed, c/o 12/24 ab pain, 10mg PO Lindsay given w/ good result. Pt PERRY, very weak. NSR on monitor. Levo @ 3mcg to maintain MAP > 65, will wean as tolerates. R midline intact. Levo moved to R midline, L FA dc'd, ecchymosis and leakage noted.
4L NC, sating 95%, LS diminished, occ weak cough noted. ADHIKARI. Ileostomy w/ liquid brown/greenish output. Hypoactive BS. Tolerating Full liquid diet. Using urinal. Protective foam on sacrum. Q2hr turns. Midline incision c/d/i. Colorectal MD at
bedside to assess.
--- NOTE | 2024-04-08 09:21 | W.PN.HOSP.TC ---
Today's Communication/Plan
-
IV antibiotics. Pressors.
Assessment / Plan
Assessment / Plan
Physical Exam
General: No Apparent Distress and Other (frail appearing)
HEENT: PERRLA, off NG, nasal O2
Respiratory: Clear, Wheezes and Decreased Breath Sounds
Cardiac: S1/S2 and Regular Rhythm
GI: Soft and Non Tender, + ileostomy and postop findings.
Musculoskeletal: No Edema
Skin: Warm and Dry; No Rash
Psych: Calm
A/P:
Mr. 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
# Acute bowel perforation post colonoscopy
s/p exploratory laparotomy, abdominal colectomy with loop ileostomy by Dr Regalado on 04/02 for perforated cecum, intestinal malrotation, splenic flexure mass, small bowel adhesion
continue post op care
cont IV Zosyn
WBC normalized
OR culture no growth
Appreciate colorectal Surgery help
Clear liquid diet--> advance to full liquid diet today
Pain medications
Discussed with patient that cancer will be managed by his oncologist Dr. Blackwood as outpatient once he is stable from this hospitalization and he is agreeable with this plan.
Discussed with cardiology today as well
#Hypotension
On minimal amount of pressors at this point so we will try to wean
# LV Thrombus
Possible chronic in LV
Goal to start Systemic AC
Eliquis restarted on 04/06 evening
New cardiomyopathy--> acute HFrEF with EF 40%:
Follow-up echo as outpatient to reassess left ventricular function and thrombus
Plan to initiate Coreg once off pressors and GDMT as blood pressure allows
Cardiology following
# Shock
Multifactorial hypovolemic/ hemorrhagic / septic shock/cardiogenic
Echo showed LVEF 40%, Last echo in 2021 showed normal LVEF.
S/P 3 units total of RBCs transfusion, IVF, IV Abx and we controlled source of bleeding ( tumor is out)
Will wean off Levophed as possible.
#Acute blood loss anemia
He presented with bright red blood per rectum and blood loss during the surgery
Status post blood transfusion and platelets
Goal to keep HGB around 8 ( hx of cirrhosis)
Hemoglobin today at 8.6
# Operative and post op intubation
Extubated on 04/03
# Hx Radiation Proctitis
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
Hx of Secondary esophageal varices
Back to oral PPI
# Chronic thrombocytopenia/ pancytopenia
Platelet count 108 today
Continue to monitor
# HANY
Creatinine on admission 1.4, coming down to 1.3 today
No flank pain
# Hx Metastatic Prostate CA
Primary oncologist Dr Blackwood and Dr Quinteros
-patient on Lupron, Xgeva, Xtandi, holding for now
Updated Dr Blackwood by Dr. Bang.
Hx Alcoholic Liver cirrhosis
Hx of ascites s/p paracentesis
Thrombocytopenia
-held SYSTEMS ADMINISTRATION ANALYST lasix/spironolactone in setting of bleeding
# Hypokalemia, replace
# Hypocalcemia, replace
#GERD
- PPI
DVT PPx on Eliquis
CODE STATUS:
DNR
Total time spent to see the patient on the floor, examine the patient, review data and lab results, discuss treatment plan with patient and family, nursing staff around 55 minutes
Anticipated Discharge: > 48 hours
Subjective/Interval History
-
Date of Service: April 08, 2024
Patient discomfort due to having to have an x-ray and also some postop pain.
Objective Data
-
Labs:
Laboratory Results
04/08/24
06:30
WBC 8.9
Hgb 8.9 L
Hct 25.5 L
Plt Count 114 L
Sodium 137
Potassium 3.7
Chloride 108 H
Carbon Dioxide 19 L
BUN 27 H
Creatinine 1.1
Glucose 120 H
Calcium 7.5 L
Vital Signs:
Vital Signs
Temp Pulse Resp BP Pulse Ox
98.6 F 83 18 104/48 97
04/08/24 07:00 04/08/24 06:00 04/08/24 06:00 04/08/24 06:00 04/08/24 06:00
I&O
04/07/24 04/08/24 04/09/24
06:59 06:59 06:59
Intake Total 1897.5 / 1897.5 100 / 100
Output Total 275 / 275 725 / 725
Balance 1622.5 / 1622.5 -625 / -625
--- NOTE | 2024-04-08 12:00 | PTCARENOTE ---
VSS. Pt down for Ab XRay. Pt's ileostomy leaking upon return to room, appliance and midline incision dressing changed.
--- NOTE | 2024-04-08 12:22 | W.PN.CRS1 ---
Today's Communication / Plan
-
abdominal xrays
remain on fulls
Assessment/Plan
-
84 yo male with a history of metastatic prostate cancer (tx XRT, lupron, xgeva, xtandi, cirrhosis and prior ETOH who initially presented for colonoscopy on 04/02 with partially obstructing mass of the descending colon noted with bowel perforation
during procedure taken for emergent surgery.
POD #6 exploratory laparotomy with total abdominal colectomy and diverting loop ileostomy
Afebrile
Mild hypotension- on levophed
H/H stable s/p one unit of blood on 04/04
Pain present but decreased from previous with analgesic adjustments
Echo with LV thrombus
Acute anemia secondary to expected procedural losses and hemodilution; transfuse one unit this am. Previously received platelets x2 and 1 unit of PRBC's on 04/02.
-- Continue fulls with Ensure (patient does not want to advance). Will need to monitor his nutrition given he has only been on clears or n.p.o. over the last 5 days.
-- Eliquis restarted on 04/06
--Follow CBC's
--Multimodal analgesics: tylenol/10mg oxycodone/Dilaudid PRN
--Stoma nurse consult - okay to change midline dressing
--Computer Drafter, steam crane operator, GI and hospitalist following as well
--Abdominal xrays ordered given pain/bloating
Subjective Data
Procedure
04/02/24- 1) exploratory laparotomy 2) abdominal colectomy with ileostomy
Subjective Data
Date of Service: April 08, 2024
Patient states he had an ostomy leak last night. He is still in quite a bit of pain. He feels bloated and is not that hungry.
Objective Data
-
Vital Signs
Temp Pulse Resp BP Pulse Ox
98.3 F 83 18 104/48 95
04/08/24 11:00 04/08/24 06:00 04/08/24 06:00 04/08/24 06:00 04/08/24 08:00
Intake & Output
04/07/24 04/08/24 04/09/24
06:59 06:59 06:59
Intake Total 1897.5 / 1897.5 100 / 100
Output Total 275 / 275 725 / 725 365 / 365
Balance 1622.5 / 1622.5 -625 / -625 -365 / -365
Intake:
Oral fluids 1160 / 1160
IV fluids (Total) 137.5 / 137.5
Levo 137.5 / 137.5
IV piggybacks 600 / 600 100 / 100
Output:
Liquid stool amount 75 / 75 300 / 300 240 / 240
Ileostomy 75 / 75 300 / 300 240 / 240
Urine, Voided 200 / 200 425 / 425 125 / 125
Other:
How many times incontinent 1
MODERATE amount urine
Lab Results
04/08/24 06:30
04/08/24 06:30
Physical Exam
-
General: No Acute Distress and AOx3
Abdomen: Soft, Distended (mild), Tender (around incision) and Other (ileostomy warm and pink with function)
Wound: Dressing in Place
--- NOTE | 2024-04-08 14:55 | CM ---
[facility] liaison called to request product number and exact product name for wafer and bags prior to patient returning to their facility. TYSON directed CM to wound care nursing for information, Carmel Ceja given contact information for liaison.
CM will continue to follow for discharge planning needs.
Plan; wound care for management of Ostomy.
--- NOTE | 2024-04-08 16:30 | PTCARENOTE ---
Levo titrated off. Otherwise, no change in assessment.
--- NOTE | 2024-04-08 16:42 | CM ---
Heavenly from [facility] requested call from wound care to her at [phone] re product number and wafer numbers to order for patient upon his return. CM left tt with wound care nurse.
--- NOTE | 2024-04-08 18:16 | W.PN.GI.CBS2 ---
Today's Communication / Plan
-
Increase ensure supplements to TID
Nutritional consult
Encourage OOB to chair and working with PT. He is agreeable if pain (post operative but also from bone mets) is more manageable
Assessment / Plan
-
Michael is a 84yo M who presents with hx prostate CA with prior radiation with current therapy( Leuprolide, Xgeva, Xtandi) with mets, squamous cell CA, CKD, Ecoli sepsis/diverticulitis, AI, prior GI bleeding, prior noted AVM radiation proctitis,
chronic diarrhea with Imodium use, cirrhosis with grade I EV on EGD 2021, hx paracentesis several years ago, effusion with prior thoracentesis, humphries's with current admission to ER with rectal bleeding and increased stool frequency with use of
Imodium and need for depends. He has been recommended colonoscopy Dr. Carreon with prior abnormal CT 2021 with concern for soft tissue nodularity in splenic flexure. 04/02 s/p colon with partially obs mass unable to pass, post x ray with small
amount free air, s/p exp lap ileostomy for cecal perf, malrotation and splenic flex mass, SB adhesions
04/02 colonoscopy - large internal hemorrhoids, lax sphincter tone, large partially obstructing mass descending colon unable to reach past transverse colon diverticulosis
04/02 abd X ray-Findings suspicious for small volume free air.
04/02 s/p exp lap, colectomy with ileostomy, perforation of cecum, intestinal malrotation, splenic flexure mass with tattoo, SB adhesion at rectosigmoid Junction, oozing during surgery
) exploratory laparotomy 2) abdominal colectomy with ileostomy
Impression
-Colon cancer and perforation s/p colonoscopy on 04/02
-LV thrombus
-hx metastatic prostate CA to bone -- prior radiation current Leuprolide, Xgeva, Xtandi
-cirrhosis with hx grade I EV 2021, paracentesis 2021, no HE, AFP 1.23 12/2023
-anemia
-hx prior noted colonic angioectasia c/w radiation proctitis
-CT 2021 with 1.5 cm soft tissue nodule along splenic flexure adherent stool vs polyp
-thrombocytopenia
-squamous cell CA
-hx GI bleed
-colon polyp
-humphries's
-Ecoli sepsis diverticulitis
-pleural effusion with prior thoracentesis
-Prior ETOH abuse quit 2-3 years ago
-GERD
-CKD
-aortic insufficiency
Recommendation
- C/w FLD increase ensure supplement to TID
- Hygiene Coordinator consult
- C/w abx
- Pathology from colonoscopy bx relayed to Dr Blackwood's office by myself
- C/w pain management.
- OOB ambulate Encouraged pt to work with PT
Subjective
Subjective
Date of Service: April 08, 2024
He complains of more diffuse pain today- abd, shoulders back and neck. His ostomy was not emptied last night and while asleep it leaked. This caused him stress and he had to wait to get cleaned up. He drank Ensure chocolate this AM. Not much
appetite otherwise. Denies nausea/vomiting. He does not feel up to working with PT today. Levo per RN down to 2
Objective
Data Reviewed
Laboratory Data:
Laboratory Results
04/08/24 06:30
04/08/24 06:30
Laboratory Results
PT 17.3 Sec (11.4-14.6) H 04/04/24 04:13
INR 1.43 04/04/24 04:13
APTT 35.5 Sec (23.4-35.0) H 04/02/24 21:03
Magnesium 1.7 mg/dl (1.6-2.3) 04/06/24 03:35
Total Bilirubin 2.9 mg/dl (0.2-1.3) H D 04/04/24 04:13
AST 35 U/L (17-59) 04/04/24 04:13
ALT 15 U/L (0-50) 04/04/24 04:13
Alkaline Phosphatase < 20 U/L (38-126) L 04/04/24 04:13
Vital Signs and I&O:
Vital Signs
Temp Pulse Resp BP Pulse Ox
98.3 F 103 21 122/71 96
04/08/24 11:00 04/08/24 14:44 04/08/24 14:44 04/08/24 14:44 04/08/24 14:44
I&O
04/07/24 04/08/24 04/09/24
06:59 06:59 06:59
Intake Total 1897.5 / 1897.5 100 / 100 530 / 530
Output Total 275 / 275 725 / 725 565 / 565
Balance 1622.5 / 1622.5 -625 / -625 -35 / -35
Physical Exam
Physical Exam
GEN: No acute distress, conversant, depressed affect
HEENT: anicteric, extraocular movements intact, clear oropharynx without exudates
GI: soft, non-distended, ostomy with dark brown output, dressings c/d/i TTP around that site normal active bowel sounds, no hepatosplenomegaly
EXT: warm, well perfused trace edema bilaterally
NEURO: AAOx3, non-focal
--- NOTE | 2024-04-08 20:00 | PTCARENOTE ---
Patient received in bed, AAOx3, NSR on monitor, blood pressure as documented. levophed gtt off. Palpable pulses throughout, no edema noted. Knee high teds/SCDs maintained. Lungs coarse bilaterally, pulse ox 92-93% on 4L + ADHIKARI, + tachypnea.
Abdomen soft, tender. Illeostomy draining liquid brown stool. Voiding jagjit urine. Midline incision clean dry and intact. Sacral foam maintained. Right upper arm midline flushed and patent. Call interiano within reach
[2024-04-09] VITALS (19 sets, daily range): BP systolic 90–115; BP diastolic 47–78; PULSE 95–97; O2SAT 95
[2024-04-09] MEDS: ZOSYN 50 IV ×4 (00:30→18:03)
[2024-04-09] MEDS: ROXICODONE 10 MG PO ×4 (01:20→19:31)
[2024-04-09 05:39] LABS: % Basophils 0.3 % (0-2); % Immature Granulocytes 1.6 % (0-0.5); % Lymphocytes 11.5 % (20.5-51.1); % Neutrophils 72.6 % (42.2-75.2); Absolute Eosinophils 0.2 10^3/uL (0-0.7); Absolute Immature Granulocytes 0.1 10^3/uL (0-0.05); Absolute Lymphocytes 0.9 10^3/uL (1.2-3.4); Absolute Monocytes 0.9 10^3/uL (0.1-0.6); Absolute Neutrophils 5.4 10^3/uL (1.4-6.5); Hematocrit 24.1 % (39.0-52.0); Hemoglobin 8.3 g/dL (13.0-18.0); Mean Corp Hgb Conc. 34.4 g/dL (33.0-37.0); Mean Corpuscular Hgb 31.1 pg (27.0-31.0); Mean Corpuscular Volume 90.3 fL (80.0-94.0); Mean Platelet Volume 10.2 fL (7.4-10.4); Nucleated Red Blood Cells % 0 % (-); Platelet Count 105 10^3/uL (130-400); Red Blood Cell Count 2.67 10^6/uL (4.70-6.10); Red Cell Dist. Width 15.8 % (11.5-14.5); White Blood Cell Count 7.4 10^3/uL (4.8-10.8)
[2024-04-09 05:58] LABS: Blood Urea Nitrogen 28 mg/dl (9-20); Calcium 7.4 mg/dl (8.4-10.2); Carbon Dioxide 18 mmol/L (22-30); Chloride 110 mmol/L (98-107); Estimated Creatinine Clearance 46 ml/min; Glucose 128 mg/dl (70-99); Potassium 3.6 mmol/L (3.5-5.1); Sodium 138 mmol/L (135-145); eGFR > 60.00
[2024-04-09] MEDS: ELIQUIS 5 MG PO ×2 (07:56→19:29)
[2024-04-09] MEDS: PROTONIX 40 MG PO (07:56)
[2024-04-09] MEDS: DICLOFENAC 1% TOPICAL GEL 4.5 GRAM TOPICAL (08:52)
--- NOTE | 2024-04-09 08:58 | W.PN.CARDCBS ---
Today's Communication / Plan
-
Blood pressure remains on the lower side off of IV Levophed.
Hypotension currently precludes addition of Coreg as part of GDMT for CM.
New CM with EF 40% and and LV thrombus.
-Eliquis started PM Apr 05 2024 as ok for surgery for LV thrombus, pt understands this is off-label use and would like to continue over coumadin.
-CM to assess the cost of Eliquis 5mg BID.
-Follow up echo as OP to reassess LV function and thrombus.
-GDMT as bp will allow
Impression / Plan
-
.
PCP: Dr. Patiño
Cycling Instructor: None, follows w/ Dr. King
Impression:
Presented with rectal bleeding
Colonic mass, perforated cecum s/p colectomy and ileostomy
Anemia
- Hbg 8.9 04/03 now 7.4 04/04, 8.4 04/05, 8.6 on 04/06
Thrombocytopenia
- Plt 66 04/05 (prev 118; history of low plt during this admission)
Cardiomyopathy, EF 40% by echo 04/03
LV thrombus
Metastatic prostate cancer
h/o XRT, on lupron, Xgeva, Xtandi
Hx cirrhosis
GERD with Paulino's Esophagus
HTN
Hx ETOH abuse
Echo 01/09/2022: EF 60 to 65%, trace MR
Echo 04/03/2024: EF 40%, akinesis of the distal myocardial segments with apical dyskinesis with aneurysmal formation with small LV thrombus present at the apex, approximately 1.0 cm, trivial anterior pericardial effusion, mildly dilated aortic root,
measuring 4.4 cm at sinus of Valsalva
Plan:
-Presented with rectal bleeding. Found to have partially obstructing mass on colonoscopy. Severe pain post procedure, xray findings concerning for free air. Found to have perforation of the cecum during exploratory laparotomy, and underwent
colectomy with ileostomy 04/02/2024.
Cont post op care. Tolerating POs
Cont pain control
Blood pressure remains on the lower side off of IV Levophed.
Hypotension currently precludes addition of Coreg as part of GDMT for CM.
New CM with EF 40% and and LV thrombus.
-Eliquis started PM Apr 05 2024 as ok for surgery for LV thrombus, pt understands this is off-label use and would like to continue over coumadin.
-CM to assess the cost of Eliquis 5mg BID.
-Follow up echo as OP to reassess LV function and thrombus.
-GDMT as bp will allow
Post op anemia. Hemoglobin overall stable. Hb 803 on Apr 09, 8.9 on Apr 08, 8.6 Apr 07 and . He received 1 unit PRBCs, 2 units platelets
Remains sinus
He wants to follow with Dr King after d/c.
CCT: 30 min
HPI: Michael is an 84 year old male with PMH of metastatic prostate cancer, cirrhosis, GERD, HTN, Paulino's esophagus, and prior ETOH abuse who presented to [facility] for evaluation of rectal bleeding. He underwent colonoscopy 04/02 for evaluation and was
noted to have a partially obstructing mass in the descending colon. Post-procedurally, he was noted to have abdominal pain that continued to worsen and abdominal xray showed evidence of free air. He ultimately was seen by colorectal surgery and
underwent exploratory laparotomy and was found to have perforation of the cecum and underwent colectomy and ileostomy. Given shock and persistent hypotension, echo was ordered to assess EF. Echo 04/03 showed EF 40% with small, 1.0 cm LV thrombus.
Cardiology consulted for evaluation. Patient reports he has had chronic SOB for 5 years that has been unchanged. He denies any chest pain, dizziness, lightheadedness, or SOB. Currently only complaints are abdominal discomfort related to recent
surgery as well as some soreness in his mouth, likely from intubation.
Progress Note - Cycling Instructor
Subjective
Date of Service: April 09, 2024
Pt seen and examined. Complaints of knee pain. No chest pain or shortness of breath.
Objective
Labs:
04/09/24 05:17
04/09/24 05:17
Labs
Hgb 8.3 g/dL (13.0-18.0) L 04/09/24 05:17
Hct 24.1 % (39.0-52.0) L 04/09/24 05:17
Plt Count 105 10^3/uL (130-400) L 04/09/24 05:17
PT 17.3 Sec (11.4-14.6) H 04/04/24 04:13
INR 1.43 04/04/24 04:13
APTT 35.5 Sec (23.4-35.0) H 04/02/24 21:03
Sodium 138 mmol/L (135-145) 04/09/24 05:17
Potassium 3.6 mmol/L (3.5-5.1) 04/09/24 05:17
BUN 28 mg/dl (9-20) H 04/09/24 05:17
Creatinine 1.1 mg/dL (0.7-1.3) 04/09/24 05:17
Glucose 128 mg/dl (70-99) H 04/09/24 05:17
Vital Signs and I&O:
Vital Signs
Temp Pulse Resp BP Pulse Ox
98.3 F 88 20 100/57 92
04/09/24 08:02 04/09/24 08:02 04/09/24 08:02 04/09/24 08:02 04/09/24 08:02
Vital Signs
Temp Pulse Resp BP Pulse Ox
98.3 F 88 20 100/57 92
04/09/24 08:02 04/09/24 08:02 04/09/24 08:02 04/09/24 08:02 04/09/24 08:02
Intake & Output
04/07/24 04/08/24 04/09/24 04/10/24
06:59 06:59 06:59 06:59
Intake Total 1897.5 / 1897.5 100 / 100 580 / 580
Output Total 275 / 275 725 / 725 1115 / 1115
Balance 1622.5 / 1622.5 -625 / -625 -535 / -535
Physical Exam
Physical Exam
General: No acute distress, AAOX3
Neck: Negative JVD
Heart: Regular, Negative S3 positive S1/S2, Negative S4, No murmur
Lungs: CTA b/l, negative wheezes/rales/rhonchi
Abd: Positive BS, NT/ND, neg rebound/rigidity/guarding
Ext: Negative cyanosis/clubbing/edema
Neuro: nonfocal
--- NOTE | 2024-04-09 09:11 | W.PN.HOSP.TC ---
Today's Communication/Plan
-
IV antibiotics. Advance diet as tolerated.
Assessment / Plan
Assessment / Plan
Physical Exam
General: No Apparent Distress and Other (frail appearing)
HEENT: PERRLA, off NG, nasal O2
Respiratory: Clear, Wheezes and Decreased Breath Sounds
Cardiac: S1/S2 and Regular Rhythm
GI: Soft and Non Tender, + ileostomy and postop findings.
Musculoskeletal: No Edema
Skin: Warm and Dry; No Rash
Psych: Calm
A/P:
Mr. 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
# Acute bowel perforation post colonoscopy
s/p exploratory laparotomy, abdominal colectomy with loop ileostomy by Dr Regalado on 04/02 for perforated cecum, intestinal malrotation, splenic flexure mass, small bowel adhesion
continue post op care
cont IV Zosyn
WBC normalized
OR culture no growth
Appreciate colorectal Surgery help
Advance to low residue diet today
Pain medications
X-ray unremarkable for obstruction yesterday
Discussed with patient that cancer will be managed by his oncologist Dr. Blackwood as outpatient once he is stable from this hospitalization and he is agreeable with this plan.
Discussed with family at bedside today including and son on 04/09.
# LV Thrombus
Possible chronic in LV
Goal to start Systemic AC
Eliquis restarted on 04/06 evening
New cardiomyopathy--> acute HFrEF with EF 40%:
Follow-up echo as outpatient to reassess left ventricular function and thrombus
Plan to initiate Coreg once off pressors and GDMT as blood pressure allows
Cardiology following
# Shock
Multifactorial hypovolemic/ hemorrhagic / septic shock/cardiogenic
Echo showed LVEF 40%, Last echo in 2021 showed normal LVEF.
S/P 3 units total of RBCs transfusion, IVF, IV Abx and we controlled source of bleeding ( tumor is out)
Levophed has been weaned off but still running relatively low blood pressure
#Acute blood loss anemia
He presented with bright red blood per rectum and blood loss during the surgery
Status post blood transfusion and platelets
Goal to keep HGB around 8 ( hx of cirrhosis)
Hemoglobin today at 8.6
# Operative and post op intubation
Extubated on 04/03
# Hx Radiation Proctitis
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
Hx of Secondary esophageal varices
Back to oral PPI
# Chronic thrombocytopenia/ pancytopenia
Platelet count 108 today
Continue to monitor
# HANY
Creatinine on admission 1.4, coming down to 1.3 today
No flank pain
# Hx Metastatic Prostate CA
Primary oncologist Dr Blackwood and Dr Quinteros
-patient on Lupron, Xgeva, Xtandi, holding for now
Updated Dr Blackwood by Dr. Bang.
Hx Alcoholic Liver cirrhosis
Hx of ascites s/p paracentesis
Thrombocytopenia
-held TIMBER REPAIRER lasix/spironolactone in setting of bleeding
# Hypokalemia, replace
# Hypocalcemia, replace
#GERD
- PPI
DVT PPx on Eliquis
CODE STATUS:
DNR
Total time spent to see the patient on the floor, examine the patient, review data and lab results, discuss treatment plan with patient and family, nursing staff around 55 minutes
Anticipated Discharge: > 48 hours
Subjective/Interval History
-
Date of Service: April 09, 2024
Patient feels better overall today. Tolerating liquid diet. No nausea or vomiting. Ostomy working well.
Objective Data
-
Labs:
Laboratory Results
04/09/24
05:17
WBC 7.4
Hgb 8.3 L
Hct 24.1 L
Plt Count 105 L
Sodium 138
Potassium 3.6
Chloride 110 H
Carbon Dioxide 18 L
BUN 28 H
Creatinine 1.1
Glucose 128 H
Calcium 7.4 L
Vital Signs:
Vital Signs
Temp Pulse Resp BP Pulse Ox
98.3 F 88 20 100/57 92
04/09/24 08:02 04/09/24 08:02 04/09/24 08:02 04/09/24 08:02 04/09/24 08:02
I&O
04/08/24 04/09/24 04/10/24
06:59 06:59 06:59
Intake Total 100 / 100 580 / 580
Output Total 725 / 725 1115 / 1115
Balance -625 / -625 -535 / -535
--- NOTE | 2024-04-09 09:33 | WOUNDNOTE ---
WOC RN NOTE: Left message with Heavenly from [facility] detailing ostomy supplies to be ordered for patient. The supply number is also in the discharge instructions. Call back number left with Care in case she has other questions.
--- NOTE | 2024-04-09 10:03 | W.PN.CRS1 ---
Today's Communication / Plan
-
Diet advance to low residue with Ensure
Incision igor removed
Assessment/Plan
-
84 yo male with a history of metastatic prostate cancer (tx XRT, lupron, xgeva, xtandi, cirrhosis and prior ETOH who initially presented for colonoscopy on 04/02 with partially obstructing mass of the descending colon noted with bowel perforation
during procedure taken for emergent surgery.
POD # 7 exploratory laparotomy with total abdominal colectomy and diverting loop ileostomy
Afebrile
Mild hypotension-currently off of Levophed
H/H stable s/p one unit of blood on 04/04
Pain present but decreased from previous with analgesic adjustments
Echo with LV thrombus
Acute anemia secondary to expected procedural losses and hemodilution; transfuse one unit this am. Previously received platelets x2 and 1 unit of PRBC's on 04/02.
--Advance to a low residue diet with Ensure 3 times daily
-- Eliquis restarted on 04/06
--Follow CBC's
--Multimodal analgesics: tylenol/10mg oxycodone/Dilaudid PRN
--Stoma nurse consult - okay to change midline dressing as needed
--Pressure Steamer Tender, amusement park entertainer, GI and hospitalist following as well
--Incisional igor removed
Subjective Data
Procedure
04/02/24- 1) exploratory laparotomy 2) abdominal colectomy with ileostomy
Subjective Data
Date of Service: April 09, 2024
Patient states he is still having some pain. His main complaint is his knees. He tolerated a full liquid diet and is enjoying his Ensure shakes. He denies nausea or vomiting. He has bowel function in his ostomy bag.
Objective Data
-
Vital Signs
Temp Pulse Resp BP Pulse Ox
98.3 F 88 20 100/57 92
04/09/24 08:02 04/09/24 08:02 04/09/24 08:02 04/09/24 08:02 04/09/24 08:02
Intake & Output
04/08/24 04/09/24 04/10/24
06:59 06:59 06:59
Intake Total 100 / 100 580 / 580
Output Total 725 / 725 1115 / 1115
Balance -625 / -625 -535 / -535
Intake:
Oral fluids 480 / 480
IV piggybacks 100 / 100 100 / 100
Output:
Liquid stool amount 300 / 300 490 / 490
Ileostomy 300 / 300 490 / 490
Urine, Voided 425 / 425 625 / 625
Lab Results
04/09/24 05:17
04/09/24 05:17
Physical Exam
-
General: No Acute Distress and AOx3
Abdomen: Soft, Non Distended, Non Tender and Other (Colostomy warm and pink with function)
Skin: Warm and Dry
--- NOTE | 2024-04-09 10:31 | PTCARENOTE ---
Assumed care of pt from [facility] RN. AAOx3. NSR on quality assurance monitor. SpO2 94% on 4L nasal cannula. VSS. Remains off levophed gtt. Midline abdominal dressing CDI. Assessed by colorectal at bedside this morning. Incision igor removed. Ileostomy
with brown liquid stool in collection bag. Voltaren gel ordered for b/l knee pain. Remains IMU level of care. Family at bedside, call interiano in reach.
[2024-04-09] MEDS: DILAUDID 0.5 MG IV (13:36)
--- NOTE | 2024-04-09 13:43 | CM ---
CM following re: discharge planning.
Reviewed pt's chart, met with pt.
PT and OT continue to recommend SNF level of care. [facility] will accept the pt for a short term rehab. [facility] DON coordinating wound care supplies with neuroscience director na.
D/C plan: [facility] for a short term rehab.
CM will follow to assist pt with discharge to [facility].
[2024-04-09] MEDS: DICLOFENAC 1% TOPICAL GEL TOPICAL (18:05)
[2024-04-09] MEDS: DICLOFENAC 1% TOPICAL GEL 100 GRAM TOPICAL (21:31)
[2024-04-10] MEDS: ZOSYN 50 IV ×2 (00:02→05:35)
[2024-04-10] MEDS: ROXICODONE 10 MG PO ×4 (00:13→20:02)
[2024-04-10] MEDS: DILAUDID 0.5 MG IV ×3 (01:51→21:45)
[2024-04-10 03:34] VITALS: BP 101/48
[2024-04-10 04:59] LABS: % Basophils 0.2 % (0-2); % Eosinophils 4.3 % (0-6); % Immature Granulocytes 1.3 % (0-0.5); % Lymphocytes 12.2 % (20.5-51.1); % Monocytes 10.1 % (1.7-9.3); % Neutrophils 71.9 % (42.2-75.2); Absolute Eosinophils 0.4 10^3/uL (0-0.7); Absolute Immature Granulocytes 0.1 10^3/uL (0-0.05); Absolute Monocytes 0.8 10^3/uL (0.1-0.6); Hematocrit 23.1 % (39.0-52.0); Mean Corp Hgb Conc. 34.6 g/dL (33.0-37.0); Mean Corpuscular Hgb 30.7 pg (27.0-31.0); Mean Corpuscular Volume 88.5 fL (80.0-94.0); Mean Platelet Volume 10.5 fL (7.4-10.4); Nucleated Red Blood Cells % 0 % (-); Platelet Count 129 10^3/uL (130-400); Red Blood Cell Count 2.61 10^6/uL (4.70-6.10); Red Cell Dist. Width 15.9 % (11.5-14.5); White Blood Cell Count 8.4 10^3/uL (4.8-10.8)
[2024-04-10 05:22] LABS: Blood Urea Nitrogen 34 mg/dl (9-20); Calcium 7.4 mg/dl (8.4-10.2); Carbon Dioxide 19 mmol/L (22-30); Chloride 110 mmol/L (98-107); Estimated Creatinine Clearance 46 ml/min; Glucose 118 mg/dl (70-99); Sodium 138 mmol/L (135-145); eGFR > 60.00
[2024-04-10 05:56] VITALS: BMI 21.0
--- NOTE | 2024-04-10 07:40 | W.PN.CARDCBS ---
Addendum entered and electronically signed by David King MD 04/10/24 14:20:
I saw and examined the patient.
The Cold Header's note was reviewed and I agree with the note.
Comment:
GEN: No distress, awake, Ox3
HEENT: supple, anicteric, mmm
LUNGS: CTA, no wheezes/rales
CV: Reg, S1/S2, 1/6 syst LSB, no murmur
ABD: soft, + ostomy, ND
EXT: No edema
NEURO: Gross non-focal
Plan:
Blood pressure remains marginal. Would add low-dose midodrine 2.5 mg p.o. twice daily and start Lasix 20 mg IV daily.
Hopefully blood pressure improves and we can start carvedilol over the next 24 hours.
Remains in sinus rhythm.
LVEF is 40% with LV thrombus. Continue Eliquis.
Continue postop care now status post ostomy.
SKIN: No rash
Original Note:
Today's Communication / Plan
-
follow volume status. consider diuresis as BP allows
GDMT limited by hypotension at present
continue eliquis
needs OP echo to reeval EF and LV thrombus
OP cardiac follow up arranged
Impression / Plan
-
.
PCP: Dr. Patiño
Provisioning Specialist: None, follows w/ Dr. King
Impression:
Presented with rectal bleeding
Colonic mass, perforated cecum s/p colectomy and ileostomy
Anemia
- Hbg 8.9 04/03 now 7.4 04/04, 8.4 04/05, 8.6 on 04/06
Thrombocytopenia
- Plt 66 04/05 (prev 118; history of low plt during this admission)
Cardiomyopathy, EF 40% by echo 04/03
LV thrombus
Metastatic prostate cancer
h/o XRT, on lupron, Xgeva, Xtandi
Hx cirrhosis
GERD with Paulino's Esophagus
HTN
Hx ETOH abuse
Echo 01/09/2022: EF 60 to 65%, trace MR
Echo 04/03/2024: EF 40%, akinesis of the distal myocardial segments with apical dyskinesis with aneurysmal formation with small LV thrombus present at the apex, approximately 1.0 cm, trivial anterior pericardial effusion, mildly dilated aortic root,
measuring 4.4 cm at sinus of Valsalva
Plan:
-Presented with rectal bleeding. Found to have partially obstructing mass on colonoscopy. Severe pain post procedure, xray findings concerning for free air. Found to have perforation of the cecum during exploratory laparotomy, and underwent
colectomy with ileostomy 04/02/2024.
-he remains with pain 'everywhere.' continue post op care, pain mgmt
-reports some SOB. remains on 3L NC, normally not on supp O2. proBNP elevated 9610. consider for trial of diuresis
-echo with EF 40% and LV thrombus. hypotension has limited addition of GDMT at this time.
-started on eliquis for LV thrombus. pt understands this is off-label use and would like to continue over coumadin. hgb 8.0
-will need repeat echo as OP to reeval EF and LV thrombus
-in SR on review of tele
-PT/OT
-for SNF upon DC
-will arrange OP cardiac follow up, wants to follow with Dr. King
HPI: Michael is an 84 year old male with PMH of metastatic prostate cancer, cirrhosis, GERD, HTN, Paulino's esophagus, and prior ETOH abuse who presented to [facility] for evaluation of rectal bleeding. He underwent colonoscopy 04/02 for evaluation and was
noted to have a partially obstructing mass in the descending colon. Post-procedurally, he was noted to have abdominal pain that continued to worsen and abdominal xray showed evidence of free air. He ultimately was seen by colorectal surgery and
underwent exploratory laparotomy and was found to have perforation of the cecum and underwent colectomy and ileostomy. Given shock and persistent hypotension, echo was ordered to assess EF. Echo 04/03 showed EF 40% with small, 1.0 cm LV thrombus.
Cardiology consulted for evaluation. Patient reports he has had chronic SOB for 5 years that has been unchanged. He denies any chest pain, dizziness, lightheadedness, or SOB. Currently only complaints are abdominal discomfort related to recent
surgery as well as some soreness in his mouth, likely from intubation.
Progress Note - Provisioning Specialist
Subjective
Date of Service: April 10, 2024
reports pain 'everywhere.' also endorses SOB.
Objective
Labs:
04/10/24 04:46
04/10/24 04:46
Labs
Hgb 8.0 g/dL (13.0-18.0) L 04/10/24 04:46
Hct 23.1 % (39.0-52.0) L 04/10/24 04:46
Plt Count 129 10^3/uL (130-400) L D 04/10/24 04:46
PT 17.3 Sec (11.4-14.6) H 04/04/24 04:13
INR 1.43 04/04/24 04:13
APTT 35.5 Sec (23.4-35.0) H 04/02/24 21:03
Sodium 138 mmol/L (135-145) 04/10/24 04:46
Potassium 4.0 mmol/L (3.5-5.1) 04/10/24 04:46
BUN 34 mg/dl (9-20) H 04/10/24 04:46
Creatinine 1.1 mg/dL (0.7-1.3) 04/10/24 04:46
Glucose 118 mg/dl (70-99) H 04/10/24 04:46
Vital Signs and I&O:
Vital Signs
Temp Pulse Resp BP Pulse Ox
97.7 F 94 18 101/48 94
04/10/24 03:34 04/10/24 03:34 04/10/24 03:34 04/10/24 03:34 04/10/24 03:34
Vital Signs
Temp Pulse Resp BP Pulse Ox
97.7 F 94 18 101/48 94
04/10/24 03:34 04/10/24 03:34 04/10/24 03:34 04/10/24 03:34 04/10/24 03:34
Intake & Output
04/07/24 04/08/24 04/09/24 04/10/24
07:59 07:59 07:59 07:59
Intake Total 1890.0 / 1890.0 100 / 100 580 / 580 1112 / 1112
Output Total 475 / 475 525 / 525 1115 / 1115 525 / 525
Balance 1415.0 / 1415.0 -425 / -425 -535 / -535 587 / 587
Physical Exam
Physical Exam
GEN: No distress, awake, alert, oriented x3. frail appearing. on supp O2, tachypenic
HEENT: supple, anicteric, mmm, eomi
LUNGS: CTA anterolaterally, no wheezes
CV: Reg, S1/S2, no murmur
ABD: soft, BS+, NT/ND
EXT: No cyanosis, clubbing. Trace edema of B/L LE
NEURO: Gross non-focal
SKIN: Warm, pink, dry. No rash
[2024-04-10 07:58] VITALS: BP 88/46
[2024-04-10] MEDS: PROTONIX 40 MG PO (08:00)
[2024-04-10] MEDS: ELIQUIS 5 MG PO ×2 (08:01→20:01)
[2024-04-10] MEDS: DICLOFENAC 1% TOPICAL GEL TOPICAL ×4 (08:20→21:44)
--- NOTE | 2024-04-10 08:47 | W.PN.HOSP.TC ---
Today's Communication/Plan
-
Antibiotics. PT OT eval
Assessment / Plan
Assessment / Plan
Physical Exam
General: No Apparent Distress and Other (frail appearing)
HEENT: PERRLA, off NG, nasal O2
Respiratory: Clear, Wheezes and Decreased Breath Sounds
Cardiac: S1/S2 and Regular Rhythm
GI: Soft and Non Tender, + ileostomy and postop findings.
Musculoskeletal: No Edema
Skin: Warm and Dry; No Rash
Psych: Calm
A/P:
Mr. 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
# Acute bowel perforation post colonoscopy
s/p exploratory laparotomy, abdominal colectomy with loop ileostomy by Dr Regalado on 04/02 for perforated cecum, intestinal malrotation, splenic flexure mass, small bowel adhesion
continue post op care
Change IV Zosyn to Augmentin
WBC normalized
OR culture no growth
Appreciate colorectal Surgery help
Advance to low residue diet today
Pain medications
X-ray unremarkable for obstruction yesterday
Discussed with patient that cancer will be managed by his oncologist Dr. Blackwood as outpatient once he is stable from this hospitalization and he is agreeable with this plan.
Discussed with family at bedside including and son on 04/09.
Transfer out of ICU/IMU yesterday
PT OT eval for discharge disposition
#Hypotension
Asymptomatic
Might consider midodrine but given depressed EF will discuss with cardiology first.
For now continue to monitor
# LV Thrombus
Possible chronic in LV
Goal to start Systemic AC
Eliquis restarted on 04/06 evening
New cardiomyopathy--> acute HFrEF with EF 40%:
Follow-up echo as outpatient to reassess left ventricular function and thrombus
Plan to initiate Coreg once off pressors and GDMT as blood pressure allows
Cardiology following
# Shock
Multifactorial hypovolemic/ hemorrhagic / septic shock/cardiogenic
Echo showed LVEF 40%, Last echo in 2021 showed normal LVEF.
S/P 3 units total of RBCs transfusion, IVF, IV Abx and we controlled source of bleeding ( tumor is out)
Levophed has been weaned off but still running relatively low blood pressure
#Acute blood loss anemia
He presented with bright red blood per rectum and blood loss during the surgery
Status post blood transfusion and platelets
Goal to keep HGB around 8 ( hx of cirrhosis)
Hemoglobin today at 8.0
# Operative and post op intubation
Extubated on 04/03
# Hx Radiation Proctitis
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
Hx of Secondary esophageal varices
Back to oral PPI
# Chronic thrombocytopenia/ pancytopenia
Platelet count 129 today
Continue to monitor
# HANY
Creatinine on admission 1.4, coming down to 1.1 today
No flank pain
# Hx Metastatic Prostate CA
Primary oncologist Dr Blackwood and Dr Quinteros
-patient on Lupron, Xgeva, Xtandi, holding for now
Updated Dr Blackwood by Dr. Bang.
Hx Alcoholic Liver cirrhosis
Hx of ascites s/p paracentesis
Thrombocytopenia
-held [employer] lasix/spironolactone in setting of bleeding
# Hypokalemia, replace
# Hypocalcemia, replace
#GERD
- PPI
DVT PPx on Eliquis
CODE STATUS:
DNR
Anticipated Discharge: 24 - 48 hours
Subjective/Interval History
-
Date of Service: April 10, 2024
Patient denies worsening abdominal pain. No nausea or vomiting.
Objective Data
-
Labs:
Laboratory Results
04/10/24
04:46
WBC 8.4
Hgb 8.0 L
Hct 23.1 L
Plt Count 129 L D
Sodium 138
Potassium 4.0
Chloride 110 H
Carbon Dioxide 19 L
BUN 34 H
Creatinine 1.1
Glucose 118 H
Calcium 7.4 L
Vital Signs:
Vital Signs
Temp Pulse Resp BP Pulse Ox
97.3 F 79 16 88/46 96
04/10/24 07:58 04/10/24 07:58 04/10/24 07:58 04/10/24 07:58 04/10/24 07:58
I&O
04/09/24 04/10/24 04/11/24
06:59 06:59 06:59
Intake Total 580 / 580 1112 / 1112
Output Total 1115 / 1115 525 / 525 50 / 50
Balance -535 / -535 587 / 587 -50 / -50
[2024-04-10 09:03] LABS: NT-proBNP 9610 pg/ml
--- NOTE | 2024-04-10 09:19 | CM ---
Addendum entered by Estefanía Green 04/10/24 15:45:
patient notified of cost.
Original Note:
Case management consult completed.
Called [facility] pharmacy & spoke with Tyler
tt TYSON Fitch
Eliquis 5mg BID - 30 day supply - $120
Eliquis 5mg BID - 90 day supply - $249
--- NOTE | 2024-04-10 10:34 | W.PN.CRS1 ---
Today's Communication / Plan
-
Doing well from a surgical perspective
Dispo planning
Assessment/Plan
-
84 yo male with a history of metastatic prostate cancer (tx XRT, lupron, xgeva, xtandi, cirrhosis and prior ETOH who initially presented for colonoscopy on 04/02 with partially obstructing mass of the descending colon noted with bowel perforation
during procedure taken for emergent surgery.
POD # 8 exploratory laparotomy with total abdominal colectomy and diverting loop ileostomy
Afebrile
Vital signs normal
H/H stable s/p one unit of blood on 04/04
Pain present but decreased from previous with analgesic adjustments
Echo with LV thrombus, on Eliquis 5 mg twice daily
Status post 1 unit packed red blood cells on 04/02
--Continue low residue diet with Ensure 3 times daily
--Eliquis restarted on 04/06
--Follow CBC's
--Multimodal analgesics: tylenol/10mg oxycodone/Dilaudid PRN
--Stoma nurse consult - okay to change midline dressing as needed
--High School Counselor, running specialist, GI and hospitalist following as well
--Dispo planning. Will likely go to [facility] care home facility.
Subjective Data
Procedure
04/02/24- 1) exploratory laparotomy 2) abdominal colectomy with ileostomy
Subjective Data
Date of Service: April 10, 2024
Patient states he still has pain but it has improved. He is tolerating a diet. He is urinating without difficulty. He denies nausea or vomiting. His ileostomy has function.
Objective Data
-
Vital Signs
Temp Pulse Resp BP Pulse Ox
97.3 F 79 16 88/46 96
04/10/24 07:58 04/10/24 07:58 04/10/24 07:58 04/10/24 07:58 04/10/24 07:58
Intake & Output
04/09/24 04/10/24 04/11/24
06:59 06:59 06:59
Intake Total 580 / 580 1112 / 1112
Output Total 1115 / 1115 525 / 525 50 / 50
Balance -535 / -535 587 / 587 -50 / -50
Intake:
Oral fluids 480 / 480 960 / 960
Amount of oral supplement(s) 2 / 2
consumed
IV piggybacks 100 / 100 150 / 150
Output:
Liquid stool amount 490 / 490 275 / 275 50 / 50
Ileostomy 490 / 490 275 / 275 50 / 50
Urine, Voided 625 / 625 250 / 250
Other:
Number of approximated MODERATE 2
amounts of urine
Lab Results
04/10/24 04:46
04/10/24 04:46
Physical Exam
-
General: No Acute Distress and AOx3
Abdomen: Soft, Non Distended, Non Tender and Other (Ileostomy warm and pink with function)
Skin: Warm and Dry
Wound: Dressing Changed
Incision: Clear, Dry, Intact
--- NOTE | 2024-04-10 10:35 | WOUNDNOTE ---
[facility] RN NOTE: Patient visited for ostomy appliance change. Patient not agreeable to teaching as he stated he is too tired and weak. Plan is for SNF at [facility]. Output was thick so appliance changed with barrier # [id number], pouch #[id number]. Patient is
concerned about leaking and wanted high output system including drainage applied. This gag writer explained that currently that would not be indicated or useful due to thick output. Patient agreeable to having high output pouch at bedside just in case.
Sacrum and heels are blanchable red. A new sacral foam applied to sacrum during assessment. Adhesive foam applied to heels. Patient refusing heel elevation as he said this impedes the use of urinal. Patient agreeable to try waffle boots. This gag writer
called SPD called to order and KIRK Kirkpatrick aware. Reviewed all aspects of PI prevention including nutrition and frequent turning. Patient reports poor appetite but said he is try to drink his Ensure. He said he does not like to be turned and prefers to
be on his back during the day. Patient continues on turning schedule. Patient has several comorbidities that contribute to skin failure including poor appetite and immobility, metastatic prostate caner, anemia and cardiomyopathy. New wounds may
develop even with optimal care.
[2024-04-10 12:09] VITALS: BP 112/61
[2024-04-10] MEDS: AUGMENTIN 875 MG/125 MG 1 TABLET PO ×2 (12:35→20:01)
[2024-04-10] MEDS: ProAmatine 2.5 MG PO (13:43)
[2024-04-10] MEDS: LASIX 40 MG IV (13:44)
[2024-04-10 15:45] VITALS: BP 102/52
--- NOTE | 2024-04-10 17:50 | PTCARENOTE ---
pt did not want to be rotated despite discussion regarding pressure ulcer prevention. He stated at night he sleeps on side during the day he sleeps on back. Changed bed position. Heels slightly red, tto wound nurse heels foam placed because pt will
not allow heels to be raised, waffle boots applied.
[2024-04-10 19:04] VITALS: BP 116/58
[2024-04-10 23:24] VITALS: BP 92/50
[2024-04-11 00:55] VITALS: BP 106/55
[2024-04-11] MEDS: ROXICODONE 10 MG PO (01:20)
[2024-04-11] MEDS: DICLOFENAC 1% TOPICAL GEL 4 GRAM TOPICAL ×2 (01:50→10:21)
[2024-04-11] MEDS: DILAUDID 0.5 MG IV (03:36)
[2024-04-11 03:40] VITALS: BP 107/52
--- NOTE | 2024-04-11 04:24 | W.PN.UPDATE ---
Update Note
Progress Note Update
0400 asked to come speak to pt because he wants to 'sign into comfort care' and doesn't wish to wait until morning
This is an 84 yo male with hx of metastatic prostate ca and newly dx adenocarcinoma (invasive). According to RN pt has been in severe 'whole body pain' where oxy 10mg and dilaudid 0.5 iv breakthrough has not been adequate in relieving pain for long
periods.
On my arrival, pt had just received pain meds iv and was comfortably sleeping for which i did not wake him. Per Rn, Pt is aaox3 and able to make own medical decisions, but this provider does feel like and children should be involved in this
decision as well. For now will increase pain meds in attempt to make his pain more controlled. Will consult case management for hospice consult. Will update attending regarding pt's wanting to transition to comfort care.
[2024-04-11] MEDS: DILAUDID 1 MG IV ×2 (05:36→10:24)
[2024-04-11 05:41] LABS: % Basophils 0.3 % (0-2); % Eosinophils 3.4 % (0-6); % Immature Granulocytes 1.2 % (0-0.5); % Lymphocytes 9.5 % (20.5-51.1); % Neutrophils 77.6 % (42.2-75.2); Absolute Eosinophils 0.3 10^3/uL (0-0.7); Absolute Immature Granulocytes 0.1 10^3/uL (0-0.05); Absolute Monocytes 0.8 10^3/uL (0.1-0.6); Absolute Neutrophils 7.7 10^3/uL (1.4-6.5); Hematocrit 23.7 % (39.0-52.0); Hemoglobin 8.4 g/dL (13.0-18.0); Mean Corp Hgb Conc. 35.4 g/dL (33.0-37.0); Mean Corpuscular Hgb 32.7 pg (27.0-31.0); Mean Corpuscular Volume 92.2 fL (80.0-94.0); Mean Platelet Volume 10.4 fL (7.4-10.4); Nucleated Red Blood Cells % 0 % (-); Platelet Count 151 10^3/uL (130-400); Red Blood Cell Count 2.57 10^6/uL (4.70-6.10); Red Cell Dist. Width 15.9 % (11.5-14.5)
[2024-04-11 06:00] VITALS: BMI 21.3
--- NOTE | 2024-04-11 06:00 | PTCARENOTE ---
Pt verbalizing frustration with difficulty controlling his pain. Pt has received multiple doses of PRN 10mg PO Melissa, as well as, 0.5mg IV Dilaudid for breakthrough pain. Pt receives immediate relief enough to fall asleep shortly after
administration, but then wakes up ~1-2 hours later c/o severe pain again. Pt inquiring about comfort care/hospice. D/w pt that has a hospice team with services available that could be arranged for a meeting with pt in the morning. Pt was adamant
this could not wait until the morning, requesting to speak with covering BOW REPAIRER CUSTOM (~0400). BOW REPAIRER CUSTOM responded immediately bedside, pt had just received IV Dilaudid and was resting comfortably and was left to rest. BOW REPAIRER CUSTOM provided orders for additional pain
relief, see MAR, for when pt wakes up in order to attempt to control pain until pt can be seen by the hospice team in the AM and discuss options with his family involved in his care. Pt awoke ~ 0515, additional pain medication provided per order,
see MAR. Pt is currently on the phone with his daughter, Evelin, about the possibility of signing onto hospice today.
[2024-04-11 06:11] LABS: Blood Urea Nitrogen 33 mg/dl (9-20); Calcium 7.3 mg/dl (8.4-10.2); Carbon Dioxide 19 mmol/L (22-30); Chloride 110 mmol/L (98-107); Estimated Creatinine Clearance 42 ml/min; Glucose 113 mg/dl (70-99); Potassium 4.3 mmol/L (3.5-5.1); Sodium 137 mmol/L (135-145); eGFR 58.89
[2024-04-11 07:58] VITALS: BP 103/59
--- NOTE | 2024-04-11 08:49 | W.PN.HOSP.TC ---
Today's Communication/Plan
-
Comfort care measures. Hospice consult.
Assessment / Plan
Assessment / Plan
Physical Exam
General: Apparent Distress and Other (frail appearing)
HEENT: PERRLA, off NG, nasal O2
Respiratory: Clear, Wheezes and Decreased Breath Sounds
Cardiac: S1/S2 and Regular Rhythm
GI: Soft and Tender, + ileostomy and postop findings.
Musculoskeletal: No Edema
Skin: Warm and Dry; No Rash
Psych: Calm
A/P:
Mr. 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
# Acute bowel perforation post colonoscopy
s/p exploratory laparotomy, abdominal colectomy with loop ileostomy by Dr Regalado on 04/02 for perforated cecum, intestinal malrotation, splenic flexure mass, small bowel adhesion
continue post op care
Change IV Zosyn to Augmentin
WBC normalized
OR culture no growth
Appreciate colorectal Surgery help
Advance to low residue diet today
Pain medications
X-ray unremarkable for obstruction yesterday
Discussed with patient that cancer will be managed by his oncologist Dr. Blackwood as outpatient once he is stable from this hospitalization and he is agreeable with this plan.
Discussed with family at bedside including and son on 04/09.
Transfer out of ICU/IMU on 04/10
PT OT eval for discharge disposition
Update today on 04/11:
Patient has decided to move forward with comfort care measures/hospice.
Hospice consulted-discussed with hospice at length.
He will be initiated on comfort care measures today.
Will reevaluate over the next 24 to 48 hours if inpatient hospice needed or home hospice require and also will readdress his medications after final decision take place.
Daughter notified by hospice staff as well.
Notified colorectal surgery today as well.
#Hypotension
Asymptomatic
On midodrine
For now continue to monitor
# LV Thrombus
Possible chronic in LV
Goal to start Systemic AC
Eliquis restarted on 04/06 evening
New cardiomyopathy--> acute HFrEF with EF 40%:
Follow-up echo as outpatient to reassess left ventricular function and thrombus
Plan to initiate Coreg once off pressors and GDMT as blood pressure allows
Cardiology following
# Shock
Multifactorial hypovolemic/ hemorrhagic / septic shock/cardiogenic
Echo showed LVEF 40%, Last echo in 2021 showed normal LVEF.
S/P 3 units total of RBCs transfusion, IVF, IV Abx and we controlled source of bleeding ( tumor is out)
Levophed has been weaned off but still running relatively low blood pressure
#Acute blood loss anemia
He presented with bright red blood per rectum and blood loss during the surgery
Status post blood transfusion and platelets
Goal to keep HGB around 8 ( hx of cirrhosis)
Hemoglobin today at 8.0
# Operative and post op intubation
Extubated on 04/03
# Hx Radiation Proctitis
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
Hx of Secondary esophageal varices
Back to oral PPI
# Chronic thrombocytopenia/ pancytopenia
Platelet count 129 today
Continue to monitor
# HANY
Creatinine on admission 1.4, coming down to 1.1 today
No flank pain
# Hx Metastatic Prostate CA
Primary oncologist Dr Blackwood and Dr Quinteros
-patient on Lupron, Xgeva, Xtandi, holding for now
Updated Dr Blackwood by Dr. Bang.
Hx Alcoholic Liver cirrhosis
Hx of ascites s/p paracentesis
Thrombocytopenia
-held [employer] lasix/spironolactone in setting of bleeding
# Hypokalemia, replace
# Hypocalcemia, replace
#GERD
- PPI
DVT PPx on Eliquis
CODE STATUS:
DNR
Time spent 55 minutes. More than 50% of the time spent in counseling and coordination regarding hospice care, poor prognosis, plan of care.
Anticipated Discharge: > 48 hours
Subjective/Interval History
-
Date of Service: April 11, 2024
Patient still with pain but tolerable. He has made a decision to move forward with hospice care.
Objective Data
-
Labs:
Laboratory Results
04/11/24
05:26
WBC 10.0
Hgb 8.4 L
Hct 23.7 L
Plt Count 151
Sodium 137
Potassium 4.3
Chloride 110 H
Carbon Dioxide 19 L
BUN 33 H
Creatinine 1.2
Glucose 113 H
Calcium 7.3 L
Vital Signs:
Vital Signs
Temp Pulse Resp BP Pulse Ox
98.2 F 85 14 103/59 93
04/11/24 07:58 04/11/24 07:58 04/11/24 07:58 04/11/24 07:58 04/11/24 07:58
I&O
04/10/24 04/11/24 04/12/24
06:59 06:59 06:59
Intake Total 1112 / 1112 1080 / 1080
Output Total 525 / 525 630 / 630
Balance 587 / 587 450 / 450
--- NOTE | 2024-04-11 09:05 | W.PN.CARDCBS ---
Addendum entered and electronically signed by Robert Hills MD 04/11/24 12:03:
I had a long discussion with patient and he expresses his wish for comfort care and hospice
He has discussed this with his daughter and tells me his family is in agreement.
Hospice has been consulted.
We will sign off, please call if needed
Original Note:
Today's Communication / Plan
-
patient expresses he would like to pursue comfort/hospice care
hypotension currently limiting GDMT
no significant improvement per patient with lasix yesterday
Impression / Plan
-
.
PCP: Dr. Patiño
Oil Lease Buyer: None, follows w/ Dr. King
Impression:
Presented with rectal bleeding
Colonic mass, perforated cecum s/p colectomy and ileostomy
Anemia
- Hbg 8.9 04/03 now 7.4 04/04, 8.4 04/05, 8.6 on 04/06
Thrombocytopenia
- Plt 66 04/05 (prev 118; history of low plt during this admission)
Cardiomyopathy, EF 40% by echo 04/03
LV thrombus
Metastatic prostate cancer
h/o XRT, on lupron, Xgeva, Xtandi
Hx cirrhosis
GERD with Paulino's Esophagus
HTN
Hx ETOH abuse
Echo 01/09/2022: EF 60 to 65%, trace MR
Echo 04/03/2024: EF 40%, akinesis of the distal myocardial segments with apical dyskinesis with aneurysmal formation with small LV thrombus present at the apex, approximately 1.0 cm, trivial anterior pericardial effusion, mildly dilated aortic root,
measuring 4.4 cm at sinus of Valsalva
Plan:
-Presented with rectal bleeding. Found to have partially obstructing mass on colonoscopy. Severe pain post procedure, xray findings concerning for free air. Found to have perforation of the cecum during exploratory laparotomy, and underwent
colectomy with ileostomy 04/02/2024.
-he remains with pain 'everywhere.' he has expressed that he is interested in pursuing comfort/hospice care, TT sent to hospitalist this AM concerning this, also discussed with CM. does not appear unreasonable given metastatic prostate cancer to
bone. dilaudid was ordered for patient overnight, which he reports has improved his pain
-proBNP 9610. currently on 4L NC. reports breathing is about the same. does not feel as though lasix dose yesterday helped significantly.
-echo with EF 40% and LV thrombus. in SR on review of tele with several brief episodes of likely atach, asymptomatic. hypotension has limited addition of GDMT at this time.
-started on eliquis for LV thrombus. pt understands this is off-label use and would like to continue over coumadin. hgb 8.4
-will need repeat echo as OP to reeval EF and LV thrombus if opts against comfort care
-PT/OT
HPI: Michael is an 84 year old male with PMH of metastatic prostate cancer, cirrhosis, GERD, HTN, Paulino's esophagus, and prior ETOH abuse who presented to [facility] for evaluation of rectal bleeding. He underwent colonoscopy 04/02 for evaluation and was
noted to have a partially obstructing mass in the descending colon. Post-procedurally, he was noted to have abdominal pain that continued to worsen and abdominal xray showed evidence of free air. He ultimately was seen by colorectal surgery and
underwent exploratory laparotomy and was found to have perforation of the cecum and underwent colectomy and ileostomy. Given shock and persistent hypotension, echo was ordered to assess EF. Echo 04/03 showed EF 40% with small, 1.0 cm LV thrombus.
Cardiology consulted for evaluation. Patient reports he has had chronic SOB for 5 years that has been unchanged. He denies any chest pain, dizziness, lightheadedness, or SOB. Currently only complaints are abdominal discomfort related to recent
surgery as well as some soreness in his mouth, likely from intubation.
Progress Note - Oil Lease Buyer
Subjective
Date of Service: April 11, 2024
reports improvement in pain with dilaudid. no improvement in SOB noted
Objective
Labs:
04/11/24 05:26
04/11/24 05:26
Labs
Hgb 8.4 g/dL (13.0-18.0) L 04/11/24 05:26
Hct 23.7 % (39.0-52.0) L 04/11/24 05:26
Plt Count 151 10^3/uL (130-400) 04/11/24 05:26
PT 17.3 Sec (11.4-14.6) H 04/04/24 04:13
INR 1.43 04/04/24 04:13
APTT 35.5 Sec (23.4-35.0) H 04/02/24 21:03
Sodium 137 mmol/L (135-145) 04/11/24 05:26
Potassium 4.3 mmol/L (3.5-5.1) 04/11/24 05:26
BUN 33 mg/dl (9-20) H 04/11/24 05:26
Creatinine 1.2 mg/dL (0.7-1.3) 04/11/24 05:26
Glucose 113 mg/dl (70-99) H 04/11/24 05:26
Vital Signs and I&O:
Vital Signs
Temp Pulse Resp BP Pulse Ox
98.2 F 85 14 103/59 93
04/11/24 07:58 04/11/24 07:58 04/11/24 07:58 04/11/24 07:58 04/11/24 07:58
Vital Signs
Temp Pulse Resp BP Pulse Ox
98.2 F 85 14 103/59 93
04/11/24 07:58 04/11/24 07:58 04/11/24 07:58 04/11/24 07:58 04/11/24 07:58
Intake & Output
04/09/24 04/10/24 04/11/24 04/12/24
07:59 07:59 07:59 07:59
Intake Total 580 / 580 1112 / 1112 1080 / 1080
Output Total 1115 / 1115 525 / 525 630 / 630
Balance -535 / -535 587 / 587 450 / 450
Physical Exam
Physical Exam
GEN: No distress, awake, alert, oriented x3. cachectic. on supp O2, tachypneic
HEENT: supple, anicteric, mmm, eomi
LUNGS: CTA anterolaterally, no wheezes
CV: Reg, S1/S2, no murmur
ABD: soft, BS+, NT/ND
EXT: No cyanosis, clubbing, edema
NEURO: Gross non-focal
SKIN: Warm, pink, dry. No rash
--- NOTE | 2024-04-11 09:24 | CM ---
Reviewed the chart notes. Per cardiology, patient requests hospice consult. Referral sent for Hospice via [facility]. CM continues to be available to patient/family and is monitoring medical plan for needs at discharge
[2024-04-11] MEDS: ProAmatine PO ×2 (10:21→14:12)
[2024-04-11] MEDS: AUGMENTIN 875 MG/125 MG PO ×2 (10:21→19:13)
[2024-04-11] MEDS: ELIQUIS PO ×2 (10:21→19:13)
[2024-04-11] MEDS: PROTONIX PO (10:26)
[2024-04-11] MEDS: OXYCONTIN (CONTROLLED RELEASE) 10 MG PO (11:32)
--- NOTE | 2024-04-11 11:43 | HOSPNOTE ---
Met with patient to provide hospice introduction and assess GIP eligibility. Daughter Kim was called and present via speakerphone. Patient and daughter are on board with hospice philosophy. Patient wishes to be inpatient hospice but does not
meet GIP criteria at this time. Reassured him that hospice will follow daily and assess GIP eligibility. Will monitor over the weekend and assess if patient can be discharged on Saturday back to [facility] on Hospice. Updated Dr. Cervantes and case
management.
--- NOTE | 2024-04-11 12:18 | W.PN.UPDATE ---
Update Note
Progress Note Update
Updated by primary that patient is pursuing hospice; colorectal will sign off, please call for any questions/concerns
[2024-04-11] MEDS: DICLOFENAC 1% TOPICAL GEL TOPICAL ×3 (12:55→21:31)
[2024-04-11] MEDS: MORPHINE SULFATE 4 MG IV ×4 (13:14→23:50)
[2024-04-11] MEDS: FLUSH (NSS) 2 FLUSH IV (13:15)
[2024-04-11 15:35] VITALS: BP 102/54
[2024-04-11 21:42] VITALS: BP 85/40
[2024-04-12] MEDS: MORPHINE SULFATE 4 MG IV (00:50)
[2024-04-12] MEDS: MORPHINE 100 IV (01:32)
--- NOTE | 2024-04-12 02:14 | PTCARENOTE ---
Pt received multiple doses of PRN pain medication without significant relief; 3 doses given within 4 hours, per protocol, pharmacy was contacted and pt was started on Morphine gtt, see MAR. Pt initially started on step 1 per order, given pt had
previously been receiving 4mg IV Morphine Q1 hour, d/w covering AGRICULTURAL SCIENCES PROFESSOR, orders received to increase morphine gtt to step 2, see flowsheet for time stamps. Pt reports significant improvement of pain at this time; pt repositioned, mouth moisturizer
provided, resting comfortably in bed, call interiano in hand. Pt's daughter, Kim, updated via phone per patient request, all questions answered at this time, emotional support provided.
[2024-04-12 07:38] VITALS: BP 107/53
[2024-04-12] MEDS: MORPHINE SULFATE 2 MG IV ×2 (08:58→12:16)
[2024-04-12] MEDS: FLUSH (NSS) 2 FLUSH IV ×2 (09:00→12:17)
[2024-04-12] MEDS: ELIQUIS PO (09:07)
[2024-04-12] MEDS: ProAmatine PO ×2 (09:07→15:24)
[2024-04-12] MEDS: AUGMENTIN 875 MG/125 MG PO (09:07)
[2024-04-12] MEDS: PROTONIX PO (09:07)
[2024-04-12] MEDS: DICLOFENAC 1% TOPICAL GEL 4 GRAM TOPICAL ×2 (09:07→12:18)
--- NOTE | 2024-04-12 09:09 | W.PN.HOSP.TC ---
Today's Communication/Plan
-
Plan to transition to inpatient hospice.
Assessment / Plan
Assessment / Plan
Physical Exam
General: No apparent Distress and Other (frail appearing)
HEENT: PERRLA, off NG, nasal O2
Respiratory: Clear, Wheezes and Decreased Breath Sounds
Cardiac: S1/S2 and Regular Rhythm
GI: Soft and Tender, + ileostomy and postop findings.
Musculoskeletal: No Edema
Skin: Warm and Dry; No Rash
Psych: Calm
A/P:
Mr. 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
# Acute bowel perforation post colonoscopy
s/p exploratory laparotomy, abdominal colectomy with loop ileostomy by Dr Regalado on 04/02 for perforated cecum, intestinal malrotation, splenic flexure mass, small bowel adhesion
continue post op care
Change IV Zosyn to Augmentin
WBC normalized
OR culture no growth
Appreciate colorectal Surgery help
Advance to low residue diet today
Pain medications
X-ray unremarkable for obstruction yesterday
Discussed with patient that cancer will be managed by his oncologist Dr. Blackwood as outpatient once he is stable from this hospitalization and he is agreeable with this plan.
Discussed with family at bedside including and son on 04/09.
Transfer out of ICU/IMU on 04/10
PT OT eval for discharge disposition
Update on 04/11:
Patient has decided to move forward with comfort care measures/hospice.
Hospice consulted-discussed with hospice at length.
He will be initiated on comfort care measures today.
Will reevaluate over the next 24 to 48 hours if inpatient hospice needed or home hospice require and also will readdress his medications after final decision take place.
Daughter notified by hospice staff as well.
Notified colorectal surgery today as well.
Update today on 04/12:
Patient has been placed on morphine drip since overnight.
Discussed with hospice staff and he might be able to transition to inpatient hospice later today.
Continue comfort care measures.
#Hypotension
Asymptomatic
On midodrine
For now continue to monitor
# LV Thrombus
Possible chronic in LV
Goal to start Systemic AC
Eliquis restarted on 04/06 evening
New cardiomyopathy--> acute HFrEF with EF 40%:
Follow-up echo as outpatient to reassess left ventricular function and thrombus
Plan to initiate Coreg once off pressors and GDMT as blood pressure allows
Cardiology following
# Shock
Multifactorial hypovolemic/ hemorrhagic / septic shock/cardiogenic
Echo showed LVEF 40%, Last echo in 2021 showed normal LVEF.
S/P 3 units total of RBCs transfusion, IVF, IV Abx and we controlled source of bleeding ( tumor is out)
Levophed has been weaned off but still running relatively low blood pressure
#Acute blood loss anemia
He presented with bright red blood per rectum and blood loss during the surgery
Status post blood transfusion and platelets
Goal to keep HGB around 8 ( hx of cirrhosis)
Hemoglobin today at 8.0
# Operative and post op intubation
Extubated on 04/03
# Hx Radiation Proctitis
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
Hx of Secondary esophageal varices
Back to oral PPI
# Chronic thrombocytopenia/ pancytopenia
Platelet count 129 today
Continue to monitor
# HANY
Creatinine on admission 1.4, coming down to 1.1 today
No flank pain
# Hx Metastatic Prostate CA
Primary oncologist Dr Blackwood and Dr Quinteros
-patient on Lupron, Xgeva, Xtandi, holding for now
Updated Dr Blackwood by Dr. Bang.
Hx Alcoholic Liver cirrhosis
Hx of ascites s/p paracentesis
Thrombocytopenia
-held MILITARY PAY TECHNICIAN lasix/spironolactone in setting of bleeding
# Hypokalemia, replace
# Hypocalcemia, replace
#GERD
- PPI
DVT PPx on Eliquis
CODE STATUS:
DNR
Anticipated Discharge: Today
Subjective/Interval History
-
Date of Service: April 12, 2024
Patient was placed on morphine drip overnight. He is a bit drowsy this morning but still coherent and answering questions appropriately. Looks frail overall.
Objective Data
-
Vital Signs:
Vital Signs
Temp Pulse Resp BP Pulse Ox
98.6 F 82 12 107/53 94
04/12/24 07:38 04/12/24 07:38 04/12/24 07:38 04/12/24 07:38 04/12/24 07:38
I&O
04/11/24 04/12/24 04/13/24
06:59 06:59 06:59
Intake Total 1080 / 1080 390 / 390
Output Total 630 / 630 625 / 625
Balance 450 / 450 -235 / -235
--- NOTE | 2024-04-12 09:10 | W.DCSUMMARY ---
Discharge Summary
Discharge Data
Date of Admission: 04/02/24
Date of Discharge: 04/12/24
-
Pending Results: No
Hospital Course
Patient 84-year-old male history of metastatic prostatic cancer, cirrhosis, GERD, hypertension, Paulino's, history of alcohol use in the past, he underwent colonoscopy on 04/02 and found to have a partial obstructing mass of the ascending colon and
found to have evidence of colonic perforation. He was kept n.p.o., given antibiotics, blood and platelets transfusion and colorectal surgery consulted. He underwent emergent surgery with exploratory laparotomy colectomy and loop ileostomy.
Patient course complicated with hypotension and EF of 40% with global hypokinesis and concerns for left ventricular thrombus. He was on pressors for several days. Cardiology and home care provider on board. He was able to be tapered off pressors
although blood pressure remained relatively in the low normal side. GDMT were not able to be given due to hypotension. In terms of anticoagulation he was placed on DOAC. His pathology confirmed adenocarcinoma of the colon. Patient pain was
difficult to control as well but he was placed on aggressive pain regimen. Overall prognosis poor and patient decided on going into hospice care. Hospice consulted. He was placed on comfort measures. Patient continued to do poorly and he was
felt to meet criteria for inpatient hospice care. He will be continuing on comfort care measures and transition to inpatient hospice.
Discharge Plan
-
Patient Disposition: Hospice - Inpatient [facility]
Discharge Orders:
Discharge Patient (As Directed); Ordered 04/12/24
Ordered By: Ned Cervantes
Discharge Date and Time
Print Language: BAHRAINI
== END 2024-04-12 14:23 | disposition hospice, inpatient (51) | DRG 329 ==
LOC: 2 NORTH 09:26
PROVIDERS: Internal Medicine; Nurse Practitioner Adult Health; Nurse Practitioner Family; Nurse Practitioner Primary Care; Physician Assistant Medical; Registered Nurse; Surgery; ADMITTING PHYSICIAN Student in an Organized Health Care Education/Training Program; ATTENDING PHYSICIAN Hospitalist; CONSULT PHYSICIAN Internal Medicine Cardiovascular Disease; CONSULT PHYSICIAN Internal Medicine Critical Care Medicine; CONSULT PHYSICIAN Internal Medicine Gastroenterology; CONSULT PHYSICIAN Surgery; EMERGENCY PHYSICIAN Student in an Organized Health Care Education/Training Program; FAMILY PHYSICIAN Family Medicine
PROC: 0DBM8ZX Excision of Descending Colon, Via Natural or Artificial Opening Endoscopic, Diagnostic (ICD-10-PCS; 2024-04-02)
PROC: 0D9670Z Drainage of Stomach with Drainage Device, Via Natural or Artificial Opening (ICD-10-PCS; 2024-04-02)
PROC: 0D1B0Z4 Bypass Ileum to Cutaneous, Open Approach (ICD-10-PCS; 2024-04-02)
PROC: 30233N1 Transfusion of Nonautologous Red Blood Cells into Peripheral Vein, Percutaneous Approach (ICD-10-PCS; 2024-04-02)
PROC: 0DTE0ZZ Resection of Large Intestine, Open Approach (ICD-10-PCS; 2024-04-02)
PROC: 30233R1 Transfusion of Nonautologous Platelets into Peripheral Vein, Percutaneous Approach (ICD-10-PCS; 2024-04-02)
DX: C18.9 Malignant neoplasm of colon, unspecified (principal); I50.21 Acute systolic (congestive) heart failure; T81.19XA Other postprocedural shock, initial encounter; K57.31 Diverticulosis of large intestine without perforation or abscess with bleeding; K63.1 Perforation of intestine (nontraumatic); C79.51 Secondary malignant neoplasm of bone; N17.9 Acute kidney failure, unspecified; J90 Pleural effusion, not elsewhere classified; K56.690 Other partial intestinal obstruction; Q43.3 Congenital malformations of intestinal fixation; I42.9 Cardiomyopathy, unspecified; R64 Cachexia; Z68.1 Body mass index [BMI] 19.9 or less, adult; I12.9 Hypertensive chronic kidney disease with stage 1 through stage 4 chronic kidney disease, or unspecified chronic kidney disease; Z51.5 Encounter for palliative care; N18.9 Chronic kidney disease, unspecified; K64.8 Other hemorrhoids; K70.31 Alcoholic cirrhosis of liver with ascites; D69.6 Thrombocytopenia, unspecified; K22.2 Esophageal obstruction; C61 Malignant neoplasm of prostate; N40.0 Benign prostatic hyperplasia without lower urinary tract symptoms; K21.9 Gastro-esophageal reflux disease without esophagitis; R15.9 Full incontinence of feces; K22.70 Barrett's esophagus without dysplasia; K80.20 Calculus of gallbladder without cholecystitis without obstruction; I77.810 Thoracic aortic ectasia; I35.1 Nonrheumatic aortic (valve) insufficiency; E78.00 Pure hypercholesterolemia, unspecified; F10.11 Alcohol abuse, in remission; E87.6 Hypokalemia; J44.9 Chronic obstructive pulmonary disease, unspecified; E83.51 Hypocalcemia; K66.0 Peritoneal adhesions (postprocedural) (postinfection); R73.9 Hyperglycemia, unspecified; Y83.8 Other surgical procedures as the cause of abnormal reaction of the patient, or of later complication, without mention of misadventure at the time of the procedure; Y92.239 Unspecified place in hospital as the place of occurrence of the external cause; R15.2 Fecal urgency; F32.A Depression, unspecified; D72.819 Decreased white blood cell count, unspecified; Z66 Do not resuscitate; Z85.828 Personal history of other malignant neoplasm of skin; Z87.891 Personal history of nicotine dependence; Z80.0 Family history of malignant neoplasm of digestive organs; Z88.6 Allergy status to analgesic agent; Z88.1 Allergy status to other antibiotic agents; Z92.3 Personal history of irradiation
CPT/HCPCS: 88305; 88309; 71045; 74018; 74019; 80048; 80053; 82805; 83735; 83880; 85014; 85018; 85025; 85027; 85610; 85730; 86850; 86900; 86901; 86920; 88342; 93005; 93307; 94002; 94003; 97110; 97116; 97163; 97167; 97530; 99284; C1776; P9016; P9073; Q9957

== ENCOUNTER 2024-04-12 14:24 | Inpatient (IN) | payer OTHER, SELFPAY ==
--- NOTE | 2024-04-12 14:35 | CM ---
Reviewed the chart notes. Patient is now on [facility].
--- NOTE | 2024-04-12 14:46 | HPS.HSE ---
Family Physician
-
Family Physician: INTERVIEWE UNKNOWN - PT NOT
Chief Complaint
-
Intractable pain
History of Present Illness
Patient 84-year-old male history of metastatic prostatic cancer, cirrhosis, GERD, hypertension, Humphries's, history of alcohol use in the past, he underwent colonoscopy on 04/02 and found to have a partial obstructing mass of the ascending colon and
found to have evidence of colonic perforation. He was kept n.p.o., given antibiotics, blood and platelets transfusion and colorectal surgery consulted. He underwent emergent surgery with exploratory laparotomy colectomy and loop ileostomy.
Patient course complicated with hypotension and EF of 40% with global hypokinesis and concerns for left ventricular thrombus. He was on pressors for several days. Cardiology and welfare administrator on board. He was able to be tapered off pressors
although blood pressure remained relatively in the low normal side. GDMT were not able to be given due to hypotension. In terms of anticoagulation he was placed on DOAC. His pathology confirmed adenocarcinoma of the colon. Patient pain was
difficult to control as well but he was placed on aggressive pain regimen. Overall prognosis poor and patient decided on going into hospice care. Hospice consulted. He was placed on comfort measures. Patient continued to do poorly and he was
felt to meet criteria for inpatient hospice care. He will be continuing on comfort care measures and transition to inpatient hospice.
Medical History
Past Medical History
Past Medical History: Reports Other
Additional Past Medical History:
Prostate Cancer with Metastatic Disease to Bone
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
Depression
Radiation Proctitis
Colon adenocarcinoma
Past Surgical History: Reports Other
Additional Past Surgical History:
Skin Cancer Excision / Plastic Surgery
T&A
Social History
Tobacco: Former Smoker (Quit at age 40, but cites heavy use prior to that of 2 ppd. Total of 40+ pack years.)
Alcohol: Former (History of excessive alcohol intake (drank 'all day') and quit this 2 years ago when metastatic disease diagnosed. Now one drink per week.)
Drug: None
Employment: Retired
Family History
Family History: Other (Brother: Appendiceal Cancer)
Allergies / Home Medications
Allergies reflects when Allergies were last updated in [employer].
Home Medications with original date entered in [employer]
Allergy/Medication List:
Allergies
Allergy/AdvReac Type Severity Reaction Status Date / Time
aspirin AdvReac bleeding Verified 04/01/24 09:55
ciprofloxacin [From Cipro] AdvReac anxiety, Verified 04/01/24 09:55
trembling,
palpatations
Home Medications
denosumab 120 mg/1.7 mL (70 mg/mL) subcutaneous solution (Xgeva) 120 mg INJ [id number] prostate cancer 11/24/20
enzalutamide 40 mg capsule (Xtandi) 120 mg PO DAILY prostate cancer 11/24/20
loperamide 2 mg capsule 2 mg PO Q4HPRN PRN diarrhea 11/24/20
omeprazole 20 mg capsule,delayed release 20 mg PO DAILY Gastrointestinal issue 11/24/20
vitamins A,C,G-jxql-vufdva 4,296 mcg-226 mg-90 mg capsule (PreserVision AREDS) 1 cap PO DAILY Supplement 11/24/20
calcium 600 mg (as carbonate)-vitamin D3 5 mcg (200 unit) capsule (Calcium 600 + D(3)) 1 cap PO DAILY Supplement 04/01/24
diphenhydramine 25 mg-acetaminophen 500 mg tablet (Tylenol PM Extra Strength) 1 tab PO HSPRN PRN sleep 04/01/24
furosemide 20 mg tablet (Lasix) 20 mg PO DAILY Fluid Retention/Swelling 04/01/24
leuprolide 1 mg/0.2 mL subcutaneous kit 7.5 mg SC [id number] prostate cancer 04/01/24
spironolactone 50 mg tablet 50 mg PO DAILY Blood Pressure 04/01/24
vitamin B complex 1 tab PO DAILY supplement 04/01/24
Review of Systems
-
A 12 point ROS was completed and negative except as noted: Yes
Physical Exam
Vital Signs
Physical exam:
General: Acutely ill
HEENT: Normocephalic, Atraumatic and Moist Mucous Membranes
Respiratory: Clear to Auscultation; Negative Wheezes, Rales or Rhonchi
Cardiac: Regular Rhythm and S1/S2
GI: Soft,tender and Nondistended,postop findings, ileostomy in place
Musculoskeletal: No Clubbing, No Cyanosis and No Edema
Neuro: Awake, Alert and Oriented
Psych: Calm
Physical Exam
General: Other
Data Reviewed
-
Diagnostic Radiology: Image Personally Visualized and interpreted
Lab Data: Labs Reviewed by me
Impression/Plan
-
IMPRESSION:
Mr. Michael Guy is a 84 yo man with hx metastatic prostate CA, prior GI bleed with AVM and radiation proctitis, liver cirrhosis likely 2/2 history alcohol use, presented to the ER with complaint of rectal bleeding and he underwent colonoscopy
status post complicated with bowel perforation status post exploratory laparotomy with colectomy and loop ileostomy on 04/02.
PLAN:
Colon adenocarcinoma status post exploratory laparotomy for bowel perforation with intractable pain:
Admitted to inpatient hospice today on 04/12
On comfort care measures to continue
Pain control with morphine drip
Ativan as needed
Zofran as needed
Levsin as needed
Robinul as needed
Bowel regimen as needed
No need for DVT prophylaxis since patient is on comfort care
Discussed with hospice care staff today
Discussed with attending RN today
Rest of medical problems:
-LV thrombus
-hx metastatic prostate CA to bone -- prior radiation current Leuprolide, Xgeva, Xtandi
-cirrhosis with hx grade I EV 2021, paracentesis 2021, no HE, AFP 1.23 12/2023
-anemia
-hx prior noted colonic angioectasia c/w radiation proctitis
-CT 2021 with 1.5 cm soft tissue nodule along splenic flexure adherent stool vs polyp
-thrombocytopenia
-squamous cell CA
-hx GI bleed
-colon polyp
-humphries's
-Ecoli sepsis diverticulitis
-pleural effusion with prior thoracentesis
-Prior ETOH abuse quit 2-3 years ago
-GERD
-CKD
-aortic insufficiency
[2024-04-12 23:14] VITALS: BP 109/51
--- NOTE | 2024-04-13 00:19 | HOSPNOTE ---
Patient has been admitted to inpatient hospice. Patient is inpatient hospice appropriate for the management of pain, dyspnea and anxiety with iv morphine infusion, ivp prn and ativan prn. Hospice will visit daily. Daughter Apryl at bedside and
in agreement with hospice. Patient signed own consents. Patient asks that hospice not be discussed in front of spouse. Informal report with KIRK Barroso, in agreement with plan. Attending and CM updated. Emotional support provided.
[2024-04-13 07:01] VITALS: BP 118/52
--- NOTE | 2024-04-13 09:53 | HOSPNOTE ---
Patient is GIP appropriate level of care, currently on step 2 of Morphine continuous infusion 2mg/hr. Morphine infusion started late last evening. Patient states he has mild pain with continuous infusion. Patient is visibly SOB after
repositioning by 2 staff, recovers slightly after 10 minutes. Discussed with patient and daughter Evelin that he can ask for additional morphine as needed for pain or SOB and also Ativan is available for anxiety as SOB can cause patient to be
anxious. Patient voices understanding. Temp 99.1 HR 83 BP 118/52 and RR 16 at rest.
Family and patient does not want to know patient is on hospice.
--- NOTE | 2024-04-13 13:06 | W.PN.HOSP.TC ---
Today's Communication/Plan
-
c/w morphine gtt
Assessment / Plan
Assessment / Plan
Physical Exam
General: No Apparent Distress and Other (frail appearing)
HEENT: nasal O2 , no deformities.
Respiratory: no audible Wheezes.
Cardiac: S1/S2 and Regular Rhythm
GI: Soft + ileostomy and postop findings.
Musculoskeletal: No Edema
neuro: awake, answered simple questions.
Skin: Warm and Dry; No Rash
Psych: Calm
A/P:
Mr. 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
# Acute bowel perforation post colonoscopy
s/p exploratory laparotomy, abdominal colectomy with loop ileostomy by Dr Regalado on 04/02 for perforated cecum, intestinal malrotation, splenic flexure mass, small bowel adhesion
continue post op care
#adenocarcinoma of the colon.
Currently on comfort care with pain control using morphine gtt
Pain was difficult to control despite using aggressive pain control regimen. Overall prognosis poor and patient decided on going into hospice care. Hospice consulted. He was placed on comfort measures. Patient continued to do poorly and he was
felt to meet criteria for inpatient hospice care. He will be continuing on comfort care measures and transition to inpatient hospice.
#Hypotension
# LV Thrombus
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
# Shock
# Multifactorial hypovolemic/ hemorrhagic / septic shock/cardiogenic
#Acute blood loss anemia
# Operative and post op intubation
Extubated on 04/03
# Hx Radiation Proctitis
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
Hx of Secondary esophageal varices
# Chronic thrombocytopenia/ pancytopenia
# HANY
Creatinine down to 1.1
# Hx Metastatic Prostate CA
Primary oncologist Dr Blackwood and Dr Quinteros
Updated Dr Blackwood
#Hx Alcoholic Liver cirrhosis
Hx of ascites s/p paracentesis
# Hypokalemia,
# Hypocalcemia,
#GERD
CODE STATUS:
DNR
Total time spent to see the patient, examine the patient on the floor, review data and lab results, discuss treatment plan with patient, daughter at bed side, nursing staff around 55 minutes
Anticipated Discharge: > 48 hours
Subjective/Interval History
-
Date of Service: April 13, 2024
He is on morphine gtt
No sob
No fevers
Objective Data
-
Vital Signs:
Vital Signs
Temp Pulse Resp BP Pulse Ox
99.1 F 83 16 118/52 95
04/13/24 07:01 04/13/24 07:01 04/13/24 07:01 04/13/24 07:01 04/13/24 08:15
I&O
04/12/24 04/13/24 04/14/24
06:59 06:59 06:59
Intake Total 900 / 900
Output Total 345 / 345
Balance 555 / 555
--- NOTE | 2024-04-13 15:20 | CM ---
Met with patient and family at bedside.
Comfort care, pain control morphine gtt
CM offered emotional support and available for needs.
PLAN: Comfort care
[2024-04-13 19:47] VITALS: BP 124/62
[2024-04-13] MEDS: MORPHINE 100 IV (20:20)
[2024-04-14 07:15] VITALS: BP 107/53
--- NOTE | 2024-04-14 11:45 | W.PN.HOSP.TC ---
Today's Communication/Plan
-
c/w morphine gtt
Assessment / Plan
Assessment / Plan
Physical Exam
General: No Apparent Distress and Other (frail appearing)
HEENT: nasal O2 , no deformities.
Respiratory: no audible Wheezes.
Cardiac: S1/S2 and Regular Rhythm
GI: Soft + ileostomy and postop findings.
Musculoskeletal: No Edema
neuro: awake, answered simple questions.
Skin: Warm and Dry; No Rash
Psych: Calm
A/P:
Mr. 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
# Acute bowel perforation post colonoscopy
s/p exploratory laparotomy, abdominal colectomy with loop ileostomy by Dr Regalado on 04/02 for perforated cecum, intestinal malrotation, splenic flexure mass, small bowel adhesion
continue post op care
#adenocarcinoma of the colon.
Currently on comfort care with pain control using morphine gtt
Pain was difficult to control despite using aggressive pain control regimen. Overall prognosis poor and patient decided on going into hospice care. Hospice consulted. He was placed on comfort measures. Patient continued to do poorly and he was
felt to meet criteria for inpatient hospice care. He will be continuing on comfort care measures and transition to inpatient hospice.
#Hypotension
# LV Thrombus
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
# Shock
# Multifactorial hypovolemic/ hemorrhagic / septic shock/cardiogenic
#Acute blood loss anemia
# Operative and post op intubation
Extubated on 04/03
# Hx Radiation Proctitis
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
Hx of Secondary esophageal varices
# Chronic thrombocytopenia/ pancytopenia
# HANY
Creatinine down to 1.1
# Hx Metastatic Prostate CA
Primary oncologist Dr Blackwood and Dr Quinteros
Updated Dr Blackwood
#Hx Alcoholic Liver cirrhosis
Hx of ascites s/p paracentesis
# Hypokalemia,
# Hypocalcemia,
#GERD
CODE STATUS:
DNR
Total time spent to see the patient, examine the patient on the floor, review data and lab results, discuss treatment plan with nursing staff around 45 minutes
Anticipated Discharge: > 48 hours
Subjective/Interval History
-
Date of Service: April 14, 2024
Receiving morphine gtt, seems comfortable but times mildly confused
Objective Data
-
Vital Signs:
Vital Signs
Temp Pulse Resp BP Pulse Ox
98.1 F 86 18 107/53 94
04/14/24 07:15 04/14/24 07:15 04/14/24 07:15 04/14/24 07:15 04/14/24 07:15
I&O
04/13/24 04/14/24 04/15/24
06:59 06:59 06:59
Intake Total 900 / 900 480 / 480
Output Total 345 / 345
Balance 555 / 555 455 / 455
--- NOTE | 2024-04-14 13:17 | HOSPNOTE ---
Patient continues on step 2 morphine drip and will remain inpatient hospice and will be seen daily by medical practice administrator. Please medicate prior to repositioning.
--- NOTE | 2024-04-14 15:04 | CM ---
Patient seen at bedside.
On hospice services
Resting comfortably
[2024-04-14 19:34] VITALS: BP 112/57
[2024-04-15] MEDS: MORPHINE SULFATE 2 MG IV ×3 (04:59→17:51)
[2024-04-15 07:15] VITALS: BP 114/59
--- NOTE | 2024-04-15 12:11 | W.PN.HOSP.TC ---
Today's Communication/Plan
-
.
Assessment / Plan
Assessment / Plan
Physical Exam
General: No Apparent Distress and Other (frail appearing)
HEENT: nasal O2 , no deformities.
Respiratory: no audible Wheezes.
Cardiac: S1/S2 and Regular Rhythm
GI: Soft + ileostomy and postop findings.
Musculoskeletal: No Edema
neuro: awake, answered simple questions.
Skin: Warm and Dry; No Rash
Psych: Calm
A/P:
Mr. 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
# Acute bowel perforation post colonoscopy
s/p exploratory laparotomy, abdominal colectomy with loop ileostomy by Dr Regalado on 04/02 for perforated cecum, intestinal malrotation, splenic flexure mass, small bowel adhesion
continue post op care
#adenocarcinoma of the colon.
Currently on comfort care with pain control using morphine gtt
Pain was difficult to control despite using aggressive pain control regimen. Overall prognosis poor and patient decided on going into hospice care. Hospice consulted. He was placed on comfort measures. Patient continued to do poorly and he was
felt to meet criteria for inpatient hospice care. He will be continuing on comfort care measures and transition to inpatient hospice.
#Hypotension
# LV Thrombus
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
# Shock
# Multifactorial hypovolemic/ hemorrhagic / septic shock/cardiogenic
#Acute blood loss anemia
# Operative and post op intubation
Extubated on 04/03
# Hx Radiation Proctitis
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
Hx of Secondary esophageal varices
# Chronic thrombocytopenia/ pancytopenia
# HANY
Creatinine down to 1.1
# Hx Metastatic Prostate CA
Primary oncologist Dr Blackwood and Dr Ruenes
Updated Dr Blackwood
#Hx Alcoholic Liver cirrhosis
Hx of ascites s/p paracentesis
# Hypokalemia,
# Hypocalcemia,
#GERD
CODE STATUS:
DNR
Total time spent to see the patient, examine the patient on the floor, review data and lab results, discuss treatment plan with nursing staff around 45 minutes
Anticipated Discharge: > 48 hours
Subjective/Interval History
-
Date of Service: April 15, 2024
No fevers
Objective Data
-
Vital Signs:
Vital Signs
Temp Pulse Resp BP Pulse Ox
98.3 F 85 20 114/59 95
04/15/24 07:15 04/15/24 07:15 04/15/24 07:15 04/15/24 07:15 04/15/24 07:15
I&O
04/14/24 04/15/24 04/16/24
06:59 06:59 06:59
Intake Total 480 / 480 720 / 720
Output Total 75 / 75 850 / 850
Balance 455 / 455 645 / 645 -850 / -850
--- NOTE | 2024-04-15 12:27 | HOSPNOTE ---
Patient was bladder scanned for a large amount of urine. Corley catheter was placed and drained 850ml of dark jagjit urine. Patient was given a PRN dose of morphine prior. Mouth care was performed and patient appears to be resting comfortably at the
end of my visit. The daughter was bedside and support was given and explained about the corley catheter. Patient will be seen daily by hospice nurse.
--- NOTE | 2024-04-15 13:57 | CM ---
Reviewed the chart notes. Patient remains on comfort care. CM continues to be available to patient/family.
Plan: Comfort care.
[2024-04-15 19:10] VITALS: BP 145/74
[2024-04-15] MEDS: MORPHINE 100 IV (19:49)
[2024-04-16] MEDS: MORPHINE SULFATE 2 MG IV ×5 (02:43→20:15)
[2024-04-16 07:22] VITALS: BP 119/67
--- NOTE | 2024-04-16 10:40 | W.PN.HOSP.TC ---
Today's Communication/Plan
-
c/w comfort care
Assessment / Plan
Assessment / Plan
Physical Exam
General: No Apparent Distress and Other (frail appearing)
HEENT: nasal O2 , no deformities.
Respiratory: no audible Wheezes.
Cardiac: S1/S2 and Regular Rhythm
GI: Soft + ileostomy and postop findings.
Musculoskeletal: No Edema
neuro: awake, answered simple questions.
Skin: Warm and Dry; No Rash
Psych: Calm
A/P:
Mr. 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
# Acute bowel perforation post colonoscopy
s/p exploratory laparotomy, abdominal colectomy with loop ileostomy by Dr Regalado on 04/02 for perforated cecum, intestinal malrotation, splenic flexure mass, small bowel adhesion
continue post op care
#adenocarcinoma of the colon.
Currently on comfort care with pain control using morphine gtt
Pain was difficult to control despite using aggressive pain control regimen. Overall prognosis poor and patient decided on going into hospice care. Hospice consulted. He was placed on comfort measures. Patient continued to do poorly and he was
felt to meet criteria for inpatient hospice care. He will be continuing on comfort care measures and transition to inpatient hospice.
# Acute urinary retention
s/p Hicks catheter.
#Hypotension
# LV Thrombus
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
# Shock
# Multifactorial hypovolemic/ hemorrhagic / septic shock/cardiogenic
#Acute blood loss anemia
# Operative and post op intubation
Extubated on 04/03
# Hx Radiation Proctitis
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
Hx of Secondary esophageal varices
# Chronic thrombocytopenia/ pancytopenia
# HANY
Creatinine down to 1.1
# Hx Metastatic Prostate CA
Primary oncologist Dr Blackwood and Dr Quinteros
Updated Dr Blackwood
#Hx Alcoholic Liver cirrhosis
Hx of ascites s/p paracentesis
# Hypokalemia,
# Hypocalcemia,
#GERD
CODE STATUS:
DNR
Total time spent to see the patient, examine the patient on the floor, review data and lab results, discuss treatment plan with nursing staff around 45 minutes
Anticipated Discharge: > 48 hours
Subjective/Interval History
-
Date of Service: April 16, 2024
No fevers
Objective Data
-
Vital Signs:
Vital Signs
Temp Pulse Resp BP Pulse Ox
97.8 F 96 20 119/67 89
04/16/24 07:22 04/16/24 07:22 04/16/24 07:22 04/16/24 07:22 04/16/24 07:22
I&O
04/15/24 04/16/24 04/17/24
06:59 06:59 06:59
Intake Total 720 / 720 880 / 880
Output Total 75 / 75 1710 / 1710
Balance 645 / 645 -830 / -830
--- NOTE | 2024-04-16 11:07 | HOSPNOTE ---
pupil personnel worker visited with patient who is currently GIP level of care to provide supportive services as well as to complete intial RETAIL [employer]ER assessment. Patient is an 84 year old who was recently admitted onto hospice services with primary
diagnosis of prostate cancer. Patient was asleep throughout RETAIL B[employer]ER visit. Daughter Luly was present at bedside along with patient's sister and another family member. insulation worker interior surface spoke privately with daughter who confirmed that her mom now knows
that patient is on hospice and is having a hard time coming to the hospital to visit patient now knowing. insulation worker interior surface updated hospice team that spouse is now aware. Patient is on step 2 morphine drip for pain management. Patient did not show any
physical signs of pain during visit. Patient has no appetite. Hx of alcohol abuse. Patient has three children as well as another child who had passed. Daughter confirmed that patient will be cremated and could not remember name of crematorium during
conversation. Daughter appears to be coping appropriately. insulation worker interior surface provided contact information and encouraged for family to call for supportive services needed. insulation worker interior surface will visit at a frequency of twice a week while patient is GIP
level of care. Patient remains GIP level of care for titration of medication for pain management. Prior to being admitted, patient resided with at [facility] in [place]. Discharge planning continues.
--- NOTE | 2024-04-16 11:55 | HOSPNOTE ---
Upon arrival patient appears uncomfortable the nurse all morning has been suggesting a PRN dose of morphine and the patient was refusing. I spoke with patient on the importance of managing pain and accepting the medication. The patient is now
wanting the medication and also seems very anxious. Patient will be given PRN dose of morphine and ativan. Will check on patient later in the day. Patient will be seen daily by hospice nurse.
--- NOTE | 2024-04-16 12:01 | CM ---
Patient remains on GIP hospice, CM will continue to follow for any discharge planning needs.
Plan;GIP hospice
[2024-04-16] MEDS: ATIVAN 0.5 MG IV (12:41)
[2024-04-16] MEDS: NSS (PRESERVATIVE FREE) 0.25 ML IV (12:42)
[2024-04-16 19:10] VITALS: BP 117/60
[2024-04-17 07:12] VITALS: BP 112/53
[2024-04-17] MEDS: MORPHINE SULFATE 2 MG IV ×5 (08:04→13:17)
[2024-04-17] MEDS: ATIVAN 0.5 MG IV (08:05)
[2024-04-17] MEDS: NSS (PRESERVATIVE FREE) 0.25 ML IV (08:05)
--- NOTE | 2024-04-17 09:22 | W.PN.HOSP.TC ---
Today's Communication/Plan
-
c/w morphine gtt
comfort care
Hicks catheter
PRN Ativan
Assessment / Plan
Assessment / Plan
Physical Exam
General: No Apparent Distress and Other (frail appearing)
HEENT: nasal O2 , no deformities.
Respiratory: no audible Wheezes.
Cardiac: S1/S2 and Regular Rhythm
GI: Soft + ileostomy and postop findings.
Musculoskeletal: No Edema
neuro: awake, answered simple questions.
Skin: Warm and Dry; No Rash
Psych: Calm
A/P:
Mr. 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
# Acute bowel perforation post colonoscopy
s/p exploratory laparotomy, abdominal colectomy with loop ileostomy by Dr Regalado on 04/02 for perforated cecum, intestinal malrotation, splenic flexure mass, small bowel adhesion
continue post op care
#adenocarcinoma of the colon.
Currently on comfort care with pain control using morphine gtt
Pain was difficult to control despite using aggressive pain control regimen. Overall prognosis poor and patient decided on going into hospice care. Hospice consulted. He was placed on comfort measures. Patient continued to do poorly and he was
felt to meet criteria for inpatient hospice care. He will be continuing on comfort care measures and transition to inpatient hospice.
# Acute urinary retention
s/p Hicks catheter.
#Hypotension
# LV Thrombus
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
# Shock
# Multifactorial hypovolemic/ hemorrhagic / septic shock/cardiogenic
#Acute blood loss anemia
# Operative and post op intubation
Extubated on 04/03
# Hx Radiation Proctitis
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
Hx of Secondary esophageal varices
# Chronic thrombocytopenia/ pancytopenia
# HANY
Creatinine down to 1.1
# Hx Metastatic Prostate CA
Primary oncologist Dr Blackwood and Dr Quinteros
Updated Dr Blackwood
#Hx Alcoholic Liver cirrhosis
Hx of ascites s/p paracentesis
# Hypokalemia,
# Hypocalcemia,
#GERD
CODE STATUS:
DNR
Total time spent to see the patient, examine the patient on the floor, review data and lab results, discuss treatment plan with nursing staff around 45 minutes
Anticipated Discharge: Within 24 hours
Subjective/Interval History
-
Date of Service: April 17, 2024
Received Ativan after agitation
Objective Data
-
Vital Signs:
Vital Signs
Temp Pulse Resp BP Pulse Ox
98.1 F 90 20 112/53 99
04/17/24 07:12 04/17/24 07:12 04/17/24 07:12 04/17/24 07:12 04/17/24 07:12
I&O
04/16/24 04/17/24 04/18/24
06:59 06:59 06:59
Intake Total 880 / 880 418 / 418
Output Total 1710 / 1710 950 / 950
Balance -830 / -830 -532 / -532
--- NOTE | 2024-04-17 14:33 | HOSPNOTE ---
Patient appears in distress and was medicated with PRN morphine and continues on a drip. Patient will be seen daily by hospice nurse. Patient has really declined and getting agitated and now ativan is scheduled Q2 PRN. Will continue to follow and
support.
[2024-04-17] MEDS: MORPHINE SULFATE 4 MG IV (14:50)
[2024-04-17] MEDS: MORPHINE 100 IV (18:17)
[2024-04-17 19:44] VITALS: BP 112/60
[2024-04-18] MEDS: ROBINUL 0.2 MG IV (05:43)
[2024-04-18] MEDS: MORPHINE SULFATE 4 MG IV ×3 (05:45→21:37)
[2024-04-18] MEDS: FLUSH (NSS) 2 FLUSH IV ×2 (05:50→19:22)
[2024-04-18 07:25] VITALS: BP 176/142
[2024-04-18] MEDS: ATIVAN 0.5 MG IV ×2 (08:07→19:19)
[2024-04-18] MEDS: NSS (PRESERVATIVE FREE) 0.25 ML IV ×2 (08:08→19:21)
--- NOTE | 2024-04-18 10:14 | HOSPNOTE ---
Pt imminently dying, currently receiving step 3 morphine drip for respiratory and pain mgt. Pt unresponsive, fixed gaze, occasional tremors, agonal breathing with absent bases and periods of apnea, PO2 72% RA. Mottling in BLE. Family not present.
Quiet companionship provided. Pt remains apppropriate for GIP level of care for titration of medication for comfort during end stage of life.
--- NOTE | 2024-04-18 12:33 | W.PN.HOSP.TC ---
Today's Communication/Plan
-
Hospice care
Change position
Assessment / Plan
Assessment / Plan
Physical Exam
General: No Apparent Distress and Other (frail appearing)
HEENT: nasal O2 , no deformities.
Respiratory: no audible Wheezes.
Cardiac: S1/S2 and Regular Rhythm
GI: Soft + ileostomy and postop findings.
Musculoskeletal: No Edema
neuro: awake, answered simple questions.
Skin: Warm and Dry; No Rash
Psych: Calm
A/P:
Mr. 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
# Acute bowel perforation post colonoscopy
s/p exploratory laparotomy, abdominal colectomy with loop ileostomy by Dr Regalado on 04/02 for perforated cecum, intestinal malrotation, splenic flexure mass, small bowel adhesion
continue post op care
#adenocarcinoma of the colon.
Currently on comfort care with pain control using morphine gtt
Pain was difficult to control despite using aggressive pain control regimen. Overall prognosis poor and patient decided on going into hospice care. Hospice consulted. He was placed on comfort measures. Patient continued to do poorly and he was
felt to meet criteria for inpatient hospice care. He will be continuing on comfort care measures and transition to inpatient hospice.
# Acute urinary retention
s/p Hicks catheter.
#Hypotension
# LV Thrombus
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
# Shock
# Multifactorial hypovolemic/ hemorrhagic / septic shock/cardiogenic
#Acute blood loss anemia
# Operative and post op intubation
Extubated on 04/03
# Hx Radiation Proctitis
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
Hx of Secondary esophageal varices
# Chronic thrombocytopenia/ pancytopenia
# HANY
Creatinine down to 1.1
# Hx Metastatic Prostate CA
Primary oncologist Dr Blackwood and Dr Quinteros
Updated Dr Blackwood
#Hx Alcoholic Liver cirrhosis
Hx of ascites s/p paracentesis
# Hypokalemia,
# Hypocalcemia,
#GERD
CODE STATUS:
DNR
Total time spent to see the patient, examine the patient on the floor, review data and lab results, discuss treatment plan with nursing staff around 45 minutes
Anticipated Discharge: > 48 hours
Subjective/Interval History
-
Date of Service: April 18, 2024
seems anxious this morning
Objective Data
-
Vital Signs:
Vital Signs
Temp Pulse Resp BP Pulse Ox
98.9 F 111 14 176/142 78
04/18/24 07:25 04/18/24 07:25 04/18/24 07:25 04/18/24 07:25 04/18/24 07:25
I&O
04/17/24 04/18/24 04/19/24
06:59 06:59 05:59
Intake Total 418 / 418 44 / 44
Output Total 950 / 950 890 / 890
Balance -532 / -532 -846 / -846
[2024-04-18] MEDS: MORPHINE 100 IV (13:41)
[2024-04-18 19:22] VITALS: BP 107/68
[2024-04-19] MEDS: MORPHINE SULFATE 4 MG IV ×7 (01:53→16:11)
[2024-04-19 07:14] VITALS: BP 103/55
[2024-04-19] MEDS: ATIVAN 0.5 MG IV ×2 (08:06→13:20)
--- NOTE | 2024-04-19 10:00 | W.PN.HOSP.TC ---
Today's Communication/Plan
-
c/w morphine gtt, PRN Ativan
Assessment / Plan
Assessment / Plan
Physical Exam
General: No Apparent Distress and Other (frail appearing)
HEENT: nasal O2 , no deformities.
Respiratory: no audible Wheezes.
Cardiac: S1/S2 and Regular Rhythm
GI: Soft + ileostomy and postop findings.
Musculoskeletal: No Edema
neuro: awake, answered simple questions.
Skin: Warm and Dry; No Rash
Psych: Calm
A/P:
Mr. 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
# Acute bowel perforation post colonoscopy
s/p exploratory laparotomy, abdominal colectomy with loop ileostomy by Dr Regalado on 04/02 for perforated cecum, intestinal malrotation, splenic flexure mass, small bowel adhesion
continue post op care
#adenocarcinoma of the colon.
Currently on comfort care with pain control using morphine gtt
Pain was difficult to control despite using aggressive pain control regimen. Overall prognosis poor and patient decided on going into hospice care. Hospice consulted. He was placed on comfort measures. Patient continued to do poorly and he was
felt to meet criteria for inpatient hospice care. He will be continuing on comfort care measures and transition to inpatient hospice.
# Acute urinary retention
s/p Hicks catheter.
#Hypotension
# LV Thrombus
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
# Shock
# Multifactorial hypovolemic/ hemorrhagic / septic shock/cardiogenic
#Acute blood loss anemia
# Operative and post op intubation
Extubated on 04/03
# Hx Radiation Proctitis
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
Hx of Secondary esophageal varices
# Chronic thrombocytopenia/ pancytopenia
# HANY
Creatinine down to 1.1
# Hx Metastatic Prostate CA
Primary oncologist Dr Blackwood and Dr Quinteros
Updated Dr Blackwood
#Hx Alcoholic Liver cirrhosis
Hx of ascites s/p paracentesis
# Hypokalemia,
# Hypocalcemia,
#GERD
CODE STATUS:
DNR
Total time spent to see the patient, examine the patient on the floor, review data and lab results, discuss treatment plan with nursing staff around 45 minutes
Anticipated Discharge: Within 24 hours
Subjective/Interval History
-
Date of Service: April 19, 2024
Seems in respiratory distress
Objective Data
-
Vital Signs:
Vital Signs
Temp Pulse Resp BP Pulse Ox
98.8 F 90 10 103/55 81
04/19/24 07:14 04/19/24 07:14 04/19/24 07:14 04/19/24 07:14 04/19/24 07:14
I&O
04/18/24 04/19/24 04/20/24
07:59 06:59 06:59
Intake Total
Output Total
Balance
[2024-04-19] MEDS: MORPHINE 100 IV (13:42)
--- NOTE | 2024-04-19 14:58 | CHAP ---
Called by nursing for Mr. Guy, who was 'in need of a frog farmer or someone to talk to.' At the time of my visit, Michael was sleeping, non-responsive, and the Tool Smith from [facility] was present. After asking the family if they would like the
frog farmer to come, I contacted [facility] with the request. Emotional and spiritual support provided, along with a prayer blanket.
--- NOTE | 2024-04-19 16:39 | HOSPNOTE ---
Patient is GIP level of hospice care for the management of pain, dyspnea and anxiety that could not be managed in the outpatient setting. Patient is increased to Step 4 of the morphine drip with an increase to step 5 due to breakthrough doses of IVP
morphine being needed. Patient has also needed IVP prn ativan for anxiety as well. No family is present at bedside. Primary RN reports that they were here earlier today. Emotional support provided. Patient is actively dying and does appear
imminent. Informal report with Primary RN who agrees. Hospice will continue to support daily.
[2024-04-19] MEDS: MORPHINE SULFATE 6 MG IV (17:08)
--- NOTE | 2024-04-19 18:39 | W.PN.DEATH ---
Pronouncement of
-
Called to see patient to pronounce.
No spontaneous heart tones or respirations noted.
Patient not responsive to verbal stimuli.
Patient is pronounced .
Time of : 18:20
Date of : 04/19/24
Cause of : Colon Adenocarcinoma
Family Notified: Yes (Daughter Luly and Talia called and notified.)
--- NOTE | 2024-04-19 21:18 | PTCARENOTE ---
Pt pronounced prior to shift change, no family reported to visit by pt's daughter, [facility] called by tristen BRADLEY. Postmortem care performed [place] [facility] [place].
== END 2024-04-19 18:20 | disposition expired | DRG 951 ==
LOC: 2 NORTH 14:24
PROVIDERS: ADMITTING PHYSICIAN Hospitalist
DX: Z51.5 Encounter for palliative care (principal); K63.1 Perforation of intestine (nontraumatic); C79.51 Secondary malignant neoplasm of bone; C18.9 Malignant neoplasm of colon, unspecified; C61 Malignant neoplasm of prostate; D69.6 Thrombocytopenia, unspecified; Z66 Do not resuscitate; I12.9 Hypertensive chronic kidney disease with stage 1 through stage 4 chronic kidney disease, or unspecified chronic kidney disease